=== PATIENT | female | born 1965 | race Caucasian/White ===

== ENCOUNTER → 2019-01-09 14:50 | Outpatient (CLI) | payer OTHER, SELFPAY ==
--- NOTE | 2019-01-09 14:55 | XR_ITS ---
XR foot wt bearing RT 3V HISTORY: ITS.REASON: pain ORDERING PHYSICIAN: Bebe Matias DPM PATIENT AGE: 53 years COMPARISON: None FINDINGS: No fracture or dislocation. No lytic or blastic change. There is normal mineralization.. The joint spaces are well-preserved. No significant degenerative/arthritic changes. No erosive changes evident. There is a 12 mm calcaneal spur. A small calcific density is present at the medial and distal aspect of the proximal phalanx of the third toe and could represent an old avulsion fracture. IMPRESSION: 1. No acute finding. 2. Prominent calcaneal spur. 3. Possible old avulsion fracture of the proximal phalanx of the third toe
--- NOTE | 2019-01-09 14:55 | XR_ITS ---
XR ankle wt bearing RT min 3V HISTORY: ITS.REASON: pain ORDERING PHYSICIAN: Bebe Matias DPM PATIENT AGE: 53 years Comparison: 9 FINDINGS: No fracture or dislocation. No lytic or blastic change. There is normal mineralization.. The joint spaces are well-preserved. No significant degenerative/arthritic changes. No erosive changes evident. IMPRESSION: Negative ankle, no acute finding
--- NOTE | 2019-01-09 14:55 | XR_ITS ---
XR ankle wt bearing LT min 3V HISTORY: ITS.REASON: pain ORDERING PHYSICIAN: Bebe Matias DPM PATIENT AGE: 53 years Comparison: None FINDINGS: A well-circumscribed small bony fragment is present at the tip of the medial malleolus and may be due to an old fracture or accessory center of ossification. Minimal hypertrophic changes are present at the tip of the lateral malleolus. Scattered soft tissue calcifications are present may be due to phleboliths. No acute fracture or dislocation evident. IMPRESSION: Chronic changes, no acute finding
--- NOTE | 2019-01-09 14:55 | XR_ITS ---
XR foot wt bearing LT 3V HISTORY: ITS.REASON: pain ORDERING PHYSICIAN: Bebe Matias DPM PATIENT AGE: 53 years COMPARISON: None FINDINGS: There is a small calcaneal spur along the plantar surface of the calcaneus at 10 mm. Minimal spurring is also present involving the anterior distal aspect of the navicular. No fracture or dislocation. No lytic or blastic change. Normal alignment IMPRESSION: Minimal hypertrophic changes of the navicular a small calcaneal spur noted otherwise negative
== END ==
PROVIDERS: PCP Nurse Practitioner; Visit Provider Podiatrist
DX: S99.911A Unspecified injury of right ankle, initial encounter (principal); M25.571 Pain in right ankle and joints of right foot
CPT/HCPCS: 73610; 73630

== ENCOUNTER → 2019-07-10 14:07 | Outpatient (POV) | payer OTHER, SELFPAY | DX: Z00.00 Encounter for general adult medical examination without abnormal findings (principal) ==

== ENCOUNTER → 2022-01-10 19:24 | Outpatient (CLI) | payer OTHER, SELFPAY | PROVIDERS: PCP Nurse Practitioner Family; Visit Provider Nurse Practitioner Family | DX: R06.83 Snoring; R40.0 Somnolence | CPT/HCPCS: 95806 ==

== ENCOUNTER → 2022-02-16 09:31 | Outpatient (CLI) | payer OTHER, SELFPAY ==
[2022-02-16 10:25] LABS: Basophils # 0.2 K/mm3 (0-0.2); Basophils % 1.1 % (0.1-2.0); Eosinophils # 0.2 K/mm3 (0.0-0.4); Eosinophils % 1.2 % (0.1-12.0); Hemoglobin 15.8 g/dL (12.2-16.2); Lymphocytes # 2.9 K/mm3 (0.7-4.5); Lymphocytes % 19.3 % (10-50); Mean Corpuscular HGB Conc 35.2 g/dL (31.8-35.4); Mean Corpuscular Hemoglobin 33.9 pg (27.0-31.2); Mean Corpuscular Volume 96.4 fl (81-99); Mean Platelet Volume 10.8 fl (7.4-10.4); Monocytes # 0.7 K/mm3 (0.1-1.0); Monocytes % 4.5 % (1.7-9.3); Platelet Count 208 K/mm3 (142-424); Red Blood Count 4.66 M/mm3 (4.20-5.40); White Blood Count 14.9 K/mm3 (4.8-10.8)
[2022-02-16 11:34] LABS: Chloride 105 mmol/L (98-107); Potassium 3.6 mmoL/L (3.5-5.1); Sodium 138 mmol/L (136-145)
[2022-02-16 11:36] LABS: Alanine Aminotransferase 20 U/L (12-78); Aspartate Amino Transferase 22 U/L (14-36); Blood Urea Nitrogen 13 mg/dl (7-17); Estimated Glomerular Filt Rate 65 ml/min (>60); GFR (African American) 78 ML/MIN (>60)
[2022-02-16 11:37] LABS: Albumin Level 4.3 g/dl (3.5-5.0); Albumin/Globulin Ratio 1.4 (1.1-1.8); Alkaline Phosphatase 86 U/L (38-126); Anion Gap 12.6 mEq/L (5-15); Bilirubin,Total 0.3 mg/dl (0.2-1.3); Calcium 8.6 mg/dl (8.4-10.2); Carbon Dioxide 24 mmol/L (22.0-30.0); Globulin 3.1 g/dL (1.3-3.2); Glucose 122 mg/dl (74-100); Total Protein,Serum 7.4 g/dl (6.3-8.2)
[2022-02-16 11:38] LABS: Hemoglobin A1C 6.4 % (4.0-6.0)
[2022-02-16 12:13] LABS: Ferritin 122 ng/ml (11.1-264)
== END ==
PROVIDERS: Visit Provider Specialist
DX: E11.59 Type 2 diabetes mellitus with other circulatory complications (principal); E83.10 Disorder of iron metabolism, unspecified; G25.81 Restless legs syndrome; G43.009 Migraine without aura, not intractable, without status migrainosus; I10 Essential (primary) hypertension; Z79.84 Long term (current) use of oral hypoglycemic drugs
CPT/HCPCS: 36415; 80053; 82728; 83036; 85025

== ENCOUNTER → 2022-02-18 10:46 | Outpatient (CLI) | payer OTHER, SELFPAY | PROVIDERS: Visit Provider Nurse Practitioner Family | DX: Z00.00 Encounter for general adult medical examination without abnormal findings (principal); D72.829 Elevated white blood cell count, unspecified; R22.1 Localized swelling, mass and lump, neck; R52 Pain, unspecified | CPT/HCPCS: 87086 ==

== ENCOUNTER → 2022-03-02 09:44 | Outpatient (CLI) | payer OTHER, SELFPAY ==
--- NOTE | 2022-03-02 09:44 | US_ITS ---
FINAL REPORT CLINICAL HISTORY: palpable area left neck FINDINGS: limited sonographic images of the left neck were obtained. At the level of the palpable abnormality is an ovoid, hypoechoic mass measuring 2.7 x 1.8 cm. This does not clearly represent a lymph node. The submandibular and parotid glands are unremarkable. IMPRESSION: Mass at the level of the palpable abnormality, neoplasia is not excluded . Recommend follow-up infuse neck CT to better evaluate . If clinically indicated, this should be amenable to needle sampling. Reviewed, Interpreted and Dictated by Kirill Gonsales MD Transcribed by Tracy Turner Authenticated by Kirill Gonsales MD on 03/02/2022 01:36:48 PM [facility]
[2022-03-02 10:15] LABS: MANUAL DIFFERENTIAL MANUAL DIFFERENTIAL (MANUAL DIFF)
[2022-03-02 10:51] LABS: Basophils # 0.1 K/mm3 (0-0.2); Basophils % 0.6 % (0.1-2.0); Eosinophils # 0.2 K/mm3 (0.0-0.4); Hematocrit 45.2 % (37.0-47.0); Hemoglobin 15.6 g/dL (12.2-16.2); Lymphocytes % 33.5 % (10-50); Mean Corpuscular HGB Conc 34.5 g/dL (31.8-35.4); Mean Corpuscular Hemoglobin 33.6 pg (27.0-31.2); Mean Corpuscular Volume 97.4 fl (81-99); Mean Platelet Volume 10.4 fl (7.4-10.4); Monocytes # 0.4 K/mm3 (0.1-1.0); Monocytes % 4.8 % (1.7-9.3); Neutrophils # 5.3 K/mm3 (1.8-7.8); Platelet Count 222 K/mm3 (142-424); Red Blood Count 4.64 M/mm3 (4.20-5.40); Red Cell Distribution Width 13.7 % (11.5-17.5); White Blood Count 8.9 K/mm3 (4.8-10.8)
[2022-03-02 11:41] LABS: Erythrocyte Sedimentation Rate 27 mm/hr (0-30)
[2022-03-02 11:52] LABS: Alanine Aminotransferase 27 U/L (12-78); Albumin Level 4.3 g/dl (3.5-5.0); Albumin/Globulin Ratio 1.4 (1.1-1.8); Alkaline Phosphatase 87 U/L (38-126); Anion Gap 11.3 mEq/L (5-15); Aspartate Amino Transferase 27 U/L (14-36); Bilirubin,Total 0.3 mg/dl (0.2-1.3); Blood Urea Nitrogen 14 mg/dl (7-17); Carbon Dioxide 29 mmol/L (22.0-30.0); Chloride 102 mmol/L (98-107); Chol/HDL Ratio 4.3 (1-3.5); Cholesterol 124 mg/dl (140-200); Estimated Glomerular Filt Rate 65 ml/min (>60); GFR (African American) 78 ML/MIN (>60); Globulin 3.1 g/dL (1.3-3.2); Glucose 126 mg/dl (74-100); HDL Cholesterol 29 mg/dl (40-60); Potassium 3.3 mmoL/L (3.5-5.1); Sodium 139 mmol/L (136-145); Total Protein,Serum 7.4 g/dl (6.3-8.2); Triglycerides 239 mg/dl (30-150); Uric Acid 5.4 mg/dl (2.5-6.2); VLDL Cholesterol 48 mg/dL (0-40)
[2022-03-02 12:03] LABS: Direct LDL Cholesterol 51.87 mg/dL (100-129)
[2022-03-02 12:10] LABS: 25-OH Vitamin D, Total 24.9 ng/mL (30-100)
[2022-03-02 12:11] LABS: T4 (Thyroxine) 8.4 ug/dl (5.53-11.0)
[2022-03-02 12:24] LABS: Thyroid Stimulating Hormone 3.22 uIU/mL (0.465-4.68)
[2022-03-02 13:41] LABS: Lymphocytes % 30 % (10-50); Monocytes % 6 % (2-9); Neutrophils % 64 % (42-76); Total Cells Counted 100
[2022-03-02 13:42] LABS: Platelet Estimate Normal; RBC Morphology Normal
[2022-03-03 08:18] LABS: RA Latex Turbid. 26.5 IU/mL (<14.0)
[2022-03-04 10:14] LABS: Peripheral Smear Review Scanned Result
[2022-03-04 21:43] LABS: Antinuclear Antibodies, IFA POSITIVE
== END ==
PROVIDERS: PCP Nurse Practitioner Family; Visit Provider Nurse Practitioner Family
DX: Z00.00 Encounter for general adult medical examination without abnormal findings (principal); R22.1 Localized swelling, mass and lump, neck; D72.829 Elevated white blood cell count, unspecified; R52 Pain, unspecified
CPT/HCPCS: 36415; 76536; 80053; 80061; 82306; 84436; 84443; 84550; 85007; 85014; 85018; 85025; 85048; 85049; 85651; 86038; 86431

== ENCOUNTER → 2022-04-14 10:50 | Outpatient (CLI) | payer OTHER, SELFPAY ==
[2022-04-14 10:57] LABS: MANUAL DIFFERENTIAL MANUAL DIFFERENTIAL (MANUAL DIFF)
[2022-04-14 11:18] LABS: Basophils # 0.2 K/mm3 (0-0.2); Basophils % 1.8 % (0.1-2.0); Eosinophils # 0.2 K/mm3 (0.0-0.4); Eosinophils % 2.3 % (0.1-12.0); Hematocrit 45.7 % (37.0-47.0); Hemoglobin 15.5 g/dL (12.2-16.2); Lymphocytes # 3.4 K/mm3 (0.7-4.5); Lymphocytes % 34.2 % (10-50); Mean Corpuscular HGB Conc 33.9 g/dL (31.8-35.4); Mean Corpuscular Hemoglobin 33.5 pg (27.0-31.2); Mean Corpuscular Volume 98.7 fl (81-99); Monocytes # 0.5 K/mm3 (0.1-1.0); Monocytes % 5.1 % (1.7-9.3); Neutrophils # 5.6 K/mm3 (1.8-7.8); Neutrophils % 56.6 % (37.0-80.0); Platelet Count 200 K/mm3 (142-424); Red Blood Count 4.63 M/mm3 (4.20-5.40); Red Cell Distribution Width 13.7 % (11.5-17.5); White Blood Count 9.8 K/mm3 (4.8-10.8)
[2022-04-14 14:42] LABS: Anisocytosis 1+; Eosinophils % 1 % (0-3); Lymphocytes % 34 % (10-50); Macrocytosis 1+; Monocytes % 12 % (2-9); Neutrophils % 53 % (42-76); Platelet Estimate Normal; Total Cells Counted 100
== END ==
PROVIDERS: Visit Provider Specialist
DX: D72.829 Elevated white blood cell count, unspecified (principal)
CPT/HCPCS: 36415; 85007; 85014; 85018; 85048; 85049

== ENCOUNTER → 2022-04-27 07:32 | Outpatient (CLI) | payer OTHER, SELFPAY ==
--- NOTE | 2022-04-27 07:32 | US_ITS ---
FINAL REPORT CLINICAL HISTORY: left neck pain FINDINGS: Ultrasound guided left neck massbiopsy. HISTORY: Left neckmass. PROCEDURE: After informed consent was obtained and a time-out was performed, the patient was prepped and draped in usual sterile fashion over the left anterior neck. Utilizing local anesthesia and sterile technique with a 25-gauge needle, access to the masswas obtained. A total of 2 passes were made. The patient experienced a great deal of pain when the needle was placed into the mass. The pain was described as electrical and traveling to the posterior scapular region. The patient was unable to tolerate any further biopsy passes. The patient received no conscious sedation. IMPRESSION: Status post ultrasound guided biopsy of a thyroid nodule which was limited by the patient's severe pain experienced when needle was placed into the mass. Only 2 passes were able to be obtained. Reviewed, Interpreted and Dictated by Kalyan Romano III, MD Transcribed by GURDEEP Thacker Authenticated and . [facility]
== END ==
PROVIDERS: PCP Nurse Practitioner Family; Visit Provider Otolaryngology
DX: R59.0 Localized enlarged lymph nodes (principal)
CPT/HCPCS: 10005

== ENCOUNTER → 2022-05-25 16:31 | Outpatient (CLI) | payer OTHER, SELFPAY ==
[2022-05-25 18:31] LABS: Blood Urea Nitrogen 10 mg/dl (7-17); Estimated Glomerular Filt Rate 57 ml/min (>60); GFR (African American) 69 ML/MIN (>60)
== END ==
PROVIDERS: PCP Nurse Practitioner Family; Visit Provider Otolaryngology
DX: Z01.812 Encounter for preprocedural laboratory examination (principal)
CPT/HCPCS: 36415; 82565; 84520

== ENCOUNTER → 2022-05-26 08:25 | Outpatient (CLI) | payer OTHER, SELFPAY ==
--- NOTE | 2022-05-26 08:26 | MR_ITS ---
FINAL REPORT CLINICAL HISTORY: left neck mass. LEFT ARM PAIN. MIGRAINE HEADACHE. MASS ON LEFT SIDE OF NECK. 19ML PROHANCE GIVEN. COMPARISON: Prior ultrasounds dated March 02, 2022 and April 27, 2022 FINDINGS: Multiplanar MR imaging of the cervical spine was performed without and with contrast. On the sagittal T2-weighted images, disc degeneration is seen throughout. There is endplate change at C5-6 and C6-7. The vertebral alignment is normal. There is straightening of the normal cervical curvature which could be due to positioning or muscle spasm. There is no evidence of fracture. No bony mass is identified. The cervical spinal cord has an unremarkable appearance without evidence of mass, edema or syrinx. C2-3: No significant canal stenosis or neural foraminal narrowing is identified. C3-4:There are left uncovertebral osteophytes. No significant canal stenosis or neural foraminal narrowing is identified. C4-5: An annular bulge is present. No significant canal stenosis or neural foraminal narrowing is identified. C5-6: There is a disc osteophyte complex. There is severe right and mild left neural foraminal narrowing. There is a small central disc protrusion. C6-7: There is a disc osteophyte complex with severe bilateral neural foraminal narrowing. There is mild central canal stenosis with an AP thecal sac diameter of 9 mm. C7-T1: No significant canal stenosis or neural foraminal narrowing is identified. There is a 28 mm heterogeneous well-circumscribed mass in the left side of the neck at the level of C5. This demonstrates mostly central contrast enhancement and has an appearance most worrisome for neoplasm. IMPRESSION: Enhancing 28 mm left neck mass most worrisome for neoplasm. This may represent a nerve sheath tumor. Multilevel degenerative disc disease with areas of neural foraminal narrowing and central canal stenosis. Small central disc protrusion at C5-C6. Reviewed, Interpreted and Dictated by Kalyan Romano III, MD Transcribed by Cale Urbina Authenticated and [facility]
== END ==
PROVIDERS: PCP Nurse Practitioner Family; Visit Provider Otolaryngology
DX: R59.0 Localized enlarged lymph nodes (principal)
CPT/HCPCS: 72156; 76376; A9576

== ENCOUNTER → 2022-07-05 06:45 | Outpatient (CLI) | payer OTHER, SELFPAY | PROVIDERS: Visit Provider Nurse Practitioner Family | DX: B35.1 Tinea unguium (principal) | CPT/HCPCS: 87102; 87206; 87220 ==

== ENCOUNTER 2022-09-29 16:30 | Outpatient (RCR) | payer OTHER, SELFPAY ==
--- NOTE | 2022-08-30 18:01 | HMH.PTOPEV ---
PT Outpatient Evaluation Rehab PT Outpatient Evaluation Start: 08/30/22 16:44 Freq: Status: Active Protocol: Document 08/30/22 16:44 LAWANDA (Rec: 08/30/22 18:01 LAWANDA [id number]) E-signed By Joselyn Rahman, PT Outpatient Therapy Subjective History Subjective History Pt is a 57 y/o female that reports she felt a lump on the side of her neck awhile ago but was afraid to get it checked out due to family history of cancer. Pt reports she was going to the chiropractor in January because her neck was hurting and he referred her to the doctor after noticing the lump. Pt reports she noticed herself stumbling and intermittent paresthesia to the LUE for awhile as well. Pt had a MRI of her cervical spine performed at [facility] on 05/26/22 with report of enhancing 28 mm left neck mass most worrisome for neoplasm.This may represent a nerve sheath tumor.Multilevel degenerative disc disease with areas of neural foraminal narrowing and central canal stenosis.Small central disc protrusion at C5- C6. Pt reports she had a brachial N tumor sheath removed at on 07/19/22 which improved migraine symptoms, neck pain and stumbling. Pt reports they sent the mass out for testing and was found to be benign. Pt's main complaint is left shoulder weakness and limited mobility following surgery. Pt states it felt like my left shoulder was hit with a hammer after surgery. Pt reports she is unable to lift her arm overhead such as to style or wash her hair. Pt denies current neck pain or paresthesia. Pt reports random , intermittent sharp twinges
--- NOTE | 2022-09-29 18:09 | HMH.RHREAS ---
Rehab Reassessment Rehab OP Re-assessment Start: 09/29/22 16:31 Freq: Status: Active Protocol: Document 09/29/22 17:52 DEBORAHKEHINDE (Rec: 09/29/22 18:09 LAWANDA [id number]) E-signed By Joselyn Rahman, PT Rehab Re-assessment Subjective Subjective Pt reports she feels close to 100% improved since starting PT. Pt continues to deny cervical or shoulder pain with only intermittent twinges of pain around the cervical incision. Pt reports within the last week she has noticed a lot of improvements with left shoulder AROM and strength but still notices some weakness with lifting items and protective habits of the shoulder. Objective Objective Notes Cervical AROM: flex 50, ext 40 , RLF 40, LLF 45, Rrot 65, Lrot 65 Shoulder AROM: WNL (seated and supine) LUE MMT: shoulder flex/abd 4/5 , ER/IR 4+/5, elbow flex/ext 5 /5 Assessment Progress Assessment Progressing as Expected Assessment Notes Pt has attended 6 PT visits consisting of aerobic exercise , cervical and shoulder mobility, strengthening and stretching along with modalities with good tolerance . Pt demonstrated improved cervical and shoulder AROM and strength this date. Pt has met all PT goals and is appropriate to discharge to independent [facility]. Pt was provided with HEP and theraband to continue shoulder strengthening independently. Patient goals met ST/5 LT/9 Goals Not Met n/a Revised Goals n/a Plan Plan Discharge to independent HEP Frequency of Therapy 0 Duration of therapy 0 Time and Billing Re-Eval Time 8 Re-Eval Billing Units 1 PHYSICIAN CERTIFICATION:
== END 2022-09-29 16:35 | disposition home or self-care (01) ==
LOC: PT 16:30
PROVIDERS: PCP Nurse Practitioner Family; Visit Provider Nurse Practitioner Family
DX: M54.2 Cervicalgia (principal); D36.10 Benign neoplasm of peripheral nerves and autonomic nervous system, unspecified
CPT/HCPCS: 97010; 97014; 97035; 97110; 97163; 97164; 97530; 97535; G0283

== ENCOUNTER → 2022-10-11 15:14 | Outpatient (CLI) | payer OTHER, SELFPAY ==
[2022-10-11 16:09] LABS: Hemoglobin A1C 6.8 % (4.0-6.0)
[2022-10-11 16:42] LABS: Chloride 98 mmol/L (98-107); Potassium 3.6 mmoL/L (3.5-5.1); Sodium 140 mmol/L (136-145)
[2022-10-11 16:44] LABS: Alanine Aminotransferase 27 U/L (12-78); Aspartate Amino Transferase 27 U/L (14-36); Blood Urea Nitrogen 17 mg/dl (7-17); Estimated Glomerular Filt Rate 57 ml/min (>60); GFR (African American) 69 ML/MIN (>60)
[2022-10-11 16:45] LABS: Albumin Level 4.6 g/dl (3.5-5.0); Albumin/Globulin Ratio 1.4 (1.1-1.8); Alkaline Phosphatase 81 U/L (38-126); Anion Gap 16.6 mEq/L (5-15); Calcium 10.1 mg/dl (8.4-10.2); Carbon Dioxide 29 mmol/L (22.0-30.0); Globulin 3.3 g/dL (1.3-3.2); Glucose 160 mg/dl (74-100); Total Protein,Serum 7.9 g/dl (6.3-8.2)
[2022-10-11 16:50] LABS: C-Reactive Protein 3.9 mg/L (0-4)
[2022-10-11 16:53] LABS: Bilirubin,Total < 0.1 mg/dl (0.2-1.3)
[2022-10-11 17:17] LABS: Erythrocyte Sedimentation Rate 59 mm/hr (0-30)
[2022-10-11 17:23] LABS: Basophils # 0.1 K/mm3 (0-0.2); Basophils % 1.2 % (0.1-2.0); Eosinophils # 0.3 K/mm3 (0.0-0.4); Eosinophils % 3.4 % (0.1-12.0); Hematocrit 44.9 % (37.0-47.0); Hemoglobin 15.1 g/dL (12.2-16.2); Lymphocytes # 3.6 K/mm3 (0.7-4.5); Lymphocytes % 36.8 % (10-50); Mean Corpuscular HGB Conc 33.7 g/dL (31.8-35.4); Mean Corpuscular Hemoglobin 32.6 pg (27.0-31.2); Mean Corpuscular Volume 96.8 fl (81-99); Mean Platelet Volume 10.3 fl (7.4-10.4); Monocytes # 0.5 K/mm3 (0.1-1.0); Monocytes % 5.2 % (1.7-9.3); Neutrophils # 5.2 K/mm3 (1.8-7.8); Neutrophils % 53.3 % (37.0-80.0); Platelet Count 240 K/mm3 (142-424); Red Blood Count 4.64 M/mm3 (4.20-5.40); Red Cell Distribution Width 13.3 % (11.5-17.5); White Blood Count 9.8 K/mm3 (4.8-10.8)
== END ==
PROVIDERS: PCP Nurse Practitioner Family; Visit Provider Nurse Practitioner Family
DX: E11.69 Type 2 diabetes mellitus with other specified complication (principal); Z79.84 Long term (current) use of oral hypoglycemic drugs
CPT/HCPCS: 36415; 80053; 83036; 85025; 85651; 86140

== ENCOUNTER → 2022-10-18 11:04 | Outpatient (CLI) | payer OTHER, SELFPAY ==
--- NOTE | 2022-10-18 11:08 | US_ITS ---
FINAL REPORT CLINICAL HISTORY: Previous smoker, DM, claudication, bilateral rest pain. FINDINGS: LOWER EXTREMITY SEGMENTAL PRESSURE MEASUREMENTS Pressure indices are as follows: RIGHT LOWER EXTREMITY: Ankle/brachial index: 0.99 Thigh: 0.97 Calf: 1.06 Ankle, posterior tibial artery: 0.99 Ankle, dorsalis pedis: 0.95 Toe: 0.77 Comments: LEFT LOWER EXTREMITY: Ankle/brachial index: 1.02 Thigh: 1.06 Calf: 1.05 Ankle, posterior tibial artery: 1.01 Ankle, dorsalis pedis: 1.02 Toe: 0.78 Comments: IMPRESSION: No evidence of significant obstructive peripheral vascular disease of the lower extremities Reviewed, Interpreted and Dictated by Sridhar Chavez MD Transcribed by Sherita Connell Authenticated and [facility]
== END ==
PROVIDERS: PCP Nurse Practitioner Family; Visit Provider Nurse Practitioner Family
DX: I70.213 Atherosclerosis of native arteries of extremities with intermittent claudication, bilateral legs (principal)
CPT/HCPCS: 93923

== ENCOUNTER → 2022-12-07 09:22 | Outpatient (CLI) | payer OTHER, SELFPAY ==
--- NOTE | 2022-12-07 10:24 | XR_ITS ---
FINAL REPORT CLINICAL HISTORY: DIARRHEA since colonoscopy FINDINGS: A single supine view the abdomen was obtained. The bowel gas pattern is nonspecific but nonobstructive. There is a calcification in the right upper quadrant which is likely a gallstone. Osseous structures are within normal limits. IMPRESSION: Nonspecific but nonobstructive bowel gas pattern. Calcification in the right upper quadrant is likely a gallstone. Reviewed, Interpreted and Dictated by Talita Murdock MD Transcribed by Sherita Connell Authenticated and . [facility]
[2022-12-07 11:23] LABS: Ferritin 122 ng/ml (11.1-264)
[2022-12-08 17:05] LABS: H. pylori Breath Test Negative (Negative)
== END ==
PROVIDERS: PCP Nurse Practitioner Family; Referring Provider Physician Assistant; Visit Provider Specialist
DX: E83.10 Disorder of iron metabolism, unspecified (principal); K21.9 Gastro-esophageal reflux disease without esophagitis
CPT/HCPCS: 36415; 74018; 82728; 83013

== ENCOUNTER → 2023-04-18 11:44 | Outpatient (CLI) | payer OTHER, SELFPAY ==
[2023-04-18 12:36] LABS: Basophils # 0.1 K/mm3 (0-0.2); Basophils % 0.7 % (0.1-2.0); Eosinophils # 0.2 K/mm3 (0.0-0.4); Eosinophils % 3.1 % (0.1-12.0); Hematocrit 41.8 % (37.0-47.0); Hemoglobin 14.2 g/dL (12.2-16.2); Lymphocytes # 2.7 K/mm3 (0.7-4.5); Lymphocytes % 35.8 % (10-50); Mean Corpuscular HGB Conc 33.9 g/dL (31.8-35.4); Mean Corpuscular Hemoglobin 32.2 pg (27.0-31.2); Mean Corpuscular Volume 95.1 fl (81-99); Monocytes # 0.4 K/mm3 (0.1-1.0); Monocytes % 4.9 % (1.7-9.3); Neutrophils # 4.2 K/mm3 (1.8-7.8); Neutrophils % 55.5 % (37.0-80.0); Platelet Count 199 K/mm3 (142-424); Red Cell Distribution Width 13.2 % (11.5-17.5); White Blood Count 7.6 K/mm3 (4.8-10.8)
[2023-04-18 12:56] LABS: Alanine Aminotransferase 31 U/L (12-78); Albumin Level 4.3 g/dl (3.5-5.0); Alkaline Phosphatase 73 U/L (38-126); Aspartate Amino Transferase 32 U/L (14-36); Bilirubin,Indirect 0.2 mg/dL (0.0-0.9); Bilirubin,Total 0.2 mg/dl (0.2-1.3); Bilirubin,Unconjugated 0.3 mg/dL (0.0-1.1); Estimated Glomerular Filt Rate 65 ml/min (>60); GFR (African American) 78 ML/MIN (>60); Total Protein,Serum 7.3 g/dl (6.3-8.2)
[2023-04-19 15:29] LABS: Albumin 3.8 g/dL (2.9-4.4); Alpha-1-Globulin 0.2 g/dL (0.0-0.4); Alpha-2-Globulin 0.9 g/dL (0.4-1.0); Gamma Globulin 1.4 g/dL (0.4-1.8); Protein, Total 7.3 g/dL (6.0-8.5)
[2023-04-20 12:15] LABS: Immunoglobulin A, Qn 464 mg/dL (87-352); Immunoglobulin G, Qn 1278 mg/dL (586-1602); Immunoglobulin M, Qn 78 mg/dL (26-217)
[2023-04-25 07:20] LABS: Miscellaneous Test NONE DETECTED
== END ==
PROVIDERS: PCP Nurse Practitioner Family
DX: M35.00 Sjogren syndrome, unspecified (principal)
CPT/HCPCS: 36415; 80076; 82565; 82784; 84155; 84165; 85025; 86334

== ENCOUNTER 2023-05-01 09:46 | Observation (INO) | payer OTHER, SELFPAY ==
[2023-05-01] VITALS (8 sets, daily range): BP systolic 136–167; BP diastolic 78–98; PULSE 65–78; RESP 16–20; TEMP 36.6–36.9; O2SAT 96–99; BMI 31.3
--- NOTE | 2023-05-01 09:59 | ECG_ITS ---
APPROVED REPORT Exam: Resting ECG HR:77 bpm ECG Measurements Heart Rate 77 AXES OR 146 P 37 QRSd 101 QRS 56 QT 384 T 45 QTc 415 Conclusion SINUS RHYTHM NONSPECIFIC ST & T-WAVE ABNORMALITY BORDERLINE ECG UNCONFIRMED REPORT Electronically signed by : Palomo Montes MD 05/02/2023 20:13:42
--- NOTE | 2023-05-01 10:12 | XR_ITS ---
FINAL REPORT CLINICAL HISTORY: rscp COMPARISON: None FINDINGS: SINGLE VIEW CHEST The heart size is normal. The mediastinum is within normal limits. No acute pulmonary abnormality is identified. There is no evidence of pneumothorax. The bony thorax is intact. IMPRESSION: No acute cardiopulmonary process. Reviewed, Interpreted and Dictated by Kalyan Romano III, MD Transcribed by Fany Mcdaniel Authenticated and [facility]
--- NOTE | 2023-05-01 10:12 | US_ITS ---
FINAL REPORT CLINICAL HISTORY: ruq pain r/o bailey FINDINGS: Sonographic images of the right upper quadrant were obtained. The pancreas is partially obscured. Note is made of a fatty liver. There is a gallstone present near the neck of the gallbladder. There is pericholecystic fluid present. The wall of the gallbladder is thickened and measures up to 8 mm in size. The common duct measures 4.7 mm. Limited images of the right kidney are unremarkable. IMPRESSION: Gallstone present with gallbladder wall thickening and pericholecystic fluid, worrisome for acute cholecystitis. Fatty liver. Reviewed, Interpreted and Dictated by Kalyan Romano III, MD Transcribed by Fany Mcdaniel Authenticated and [facility]
--- NOTE | 2023-05-01 10:14 | HMH.EDGENADL ---
Discharge Plan Disposition Patient Disposition: Admitted Condition: Fair Chief Complaint: PAIN Prescriptions Prescriptions: No Action cevimeline [Evoxac] 30 mg capsule 1 cap PO TID fluticasone propionate 50 mcg/actuation spray,suspension 1 spray INTRANASAL DAILY Rx Instructions: administer into each nostril urea 40 % cream 1 applic TOPICAL BID Qty: 85 1RF Rx Instructions: apply to b/l feet and callus areas Ubrelvy 100 mg tablet See Rx Instructions .ROUTE .COMPLEX Qty: 10 2RF Dose Instruction: Take 1 Tablet by mouth as needed for Migraine. Rx Instructions: Take 1 Tablet by mouth as needed for Migraine. ibuprofen 800 mg tablet 800 mg PO Q8H PRN Label Comments: TAKE 1 TABLET BY MOUTH EVERY 8 HOURS NEEDED FOR PAIN. Horizant 300 mg tablet extended release 300 mg PO HS MDD 300 mg Qty: 30 5RF Rx Instructions: 300 mg po 2 hours before bedtime Ozempic 0.25 mg or 0.5 mg (2 mg/3 mL) pen injector 0.25 mg SQ WEEKLY Qty: 3 2RF Rx Instructions: for 4 weeks bupropion HCl 150 mg tablet extended release 24 hr See Rx Instructions .ROUTE .COMPLEX Qty: 90 1RF Dose Instruction: Take 1 tablet by mouth once daily Rx Instructions: Take 1 tablet by mouth once daily rosuvastatin 5 mg tablet See Rx Instructions .ROUTE .COMPLEX Qty: 90 1RF Dose Instruction: Take 1 tablet by mouth once daily Rx Instructions: Take 1 tablet by mouth once daily metformin 500 mg tablet See Rx Instructions .ROUTE .COMPLEX Qty: 120 2RF Dose Instruction: Take 2 Tablets by mouth twice daily. Rx Instructions: Take 2 Tablets by mouth twice daily. cholecalciferol (vitamin D3) 1,250 mcg (50,000 unit) capsule See Rx Instructions .ROUTE .COMPLEX Qty: 4 3RF Dose Instruction: Take 1 capsule by mouth once weekly Rx Instructions: Take 1 capsule by mouth once weekly glimepiride 2 mg tablet See Rx Instructions .ROUTE .COMPLEX Qty: 90 0RF Dose Instruction: TAKE ONE TABLET BY MOUTH ONCE DAILY Rx Instructions: TAKE ONE TABLET BY MOUTH ONCE DAILY albuterol sulfate [Ventolin HFA] 90 mcg/actuation HFA aerosol inhaler See Rx Instructions .ROUTE .COMPLEX Qty: 18 2RF Dose Instruction: INHALE 2 PUFFS INTO THE LUNGS 4 TIMES DAILY Rx Instructions: INHALE 2 PUFFS INTO THE LUNGS 4 TIMES DAILY cetirizine 10 mg tablet See Rx Instructions .ROUTE .COMPLEX Qty: 30 1RF Dose Instruction: Take 1 Tablet by mouth once daily. Rx Instructions: Take 1 Tablet by mouth once daily. cholecalciferol (vitamin D3) [Vitamin D3] 50 mcg (2,000 unit) capsule See Rx Instructions .ROUTE .COMPLEX Qty: 30 3RF Dose Instruction: Take 1 Capsule by mouth once daily. Rx Instructions: Take 1 Capsule by mouth once daily. omeprazole 40 mg capsule,delayed release(DR/EC) See Rx Instructions .ROUTE .COMPLEX Qty: 30 2RF Dose Instruction: Take 1 Capsule by mouth once daily. Rx Instructions: Take 1 Capsule by mouth once daily. fluticasone propion-salmeterol [Advair Diskus] 100-50 mcg/dose blister with device See Rx Instructions .ROUTE .COMPLEX Qty: 60 2RF Dose Instruction: INHALE 1 PUFF INTO THE LUNGS TWICE DAILY Rx Instructions: INHALE 1 PUFF INTO THE LUNGS TWICE DAILY topiramate 25 mg capsule, sprinkle See Rx Instructions .ROUTE .COMPLEX Qty: 90 1RF Dose Instruction: Take 1 capsule by mouth once daily. Rx Instructions: Take 1 capsule by mouth once daily. hydrochlorothiazide 12.5 mg capsule See Rx Instructions .ROUTE .COMPLEX Qty: 90 1RF Dose Instruction: Take 1 Capsule by mouth once daily. Rx Instructions: Take 1 Capsule by mouth once daily. Referrals Follow up/Referrals: Ryan Stack APRN [Primary Care Provider] - See instructions Clinical Impressions Clinical Impression: Acute calculous cholecystitis D
[2023-05-01 10:20] LABS: Basophils # 0.1 K/mm3 (0-0.2); Basophils % 0.6 % (0.1-2.0); Eosinophils # 0.1 K/mm3 (0.0-0.4); Eosinophils % 1.6 % (0.1-12.0); Hematocrit 45.9 % (37.0-47.0); Hemoglobin 15.1 g/dL (12.2-16.2); Lymphocytes # 2.9 K/mm3 (0.7-4.5); Lymphocytes % 35.4 % (10-50); Mean Corpuscular HGB Conc 32.9 g/dL (31.8-35.4); Mean Corpuscular Hemoglobin 32.2 pg (27.0-31.2); Mean Corpuscular Volume 98.1 fl (81-99); Mean Platelet Volume 9.6 fl (7.4-10.4); Monocytes # 0.4 K/mm3 (0.1-1.0); Monocytes % 5.2 % (1.7-9.3); Neutrophils # 4.7 K/mm3 (1.8-7.8); Neutrophils % 57.2 % (37.0-80.0); Platelet Count 207 K/mm3 (142-424); Red Blood Count 4.67 M/mm3 (4.20-5.40); Red Cell Distribution Width 13.4 % (11.5-17.5); White Blood Count 8.3 K/mm3 (4.8-10.8)
[2023-05-01 10:21] LABS: Chloride 103 mmol/L (98-107); Potassium 4.1 mmoL/L (3.5-5.1); Sodium 140 mmol/L (136-145)
[2023-05-01 10:24] LABS: Alanine Aminotransferase 38 U/L (12-78); Albumin Level 4.3 g/dl (3.5-5.0); Albumin/Globulin Ratio 1.2 (1.1-1.8); Alkaline Phosphatase 69 U/L (38-126); Anion Gap 17.1 mEq/L (5-15); Aspartate Amino Transferase 41 U/L (14-36); Bilirubin,Total 0.1 mg/dl (0.2-1.3); Blood Urea Nitrogen 14 mg/dl (7-17); Calcium 8.9 mg/dl (8.4-10.2); Carbon Dioxide 24 mmol/L (22.0-30.0); Creatinine Clearance Estimated 99 mL/min (50-200); Estimated Glomerular Filt Rate 65 ml/min (>60); GFR (African American) 78 ML/MIN (>60); Globulin 3.5 g/dL (1.3-3.2); Glucose 117 mg/dl (74-100); Lipase 89 U/L (23-300); Total Protein,Serum 7.8 g/dl (6.3-8.2)
--- NOTE | 2023-05-01 10:46 | PC.NURSE ---
rad states will be down for u/s when finished with current pt.
--- NOTE | 2023-05-01 11:35 | PC.NURSE ---
pt return from u/s verbal report given to JIMMY SIDDIQUI from rad staff. waiting electronic lab technician back from dr. singleton
--- NOTE | 2023-05-01 11:44 | PC.NURSE ---
rounded on patient, no needs at this time. Call light within reach
--- NOTE | 2023-05-01 12:10 | PC.NURSE ---
DR MARSH IN SURGERY, SURGERY STAFF REPORTS IT MAY BE 2 HOURS BEFORE HE CAN SPEAK WITH ED MD
--- NOTE | 2023-05-01 12:19 | PC.NURSE ---
Dr Alcala speaking with hospitalist
--- NOTE | 2023-05-01 12:28 | PC.NURSE ---
covid swab obtained and sent to lab
[2023-05-01 12:48] LABS: Coronavirus 19, PCR Not Detected (NotDetected); Influenza A, PCR Not Detected (NotDetected); Influenza B, PCR Not Detected (NotDetected)
--- NOTE | 2023-05-01 13:07 | PC.NURSE ---
attempted to call report at this time
--- NOTE | 2023-05-01 13:21 | PC.NURSE ---
report called to [facility] on second floor, reports will send staff down to transport pt.
--- NOTE | 2023-05-01 14:11 | HMH.PHAINT1 ---
Pharmacy Intervention Comments: home medication list verified using list from outpatient pharmacy and pt interview
--- NOTE | 2023-05-01 15:40 | EXP.SURG.CON ---
History of Present Illness *Admission Date: 05/01/23 *Reason for visit:: Abdominal pain *History of present illness: Patient is a 57-year-old female from [facility]. She had presented to the emergency department today after she had developed acute onset overnight of sharp right upper quadrant pain. She had associated nausea but no vomiting. Denied chest pain. On examination in the emergency department she was noted to have tenderness in the right upper quadrant. Laboratory assessment revealed normal white blood cell count. Electrolytes unremarkable. Liver function tests only reveal slightly above normal AST. Lipase normal. She had a gallbladder ultrasound performed which revealed gallstone present with gallbladder wall thickening and some pericholecystic fluid. There were also findings of fatty liver. Common bile duct is normal at 4.7 mm. Her symptoms persisted despite medical management. She was admitted for inpatient management and surgical consultation. [facility] Disclaimer: The information contained in this section may have been updated after the patient was seen, as this information can be updated by other users. 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 [employer] Medications and Allergies Home Medications Medication Instructions Recorded Confirmed Type cevimeline 30 mg capsule (Evoxac) 1 cap PO TID dry mouth 12/05/22 05/01/23 History ibuprofen 800 mg tablet 800 mg PO TIDP PRN Pain 03/06/23 05/01/23 History albuterol sulfate 90 mcg/actuation 2 puff inhalation QID shortness of 05/01/23 05/01/23 History aerosol inhaler (Ventolin HFA) breath bupropion HCl 150 mg 24 hr tablet, 150 mg PO DAILY Depression 05/01/23 05/01/23 History extended release cetirizine 10 mg tablet 10 mg PO DAILY Allergy symptoms 05/01/23 05/01/23 History cholecalciferol (vitamin D3) 1,250 1,250 mcg PO WEEKLY Supplement 05/01/23 05/01/23 History mcg (50,000 unit) capsule cholecalciferol (vitamin D3) 50 50 mcg PO DAILY Supplement 05/01/23 05/01/23 History mcg (2,000 unit) capsule (Vitamin D3) colestipol 1 gram tablet 2 g PO BID Cholesterol 05/01/23 05/01/23 History fluticasone 100 mcg-salmeterol 50 1 inh inhalation BID COPD 05/01/23 05/01/23 History mcg/dose blistr powdr for inhalation (Advair Diskus) gabapentin enacarbil 300 mg 300 mg PO HS neuropathic pain 05/01/23 05/01/23 History tablet,extended release (Horizant ER) glimepiride 2 mg tablet 2 mg PO DAILY Diabetes 05/01/23 05/01/23 History hydrochlorothiazide 12.5 mg capsule 12.5 mg PO DAILY diuretic 05/01/23 05/01/23 History metformin 500 mg tablet 1,000 mg PO BID Diabetes 05/01/23 05/01/23 History omeprazole 40 mg capsule,delayed 40 mg PO DAILY Acid reflux 05/01/23 05/01/23 History release rosuvastatin 5 mg tablet 5 mg PO HS Cholesterol 05/01/23 05/01/23 History semaglutide 0.25 mg or 0.5 mg (2 0.25 mg SQ WEEKLY Diabetes 05/01/23 05/01/23 History mg/3 mL) subcutaneous pen injector (Ozempic) topiramate 25 mg sprinkle capsule 25 mg PO DAILY history of migraines 05/01/23 05/01/23 History ubrogepant 100 mg tablet (Ubrelvy) 100 mg PO NEEDED PRN migraines 05/01/23 05/01/23 History urea 40 % topical cream 1 applic topical BID Skin condition 05/01/23 05/01/23 History New Prescriptions to Start Prescriptions: Allergies Allergy/AdvReac Type Severity Reaction Status Date / Time Iodinated C
[2023-05-01 16:01] LABS: Microscopic, Urine URINE MICROSCOPIC (MICROSCOPIC)
[2023-05-01 16:05] LABS: Appearance,Urine CLOUDY (Clear); Bilirubin,Urine Negative (Negative); Blood, Urine Negative (Negative); Color,Urine YELLOW (Yellow); Glucose,Urine (UA) Negative (Negative); Ketones,Urine Negative (Negative); Leukocyte Esterase,Urine Negative (Negative); Nitrate,Urine Negative (Negative); PH,Urine 5.5 (5.0-8.5); Protein,Urine Negative (Negative); Specific Gravity, Urine 1.025 (1.005-1.030); Urobilinogen,Urine 0.2 EU/dl (0.2)
--- NOTE | 2023-05-01 16:13 | EXP.HP ---
History of Present Illness *Admission Date: 05/01/23 *Reason for visit:: RUQ abdominal pain *History of present illness: Patient is a 57-year-old female from [facility] with extensive PMHx including, but not limited to HTN, HLD, Diabetes Mellitus, Sjogren Dz, obesity, current smoker; who was presented to the emergency department today after she had developed acute onset overnight of sharp right upper quadrant pain radiating through to her back. She had associated nausea but no vomiting. Also complaining of chronic diarrhea. Denied chest pain. Initial examination at the emergency department she was noted to have tenderness in the right upper quadrant. Laboratory assessment revealed normal white blood cell count. Electrolytes unremarkable. Liver function tests only reveal slightly above normal AST. Lipase normal. She had a gallbladder ultrasound performed which revealed gallstone present with gallbladder wall thickening and some pericholecystic fluid. There were also findings of fatty liver. Common bile duct is normal at 4.7 mm. IV zoxyn was started and pain medication given. Upon this assessment pain was improved, located to RUQ, does not migrate to the back, still c/o nauseas and no vomit. patient afebrile. patient admitted for further management. Surgical service consulted. [facility] Disclaimer: The information contained in this section may have been updated after the patient was seen, as this information can be updated by other users. 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 [employer] Review of Systems Review of Systems Review of systems:: pertinent systems reviewed and negative unless documented below Constitutional Constitutional: Reports system reviewed and no additional complaints, except as documented Eyes Eyes: Reports as per HPI ENT Ears, Nose, Mouth, and Throat: Reports system reviewed and no additional complaints, except as documented *Cardiovascular Cardiovascular: Reports system reviewed and no additional complaints, except as documented *Respiratory Respiratory: Reports system reviewed and no additional complaints, except as documented *Gastrointestinal Gastrointestinal: Reports system reviewed and no additional complaints, except as documented, Reports abdominal pain and Reports nausea *Genitourinary Genitourinary: Reports system reviewed and no additional complaints, except as documented *Musculoskeletal Musculoskeletal: Reports system reviewed and no additional complaints, except as documented Integumentary/Breasts Skin/Breast: Reports system reviewed and no additional complaints, except as documented *Neurologic Neurologic: Reports system reviewed and no additional complaints, except as documented Psychiatric Psychiatric: Reports system reviewed and no additional complaints, except as documented Endocrine Endocrine: Reports system reviewed and no additional complaints, except as documented Hematologic/Lymphatic Hematologic/Lymphatic: Reports other Comments: recent left side lymphatic resection Allergic/Immunologic Allergic/Immunologic: Reports system reviewed and no additional complaints, except as documented Meds Home Medications and Allergies Home Medications Medication Instructions Recorded Confirmed Type cevimeline 30 mg capsule (Evoxac) 1 cap PO TID dry mouth 12/05/22 05/01/23 History ibuprofen 800 mg tablet 800 mg PO TIDP PRN Pain 03/06/23
[2023-05-01 16:29] LABS: Bacteria,Urine 1+ /lpf; RBC,Urine Occasional #/hpf (0-3); Squamous Epithelial Cell,Urine Occasional #/hpf (0-5); Uric Acid Crystals,Urine 2+ /lpf; WBC,Urine Occasional #/hpf (0-3)
[2023-05-01 17:22] LABS: POC Glucose,Bedside 133 (70-110)
[2023-05-01 20:34] LABS: POC Glucose,Bedside 192 (70-110)
[2023-05-02] VITALS (22 sets, daily range): BP systolic 116–166; BP diastolic 64–96; PULSE 54–85; RESP 14–21; TEMP 36.4–43; O2SAT 92–98; BMI 34.5
[2023-05-02 06:04] LABS: POC Glucose,Bedside 97 (70-110)
[2023-05-02 06:35] LABS: Eosinophils # 0.2 K/mm3 (0.0-0.4); Lymphocytes # 2.6 K/mm3 (0.7-4.5); Mean Corpuscular HGB Conc 32.4 g/dL (31.8-35.4); Mean Corpuscular Hemoglobin 31.7 pg (27.0-31.2); Monocytes # 0.4 K/mm3 (0.1-1.0); Platelet Count 176 K/mm3 (142-424)
[2023-05-02 06:37] LABS: Basophils % 0.5 % (0.1-2.0); Eosinophils % 2.8 % (0.1-12.0); Hematocrit 40.1 % (37.0-47.0); Lymphocytes % 42.2 % (10-50); Mean Platelet Volume 9.9 fl (7.4-10.4); Monocytes % 5.8 % (1.7-9.3); Neutrophils % 48.8 % (37.0-80.0); Red Blood Count 4.09 M/mm3 (4.20-5.40); Red Cell Distribution Width 13.2 % (11.5-17.5); White Blood Count 6.2 K/mm3 (4.8-10.8)
[2023-05-02 06:42] LABS: Chloride 108 mmol/L (98-107)
[2023-05-02 06:43] LABS: Potassium 3.7 mmoL/L (3.5-5.1); Sodium 141 mmol/L (136-145)
[2023-05-02 06:45] LABS: Alanine Aminotransferase 37 U/L (12-78); Albumin Level 3.6 g/dl (3.5-5.0); Albumin/Globulin Ratio 1.2 (1.1-1.8); Alkaline Phosphatase 61 U/L (38-126); Anion Gap 13.7 mEq/L (5-15); Aspartate Amino Transferase 45 U/L (14-36); Bilirubin,Total 0.2 mg/dl (0.2-1.3); Blood Urea Nitrogen 10 mg/dl (7-17); Carbon Dioxide 23 mmol/L (22.0-30.0); Creatinine Clearance Estimated 98 mL/min (50-200); Estimated Glomerular Filt Rate 57 ml/min (>60); GFR (African American) 69 ML/MIN (>60); Total Protein,Serum 6.6 g/dl (6.3-8.2)
[2023-05-02 06:46] LABS: Chol/HDL Ratio 4.5 (1-3.5); Cholesterol 122 mg/dl (140-200); Glucose 87 mg/dl (74-100); HDL Cholesterol 27 mg/dl (40-60); Triglycerides 231 mg/dl (30-150); VLDL Cholesterol 46 mg/dL (0-40)
[2023-05-02 06:57] LABS: Direct LDL Cholesterol 54.82 mg/dL (100-129)
--- NOTE | 2023-05-02 08:34 | EXP.SURG.PN ---
Subjective Narrative: Pain has subsided somewhat. Still present. Laboratory studies within reasonable limits. Exam Data for Last 24 hours Vital signs and Labs for Last 24 Hours: Temp Pulse Resp BP Pulse Ox 98.4 F 54 L 18 124/67 96 05/02/23 08:00 05/02/23 08:00 05/02/23 08:00 05/02/23 08:00 05/02/23 08:00 Laboratory Results - last 24 hr 05/01/23 09:56: WBC 8.3, RBC 4.67, Hgb 15.1, Hct 45.9, MCV 98.1, MCH 32.2 H, MCHC 32.9, RDW 13.4, Plt Count 207, MPV 9.6, Neut % (Auto) 57.2, Lymph % (Auto) 35.4, [place] % (Auto) 5.2, Eos % (Auto) 1.6, Baso % (Auto) 0.6, Neut # (Auto) 4.7, Lymph # (Auto) 2.9, [place] # (Auto) 0.4, Eos # (Auto) 0.1, Baso # (Auto) 0.1 05/01/23 09:56: Sodium 140, Potassium 4.1, Chloride 103, Carbon Dioxide 24, Anion Gap 17.1 H, BUN 14, Creatinine 0.90, Estimated Creat Clear 99, Estimated GFR 65, Est GFR ( Amer) 78, Glucose 117 H, Calcium 8.9, Total Bilirubin 0.1 L, AST 41 H, ALT 38, Alkaline Phosphatase 69, Total Protein 7.8, Albumin 4.3, Globulin 3.5 H, Albumin/Globulin Ratio 1.2, Lipase 89 05/01/23 09:56: Hemoglobin A1c 6.0 05/01/23 12:25: SARS-CoV-2 (PCR) Not detected, Influenza A Untype (PCR) Not detected, Influenza Type B (PCR) Not detected 05/01/23 15:00: Urine Color Yellow, Urine Appearance Cloudy, Urine pH 5.5, Ur Specific [place] 1.025, Urine Protein Negative, Urine Glucose (UA) Negative, Urine Ketones Negative, Urine Blood Negative, Urine Nitrate Negative, Urine Bilirubin Negative, Urine Urobilinogen 0.2, Ur Leukocyte Esterase Negative, Urine RBC Occasional, Urine WBC Occasional, Ur Squamous Epith Cells Occasional, Uric Acid Crystals 2+, Urine Bacteria 1+ 05/01/23 17:14: POC Glucose 133 H 05/01/23 20:22: POC Glucose 192 H 05/02/23 05:35: WBC 6.2 D, RBC 4.09 L, Hgb 13.0 D, Hct 40.1, MCV 98.0, MCH 31.7 H, MCHC 32.4, RDW 13.2, Plt Count 176, MPV 9.9, Neut % (Auto) 48.8, Lymph % (Auto) 42.2, [place] % (Auto) 5.8, Eos % (Auto) 2.8, Baso % (Auto) 0.5, Neut # (Auto) 3.0, Lymph # (Auto) 2.6, [place] # (Auto) 0.4, Eos # (Auto) 0.2, Baso # (Auto) 0.0 05/02/23 05:35: Sodium 141, Potassium 3.7, Chloride 108 H, Carbon Dioxide 23, Anion Gap 13.7, BUN 10 D, Creatinine 1.00, Estimated Creat Clear 98, Estimated GFR 57 L, Est GFR ( Amer) 69, Glucose 87 D, Calcium 8.0 L, Total Bilirubin 0.2, AST 45 H, ALT 37, Alkaline Phosphatase 61, Total Protein 6.6, Albumin 3.6 D, Globulin 3.0, Albumin/Globulin Ratio 1.2, Triglycerides 231 H, Cholesterol 122 L, LDL Cholesterol Direct 54.82 L, VLDL Cholesterol 46 H, HDL Cholesterol 27 L, Cholesterol/HDL Ratio 4.5 H 05/02/23 05:45: POC Glucose 97 I & O for Last 24 hours: Intake & Output 04/29/23 04/30/23 05/01/23 05/02/23 11:59 11:59 11:59 11:59 Intake Total 620 / 620 Output Total 1100 / 1100 Balance -480 / -480 Weight 200 lb 220 lb 2 oz *Routine Abdominal Exam Comments: Some tenderness in right upper quadrant. Progress Note: A&P Assessment and plan (1) Acute calculous cholecystitis: Status: Acute Assessment and plan: Laparoscopic possibly open cholecystectomy today. I explained to her the nature and details of the proposed procedure along with associated risks and expected outcome. She understands and agrees to proceed (2) Increased liver enzymes: Status: Acute (3) Diarrhea: Status: Acute (4) Sjogrens syndrome: Problem details: Currently on pilocarpine. Active follow up at -Rheumatology Status: Chronic (5) Tobacco abuse: Status: Acute (6) High blood pressure: Status: Acute (7) Diabetes mellitus: Problem details: A1CHb has increased up to 6.8 Status: Chronic (8) Obesity (BMI 30.0-34.9): Status: Acute
[2023-05-02 11:13] LABS: POC Glucose,Bedside 116 (70-110)
--- NOTE | 2023-05-02 12:27 | P.PN_ITS ---
[facility] Disclaimer: The information contained in this section may have been updated after the patient was seen, as this information can be updated by other users. 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 [employer] Anesthesia Checklist Patient Identification Patient Identification: Arm Band Structural Data Admitted From: Home Planned Operative Procedure/s: Laparoscopic Cholecystectomy Consent for Planned Operative Procedure(s) Verified: Yes Verified Documents: Surgical Consent and History and Physical NPO Status Verified Time NPO: 00:00 Additional verifications Anesthesia Reactions: No Airway Assessment C-Spine Mobility Assessed: Yes TMJ Mobility Assessed: Yes Dentition: Edentulous Neurological Assessment Level of Consciousness: Awake and Alert Anesthesia Plan Anesthesia Risk discussed: Yes Anesthesia Plan: Verified ASA Class: II Anesthesia Type: General
--- NOTE | 2023-05-02 13:28 | P.OP_ITS ---
Date of procedure: 05/02/23 Pre-op Diagnosis:: Acute cholecystitis Post-op Diagnosis:: Same Procedure performed:: Laparoscopic cholecystectomy Surgeon:: Kalyan Velásquez MD LIMITED RADIOLOGY TECHNICIAN:: Paulino Lyman Anesthesia: JOSETTE Estimated blood loss (mL): 25 Clinical Note:: Patient is a 57-year-old female. She had presented to the emergency department on 05/01/2023 with acute onset of sharp right upper quadrant pain with associated nausea. She was found to have significant tenderness in the right upper quadrant. Gallbladder ultrasound revealed gallstone present with gallbladder wall thickening and some pericholecystic fluid. Symptoms persisted. She was admitted for inpatient management for acute cholecystitis and surgical consultation was obtained. Plan was made for cholecystectomy. Operative findings:: She had some appreciable steatosis of the liver. Gallbladder was distended and much of the gallbladder was obscured with omental adhesions. There was a moderate stone tightly impacted in the neck of the gallbladder. There was some edema and pericholecystic fluid. Operative note:: Patient was taken to the operating room. She was given preoperative intravenous antibiotics. In the operating room she was placed in a supine position. General anesthesia was induced via endotracheal tube. Abdomen was prepped and draped in the standard surgical fashion. Subumbilical skin incision was made and while performing abdominal wall lift Veress needle was inserted. CO2 pneumoperitoneum was achieved to 15 mmHg. 11 mm optical trocar was inserted at the umbilicus. Intraperitoneal contents were visualized. She was positioned in reverse Trendelenburg and left side down. A couple 5 mm trocars were inserted in the right upper abdomen. 10 mm trocar was inserted in the epigastrium. She had some steatosis of the liver. Gallbladder was grasped retracted anteriorly and superiorly over the dome of the liver. There were omental adhesions to the gallbladder. This taken down using blunt dissection. Gallbladder was somewhat distended and thickened. There was noted to be a moderate stone densely tightly impacted in the neck of the gallbladder. Prolonged careful dissection was carried out ultimately isolating the cystic duct. Cystic artery was identified as well. Once the cystic duct was clearly identified and the critical view of safety it was isolated, multiply clipped, and sharply divided. Cystic artery was carefully coagulated with HOMA ultrasonic robotic norris and divided. Gallbladder was dissected free from the liver in a retrograde fashion using HOMA ultrasonic harmonic norris. Gallbladder was placed within an Endo Catch retrieval device and removed from the peritoneal cavity via the umbilical trocar site which required some extension of the fascial incision for delivery. Gallbladder fossa was inspected for hemostasis which was assured. Limited irrigation was performed. Trocars were then removed as CO2 pneumoperitoneum was evacuated. Fascia at the umbilicus was closed with several interrupted 0 Vicryl sutures. Local anesthetic was infiltrated. Skin incisions were closed with 4-0 Monocryl in a subcuticular fashion. Dermabond and dressings were applied. Condition: stable Disposition: PACU Complications:: None immediately apparent
--- NOTE | 2023-05-02 13:39 | P.PNANES_ITS ---
[facility] Anesthesia Record Part I Anesthesia Record I Intake, IV Amount: 1,200 Estimated blood loss (mL): 10 Urine output (mL): 0 Blood Products used (#): none Blood Pressure: 140/85 SaO2: 92 Pulse Rate: 85 Respiratory Rate: 16 Temperature: 97.5 F Patient is:: Drowsy and Stable Stable to PACU at:: 13:35
[2023-05-02 13:46] LABS: POC Glucose,Bedside 116 (70-110)
--- NOTE | 2023-05-02 14:21 | SUR.PHASEI ---
1355 - Attempted to call report to Leslie Alvarado RN at this time. States she is unable to tacke report at this time. Will call back when available.
--- NOTE | 2023-05-02 14:27 | SUR.PHASEI ---
1355 - Attempted to call report to Kimberly at this time, unable to take reports. States she will call back when she is available 1425 - Detailed rport given to MARIBEL Stover at this time via phone.
--- NOTE | 2023-05-02 16:01 | EXP.ACUTE.PN ---
Subjective *Date: 05/02/23 *Time: 16:01 Interval history: Patient n.p.o. this morning. Going for surgery today. Continues to have right upper quadrant pain. No fever overnight. Medical Exam Vital signs and Labs for Last 24 Hours: Vital Signs Temp Pulse Pulse Resp BP BP Pulse Ox 05/02/23 14:15 63 14 166/93 H 97 05/02/23 14:05 71 16 142/76 H 97 05/02/23 13:55 69 16 139/90 97 05/02/23 13:45 70 17 144/73 H 94 L 05/02/23 13:35 97.5 F L 77 16 144/65 H 93 L 05/02/23 08:00 54 L 96 05/02/23 08:00 98.4 F 54 L 18 124/67 96 05/02/23 04:00 97.6 F 63 20 116/64 95 05/01/23 20:00 98.1 F 65 18 136/98 H 96 05/02/23 13:40 97.5 F L 85 16 140/85 Intake and Output 05/02/23 05/02/23 05/02/23 07:59 15:59 23:59 Intake Total 1200 / 1200 Output Total 900 / 900 0 / 900 Balance -900 / 300 1200 / 300 Intake: Intake, Total IV Amount 1200 / 1200 Output: Output, Urine Amount 900 / 900 0 / 900 Other: Number of Unmeasured Voids 1 1 Weight 99.847 kg Patient Weight 05/02/23 23:59 Weight 99.847 kg Laboratory Results - last 24 hr 05/01/23 15:00: Urine Color Yellow, Urine Appearance Cloudy, Urine pH 5.5, Ur Specific [place] 1.025, Urine Protein Negative, Urine Glucose (UA) Negative, Urine Ketones Negative, Urine Blood Negative, Urine Nitrate Negative, Urine Bilirubin Negative, Urine Urobilinogen 0.2, Ur Leukocyte Esterase Negative, Urine RBC Occasional, Urine WBC Occasional, Ur Squamous Epith Cells Occasional, Uric Acid Crystals 2+, Urine Bacteria 1+ 05/01/23 17:14: POC Glucose 133 H 05/01/23 20:22: POC Glucose 192 H 05/02/23 05:35: WBC 6.2 D, RBC 4.09 L, Hgb 13.0 D, Hct 40.1, MCV 98.0, MCH 31.7 H, MCHC 32.4, RDW 13.2, Plt Count 176, MPV 9.9, Neut % (Auto) 48.8, Lymph % (Auto) 42.2, [place] % (Auto) 5.8, Eos % (Auto) 2.8, Baso % (Auto) 0.5, Neut # (Auto) 3.0, Lymph # (Auto) 2.6, [place] # (Auto) 0.4, Eos # (Auto) 0.2, Baso # (Auto) 0.0 05/02/23 05:35: Sodium 141, Potassium 3.7, Chloride 108 H, Carbon Dioxide 23, Anion Gap 13.7, BUN 10 D, Creatinine 1.00, Estimated Creat Clear 98, Estimated GFR 57 L, Est GFR ( Amer) 69, Glucose 87 D, Calcium 8.0 L, Total Bilirubin 0.2, AST 45 H, ALT 37, Alkaline Phosphatase 61, Total Protein 6.6, Albumin 3.6 D, Globulin 3.0, Albumin/Globulin Ratio 1.2, Triglycerides 231 H, Cholesterol 122 L, LDL Cholesterol Direct 54.82 L, VLDL Cholesterol 46 H, HDL Cholesterol 27 L, Cholesterol/HDL Ratio 4.5 H 05/02/23 05:45: POC Glucose 97 05/02/23 11:03: POC Glucose 116 H 05/02/23 13:39: POC Glucose 116 H I & O for Labs for Last 24 Hours: Intake & Output 04/29/23 04/30/23 05/01/23 05/02/23 23:59 23:59 23:59 23:59 Intake Total 620 / 620 1200 / 1200 Output Total 200 / 500 900 / 900 Balance 420 / 120 300 / 300 Weight 90.718 kg 99.847 kg Constitutional: Present no acute distress and obese Head: Present atraumatic and normocephalic ENT: Present normal exam Neck: Present normal inspection Respiratory: Present normal respiratory effort; Absent rhonchi, wheezes or crackles Cardiac: Present Reg Rate and Rhythm GI: Present soft, tenderness (RUQ, no rebound) and normal bowel sounds; Absent distention Extremities: Present normal inspection and full ROM Skin: Present intact; Absent erythema Neuro: Present Grossly Intact and moves all extremities Assessment and Plan *Assessment and plan (1) Acute calculous cholecystitis: Status: Acute Category: Medical Code(s): K80.00 - Calculus of gallbladder with acute cholecystitis without obstruction (2) Increased liver enzymes: Status: Acute Category: Medical Code(s): R74.8 - Abnormal levels of other serum enzymes (3) Diarrhea: Status: Acute Qualifiers: Diarrhea type: unspecified type Qualified Code(s): R19.7 - Diarrhea, unspecified Category: Medical Code(s): R19.7 - Diarrhea, unspecified (4) Sjogrens s
[2023-05-02 17:53] LABS: POC Glucose,Bedside 163 (70-110)
[2023-05-02 21:01] LABS: POC Glucose,Bedside 187 (70-110)
[2023-05-03 04:00] VITALS: BP 93/51; PULSE 87; RESP 16; TEMP 36.8; O2SAT 96; BMI 34.6
--- NOTE | 2023-05-03 05:13 | PC.NURSE ---
Pt has not voiced any c/o to staff. Has ambulated hallway 2x this shift, tolerated well. DSGs to abdomen CDI. Call light within reach.
[2023-05-03 05:55] LABS: POC Glucose,Bedside 159 (70-110)
[2023-05-03 06:19] LABS: Basophils % 0.3 % (0.1-2.0); Eosinophils # 0.1 K/mm3 (0.0-0.4); Eosinophils % 0.7 % (0.1-12.0); Hematocrit 38.2 % (37.0-47.0); Hemoglobin 12.3 g/dL (12.2-16.2); Lymphocytes # 2.5 K/mm3 (0.7-4.5); Lymphocytes % 28.7 % (10-50); Mean Corpuscular HGB Conc 32.3 g/dL (31.8-35.4); Mean Corpuscular Hemoglobin 31.4 pg (27.0-31.2); Mean Corpuscular Volume 97.1 fl (81-99); Mean Platelet Volume 9.6 fl (7.4-10.4); Monocytes # 0.5 K/mm3 (0.1-1.0); Monocytes % 5.4 % (1.7-9.3); Neutrophils # 5.6 K/mm3 (1.8-7.8); Neutrophils % 64.8 % (37.0-80.0); Platelet Count 211 K/mm3 (142-424); Red Blood Count 3.93 M/mm3 (4.20-5.40); Red Cell Distribution Width 13.4 % (11.5-17.5); White Blood Count 8.6 K/mm3 (4.8-10.8)
[2023-05-03 06:28] LABS: Alanine Aminotransferase 48 U/L (12-78); Albumin Level 3.9 g/dl (3.5-5.0); Albumin/Globulin Ratio 1.3 (1.1-1.8); Alkaline Phosphatase 63 U/L (38-126); Anion Gap 15.4 mEq/L (5-15); Aspartate Amino Transferase 47 U/L (14-36); Bilirubin,Total 0.3 mg/dl (0.2-1.3); Blood Urea Nitrogen 9 mg/dl (7-17); Calcium 8.2 mg/dl (8.4-10.2); Carbon Dioxide 24 mmol/L (22.0-30.0); Chloride 104 mmol/L (98-107); Creatinine Clearance Estimated 109 mL/min (50-200); Estimated Glomerular Filt Rate 65 ml/min (>60); GFR (African American) 78 ML/MIN (>60); Glucose 150 mg/dl (74-100); Potassium 3.4 mmoL/L (3.5-5.1); Sodium 140 mmol/L (136-145); Total Protein,Serum 6.9 g/dl (6.3-8.2)
--- NOTE | 2023-05-03 07:21 | EXP.ANES.II ---
[facility] Anesthesia Record Part II Anesthesia Record Part II Discharge Time: 14:15 Destination: Medical Surgical Department PACU nurse assessment reviewed?: Yes Patient Condition:: Good Anesthesia Complications:: None Swallowing reflex intact?: Yes Cyanosis?: No Blood Pressure: 166/93 Pulse Rate: 63 Temperature: 97.5 F Mental Status: Alert & Oriented Pain level:: 0 Nausea and/or vomitting:: None Intake, IV Amount: 0
[2023-05-03 07:22] VITALS: BP 166/93; PULSE 63; TEMP 36.4
--- NOTE | 2023-05-03 07:26 | EXP.DC.SUM ---
General Admission date:: 05/01/23 Discharge date: 05/03/23 HPI HPI HPI: Patient is a 57-year-old female from [facility] with extensive PMHx including, but not limited to HTN, HLD, Diabetes Mellitus, Sjogren Dz, obesity, current smoker; who was presented to the emergency department today after she had developed acute onset overnight of sharp right upper quadrant pain radiating through to her back.? She had associated nausea but no vomiting.? Also complaining of chronic diarrhea. Denied chest pain. Initial examination at the emergency department she was noted to have tenderness in the right upper quadrant.? Laboratory assessment revealed normal white blood cell count.? Electrolytes unremarkable.? Liver function tests only reveal slightly above normal AST.? Lipase normal.? She had a gallbladder ultrasound performed which revealed gallstone present with gallbladder wall thickening and some pericholecystic fluid.? There were also findings of fatty liver.? Common bile duct is normal at 4.7 mm. IV zoxyn was started and pain medication given. Upon this assessment pain was improved, located to RUQ, does not migrate to the back, still c/o nauseas and no vomit. patient afebrile. patient admitted for further management. Surgical service consulted.? Hospital Course Hospital Course Hospital Course: This is a 57 yo female presented with acute onset abdominal pain since midnight. Labs were reviewed, they are overall negative, elevated AST enzime,? Abdominal US personally reviewed and discussed with ER physician. Concerning for acute non-obstructing calculus cholecystitis,? fatty liver.? Taken for surgery on 05/02. Gallbladder removed. Tolerated procedure well. Given appearance of gallbladder, observed overnight to continue antibiotics and monitor for advancement in diet. Tolerating p.o. intake. Ambulating independently. Meeting criteria for discharge home. Problems addressed as follows: Acute calculus cholecystitis Transaminitis -Found to have elevated liver enzymes and image findings of cholecystitis on admission. Surgery was consulted. Patient initially started on Zosyn for empiric coverage. Taken for surgery on 05/02. Did well with surgery. White cell count remained normal during hospitalization. Continued antibiotics while admitted but did not discharge on any antibiotics given no indication for coverage. Tolerated advancement in diet. Pain control sent at discharge by surgery. We will follow-up in 1 to 2 weeks for evaluation with surgery. Stable for discharge home. Diabetes -Continue metformin 1000 mg p.o. twice daily, sliding scale insulin with fingersticks ACHS during hospitalization. Continue omeprazole for GERD Continue gabapentin nightly for neuropathy Nicotine replacement as needed Exam Data for Last 24 hours Vital signs and Labs for Last 24 Hours: Temp Pulse Resp BP Pulse Ox 98.3 F 87 16 93/51 L 96 05/03/23 04:00 05/03/23 04:00 05/03/23 04:00 05/03/23 04:00 05/03/23 04:00 Laboratory Results - last 24 hr 05/02/23 11:03: POC Glucose 116 H 05/02/23 13:39: POC Glucose 116 H 05/02/23 17:41: POC Glucose 163 H 05/02/23 20:49: POC Glucose 187 H 05/03/23 05:46: POC Glucose 159 H 05/03/23 06:00: WBC 8.6 D, RBC 3.93 L, Hgb 12.3, Hct 38.2, MCV 97.1, MCH 31.4 H, MCHC 32.3, RDW 13.4, Plt Count 211, MPV 9.6, Neut % (Auto) 64.8, Lymph % (Auto) 28.7, [place] % (Auto) 5.4, Eos % (Auto) 0.7, Baso % (Auto) 0.3, Neut # (Auto) 5.6, Lymph # (Auto) 2.5, [place] # (Auto) 0.5, Eos # (Auto) 0.1, Baso # (Auto) 0.0 05/03/23 06:00: Sodium 140, Potassium 3.4 L, Chloride 104, Carbon Dioxide 24, Anion Gap 15.4 H, BUN 9, Creatinine 0.90, Estimated Creat Clear 109, Estimated GFR 65, Est GFR ( Amer) 78, Glucose 150 H, Calcium 8.2 L, Magnesium 2.0, Total Bilirubin 0.3, AST 47 H, ALT 48 D, Alkaline Phosphatase 63, Total Protein 6.9, Albumin 3.9, Globulin 3.0, Albumin/Globulin Ratio 1.3 I & O for Last 24 hours: Intake & Output 04/30
[2023-05-03 08:00] VITALS: BP 132/84; PULSE 99; RESP 19; TEMP 36.6; O2SAT 96
--- NOTE | 2023-05-03 08:59 | P.PN_ITS ---
Subjective Narrative: Patient feels well other than soreness postsurgically. Tolerating diet. Exam Data for Last 24 hours Vital signs and Labs for Last 24 Hours: Temp Pulse Resp BP Pulse Ox 97.9 F 99 H 19 132/84 96 05/03/23 08:00 05/03/23 08:00 05/03/23 08:00 05/03/23 08:00 05/03/23 08:00 Laboratory Results - last 24 hr 05/02/23 11:03: POC Glucose 116 H 05/02/23 13:39: POC Glucose 116 H 05/02/23 17:41: POC Glucose 163 H 05/02/23 20:49: POC Glucose 187 H 05/03/23 05:46: POC Glucose 159 H 05/03/23 06:00: WBC 8.6 D, RBC 3.93 L, Hgb 12.3, Hct 38.2, MCV 97.1, MCH 31.4 H , MCHC 32.3, RDW 13.4, Plt Count 211, MPV 9.6, Neut % (Auto) 64.8, Lymph % (Auto) 28.7, [place] % (Auto) 5.4, Eos % (Auto) 0.7, Baso % (Auto) 0.3, Neut # (Auto) 5.6, Lymph # (Auto) 2.5, [place] # (Auto) 0.5, Eos # (Auto) 0.1, Baso # (Auto) 0.0 05/03/23 06:00: Sodium 140, Potassium 3.4 L, Chloride 104, Carbon Dioxide 24, Anion Gap 15.4 H, BUN 9, Creatinine 0.90, Estimated Creat Clear 109, Estimated GFR 65, Est GFR ( Amer) 78, Glucose 150 H, Calcium 8.2 L, Magnesium 2.0, Total Bilirubin 0.3, AST 47 H, ALT 48 D, Alkaline Phosphatase 63, Total Protein 6.9, Albumin 3.9, Globulin 3.0, Albumin/Globulin Ratio 1.3 I & O for Last 24 hours: Intake & Output 04/30/23 05/01/23 05/02/23 05/03/23 11:59 11:59 11:59 11:59 Intake Total 620 / 620 1605 / 1605 Output Total 1100 / 1100 1950 / 1950 Balance -480 / -480 -345 / -345 Weight 200 lb 220 lb 2 oz 220 lb 9.6 oz *Routine Abdominal Exam Abdominal: Present soft Comments: Dressings dry Progress Note: A&P Assessment and plan (1) Acute calculous cholecystitis: Status: Acute Assessment and plan: Discharge home today (2) Increased liver enzymes: Status: Acute (3) Diarrhea: Status: Acute (4) Sjogrens syndrome: Problem details: Currently on pilocarpine. Active follow up at -Rheumatology Status: Chronic (5) Tobacco abuse: Status: Acute (6) High blood pressure: Status: Acute (7) Diabetes mellitus: Problem details: A1CHb has increased up to 6.8 Status: Chronic (8) Obesity (BMI 30.0-34.9): Status: Acute
--- NOTE | 2023-05-03 10:46 | HMH.PHAINT1 ---
Pharmacy Intervention Comments: DISCHARGE MEDICATION COUNSELING PROVIDED. DISCUSSED THE NEW [employer] PRESCRIPTION. TAKE ONE TO TWO TABLETS EVERY 6 HOURS NEEDED FOR MODERATE TO SEVERE PAIN. IF YOU ARE NOT IN PAIN YOU DO NOT HAVE TO TAKE. RECOMMENDED TAKING WITH FOOD DUE TO POSSIBLE GI UPSET. MAY MAKE YOU SLEEPY. CONSTIPATION POSSIBLE SO DRINK PLENTY OF FLUIDS, CONSIDER INCREASING FIBER INTAKE, AND CAN USE OTC STOOL SOFTENER/LAXATIVE IF CONSTIPATION OCCURS. PATIENT VERBALIZED NO QUESTIONS AT THIS TIME.
--- NOTE | 2023-05-04 14:56 | CARE MANAGER ---
Contacted patient related to hospital discharge. She states she is doing well. She denies any questions or concerns. 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 MARIBEL Mathews
== END 2023-05-03 11:27 | disposition home or self-care (01) ==
LOC: ER 12:33 → 2ND 21:39
PROVIDERS: Nurse Practitioner Family; Surgery; Admitting Provider Internal Medicine Adolescent Medicine; Emergency Provider Emergency Medicine; PCP Nurse Practitioner Family; Visit Provider Internal Medicine Adolescent Medicine
PROC: 0FT44ZZ Resection of Gallbladder, Percutaneous Endoscopic Approach (ICD-10-PCS; CPT 47562; principal; 2023-05-02 14:00)
DX: K80.00 Calculus of gallbladder with acute cholecystitis without obstruction (principal); I10 Essential (primary) hypertension; E78.5 Hyperlipidemia, unspecified; E11.9 Type 2 diabetes mellitus without complications; M35.00 Sjogren syndrome, unspecified; Z79.51 Long term (current) use of inhaled steroids; Z79.899 Other long term (current) drug therapy; G43.909 Migraine, unspecified, not intractable, without status migrainosus; F17.210 Nicotine dependence, cigarettes, uncomplicated; Z79.84 Long term (current) use of oral hypoglycemic drugs
CPT/HCPCS: 47562; 36415; 71045; 76705; 80053; 80061; 81001; 82962; 83036; 83690; 83735; 85025; 87636; 88304; 93005; 94640; 99285; C9803; G0378; J2405; J2543; U0003; U0005

== ENCOUNTER → 2023-07-26 08:25 | Outpatient (CLI) | payer OTHER, SELFPAY ==
[2023-07-26 09:00] LABS: Basophils % 0.4 % (0.1-2.0); Eosinophils # 0.1 K/mm3 (0.0-0.4); Eosinophils % 0.6 % (0.1-12.0); Hemoglobin 15.2 g/dL (12.2-16.2); Lymphocytes # 1.9 K/mm3 (0.7-4.5); Lymphocytes % 18.7 % (10-50); Mean Corpuscular Volume 96.8 fl (81-99); Monocytes # 0.2 K/mm3 (0.1-1.0); Monocytes % 2.3 % (1.7-9.3); Neutrophils # 7.8 K/mm3 (1.8-7.8); Platelet Count 222 K/mm3 (142-424); Red Blood Count 4.75 M/mm3 (4.20-5.40); Red Cell Distribution Width 13.3 % (11.5-17.5)
[2023-07-26 09:57] LABS: Alanine Aminotransferase 37 U/L (12-78); Albumin Level 4.5 g/dl (3.5-5.0); Albumin/Globulin Ratio 1.2 (1.1-1.8); Alkaline Phosphatase 68 U/L (38-126); Anion Gap 19.1 mEq/L (5-15); Aspartate Amino Transferase 36 U/L (14-36); Bilirubin,Total 0.3 mg/dl (0.2-1.3); Blood Urea Nitrogen 14 mg/dl (7-17); Calcium 9.6 mg/dl (8.4-10.2); Carbon Dioxide 23 mmol/L (22.0-30.0); Chloride 103 mmol/L (98-107); Estimated Glomerular Filt Rate 64 ml/min (>60); GFR (African American) 78 ML/MIN (>60); Globulin 3.8 g/dL (1.3-3.2); Glucose 182 mg/dl (74-100); Potassium 4.1 mmoL/L (3.5-5.1); Sodium 141 mmol/L (136-145); Total Protein,Serum 8.3 g/dl (6.3-8.2)
[2023-07-30 12:50] LABS: Lyme B. burgdorferi PCR Blood Negative (Negative)
== END ==
PROVIDERS: PCP Nurse Practitioner Family; Visit Provider Student in an Organized Health Care Education/Training Program
DX: S30.861A Insect bite (nonvenomous) of abdominal wall, initial encounter (principal); W57.XXXA Bitten or stung by nonvenomous insect and other nonvenomous arthropods, initial encounter
CPT/HCPCS: 36415; 80053; 85025; 87476

== ENCOUNTER → 2023-10-16 09:46 | Outpatient (CLI) | payer OTHER, SELFPAY ==
[2023-10-16 18:14] LABS: Adenovirus,PCR Not Detected (NotDetected); Coronavirus 229E Not Detected (NotDetected); Coronavirus NL63 Not Detected (NotDetected); Coronavirus OC43 Not Detected (NotDetected); Coronovirus HKU1,PCR Not Detected (NotDetected); Human Metapneumovirus Not Detected (NotDetected); Influenza A, PCR Not Detected (NotDetected); Influenza AH1, 2009 Not Detected (NotDetected); Influenza AH1, PCR Not Detected (NotDetected); Influenza AH3,PCR Not Detected (NotDetected); Influenza B, PCR Not Detected (NotDetected); Parainfluenza 1, PCR Not Detected (NotDetected); Parainfluenza 2, PCR Not Detected (NotDetected); Parainfluenza 3, PCR Not Detected (NotDetected); Parainfluenza 4, PCR Not Detected (NotDetected); Respiratory Syncytial Virus Not Detected (NotDetected); Rhinovirus/Enterovirus Not Detected (NotDetected)
[2023-10-17 00:08] LABS: Coronavirus 19, PCR Detected (NotDetected)
== END ==
LOC: LAB.DROPOF 10-17 09:46
PROVIDERS: PCP Nurse Practitioner Family; Visit Provider Nurse Practitioner Family
DX: J02.9 Acute pharyngitis, unspecified (principal); U07.1 COVID-19
CPT/HCPCS: 87070; 87581; 87632; 87635; 87798

== ENCOUNTER 2024-05-15 10:34 | Outpatient (CLI) | payer OTHER, SELFPAY | END 2024-05-15 23:59 | disposition home or self-care (01) | LOC: LAB.DROPOF 05-16 10:34 | PROVIDERS: PCP Family Medicine; Visit Provider Family Medicine | DX: N76.0 Acute vaginitis (principal); B96.89 Other specified bacterial agents as the cause of diseases classified elsewhere; N39.0 Urinary tract infection, site not specified; B96.1 Klebsiella pneumoniae [K. pneumoniae] as the cause of diseases classified elsewhere | CPT/HCPCS: 87086; 87088; 87186; 87210 ==

== ENCOUNTER 2024-06-28 13:57 | Outpatient (CLI) | payer OTHER, SELFPAY ==
[2024-06-28 18:32] LABS: Basophils # 0.1 K/mm3 (0-0.2); Eosinophils # 0.3 K/mm3 (0.0-0.4); Eosinophils % 3.4 % (0.1-12.0); Hematocrit 43.3 % (37.0-47.0); Hemoglobin 14.3 g/dL (12.2-16.2); Lymphocytes # 2.8 K/mm3 (0.7-4.5); Lymphocytes % 36.7 % (10-50); Mean Corpuscular HGB Conc 33.1 g/dL (31.8-35.4); Mean Corpuscular Hemoglobin 32.6 pg (27.0-31.2); Mean Corpuscular Volume 98.4 fl (81-99); Mean Platelet Volume 10.9 fl (7.4-10.4); Monocytes # 0.5 K/mm3 (0.1-1.0); Neutrophils # 4.1 K/mm3 (1.8-7.8); Neutrophils % 52.9 % (37.0-80.0); Platelet Count 211 K/mm3 (142-424); Red Cell Distribution Width 14.1 % (11.5-17.5); White Blood Count 7.7 K/mm3 (4.8-10.8)
[2024-06-28 20:45] LABS: Alanine Aminotransferase 38 U/L (12-78); Albumin Level 4.2 g/dl (3.5-5.0); Albumin/Globulin Ratio 1.3 (1.1-1.8); Alkaline Phosphatase 67 U/L (38-126); Anion Gap 13.9 mEq/L (5-15); Aspartate Amino Transferase 41 U/L (14-36); Bilirubin,Total 0.4 mg/dl (0.2-1.3); Blood Urea Nitrogen 15 mg/dl (7-17); Calcium 9.8 mg/dl (8.4-10.2); Carbon Dioxide 24 mmol/L (22.0-30.0); Chloride 104 mmol/L (98-107); Chol/HDL Ratio 3.8 (1-3.5); Cholesterol 113 mg/dl (140-200); Estimated Glomerular Filt Rate 57 ml/min (>60); GFR (African American) 69 ML/MIN (>60); Globulin 3.3 g/dL (1.3-3.2); Glucose 115 mg/dl (74-100); HDL Cholesterol 30 mg/dl (40-60); Potassium 3.9 mmoL/L (3.5-5.1); Sodium 138 mmol/L (136-145); Total Protein,Serum 7.5 g/dl (6.3-8.2); Triglycerides 275 mg/dl (30-150); VLDL Cholesterol 55 mg/dL (0-40)
[2024-06-28 20:56] LABS: Direct LDL Cholesterol 48.06 mg/dL (100-129)
[2024-06-28 21:04] LABS: 25-OH Vitamin D, Total 99.9 ng/mL (30-100)
[2024-06-28 21:16] LABS: Thyroid Stimulating Hormone 2.14 uIU/mL (0.465-4.68)
[2024-06-28 21:38] LABS: Vitamin B12 > 1000 pg/mL (239-931)
== END 2024-06-28 23:59 | disposition home or self-care (01) ==
LOC: LAB.DROPOF 06-29 09:17
PROVIDERS: PCP Nurse Practitioner Family; Visit Provider Nurse Practitioner Family
DX: E55.9 Vitamin D deficiency, unspecified (principal); E78.2 Mixed hyperlipidemia; I10 Essential (primary) hypertension; E11.9 Type 2 diabetes mellitus without complications; Z79.84 Long term (current) use of oral hypoglycemic drugs; Z79.85 Long-term (current) use of injectable non-insulin antidiabetic drugs
CPT/HCPCS: 80050; 80053; 80061; 82306; 82607; 84443; 85025

== ENCOUNTER 2024-10-09 10:38 | Outpatient (CLI) | payer OTHER, SELFPAY ==
--- NOTE | 2024-10-09 10:39 | MM_ITS ---
PROCEDURE INFORMATION: Exam: Bilateral Screening 3D Mammography Exam date and time: 10/09/2024 10:31 AM Age: 59 years old Clinical indication: Screening/baseline. No family history of breast cancer. TECHNIQUE: Imaging protocol: Bilateral Screening tomosynthesis and 2D mammography including computer-aided detection (CAD) when performed. COMPARISON: No relevant prior studies available.If prior mammograms are provided, I am happy to add an addendum. FINDINGS: MAMMOGRAPHY: Breast composition: There are scattered areas of fibroglandular density. Mass: No suspicious mass. Architectural distortion: None. Calcifications: No suspicious calcifications. Asymmetric density: None. Skin thickening: None. Axillary adenopathy: None. IMPRESSION: No mammographic evidence of malignancy. Annual screening is recommended unless otherwise clinically indicated. ASSESSMENT: BI-RADS Category 1: Negative.
== END 2024-10-09 23:59 | disposition home or self-care (01) ==
LOC: RAD 10:39
PROVIDERS: PCP Nurse Practitioner Family; Visit Provider Nurse Practitioner Family
DX: Z12.31 Encounter for screening mammogram for malignant neoplasm of breast (principal)
CPT/HCPCS: 77063; 77067

== ENCOUNTER 2024-10-22 13:06 | Outpatient (CLI) | payer OTHER, SELFPAY ==
[2024-10-22 16:11] VITALS: BMI 35.6
== END 2024-10-22 23:59 | disposition home or self-care (01) ==
LOC: DIETICIAN 13:07
PROVIDERS: PCP Nurse Practitioner Family; Visit Provider Nurse Practitioner Family
DX: E11.9 Type 2 diabetes mellitus without complications (principal)
CPT/HCPCS: 97802

== ENCOUNTER 2024-12-12 14:50 | Outpatient (CLI) | payer MEDICARE, SELFPAY ==
--- NOTE | 2024-12-12 14:54 | XR_ITS ---
PROCEDURE INFORMATION: Exam: XR Right Foot Exam date and time: 12/12/2024 2:55 PM Age: 59 years old Clinical indication: Pain; Foot; Right; Additional info: Right foot/ heel bone spur TECHNIQUE: Imaging protocol: Radiologic exam of the right foot. Views: 3 or more views. COMPARISON: No relevant prior studies available. FINDINGS: Bones/joints: There is normal anatomic alignment of the bones of the right foot. No evidence of a fracture or destructive bone lesion. There is a prominent bone spur along the plantar surface of the calcaneus. There are mild degenerative changes of the dorsal aspect of the bones of the midfoot. Soft tissues: There is a small triangular shaped foreign body projecting over the medial and proximal aspect of the right 3rd toe, possibly a glass foreign body. No gas in the soft tissues visualized. Mild soft tissue swelling along the dorsum of the right foot. IMPRESSION: 1. Prominent bone spur at the plantar surface of the calcaneus. 2. 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 3. Small triangular shaped foreign body projecting over the medial and proximal right 3rd toe.
== END 2024-12-12 23:59 | disposition home or self-care (01) ==
LOC: RAD 14:51
PROVIDERS: PCP Nurse Practitioner Family; Visit Provider Physician Assistant
DX: M79.671 Pain in right foot (principal); S90.31XA Contusion of right foot, initial encounter
CPT/HCPCS: 73630

== ENCOUNTER 2024-12-26 09:13 | Outpatient (CLI) | payer OTHER, SELFPAY ==
[2024-12-26 19:06] LABS: Basophils % 0.5 % (0.1-2.0); Eosinophils # 0.2 K/mm3 (0.0-0.4); Eosinophils % 2.2 % (0.1-12.0); Hematocrit 40.7 % (37.0-47.0); Hemoglobin 13.7 g/dL (12.2-16.2); Lymphocytes # 2.9 K/mm3 (0.7-4.5); Lymphocytes % 37.5 % (10-50); Mean Corpuscular HGB Conc 33.7 g/dL (31.8-35.4); Mean Corpuscular Hemoglobin 31.7 pg (27.0-31.2); Mean Corpuscular Volume 94.2 fl (81-99); Mean Platelet Volume 12.2 fl (7.4-10.4); Monocytes # 0.6 K/mm3 (0.1-1.0); Monocytes % 7.7 % (1.7-9.3); Neutrophils % 51.8 % (37.0-80.0); Platelet Count 185 K/mm3 (142-424); Red Blood Count 4.32 M/mm3 (4.20-5.40); Red Cell Distribution Width 13.2 % (11.5-17.5); White Blood Count 7.8 K/mm3 (4.8-10.8)
[2024-12-26 19:18] LABS: Creatinine,Urine Random 260 mg/dL (Not Estab.); Microalbumin/Creatinine Ratio 5.5
[2024-12-26 19:34] LABS: Alanine Aminotransferase 41 U/L (12-78); Albumin Level 4.5 g/dl (3.5-5.0); Albumin/Globulin Ratio 1.6 (1.1-1.8); Alkaline Phosphatase 72 U/L (38-126); Anion Gap 16.4 mEq/L (5-15); Aspartate Amino Transferase 42 U/L (14-36); Bilirubin,Total 0.2 mg/dl (0.2-1.3); Blood Urea Nitrogen 16 mg/dl (7-17); Carbon Dioxide 26 mmol/L (22.0-30.0); Chloride 100 mmol/L (98-107); Chol/HDL Ratio 4.3 (1-3.5); Cholesterol 112 mg/dl (140-200); Estimated Glomerular Filt Rate 57 ml/min (>60); GFR (African American) 69 ML/MIN (>60); Globulin 2.8 g/dL (1.3-3.2); Glucose 193 mg/dl (74-100); HDL Cholesterol 26 mg/dl (40-60); Potassium 4.4 mmoL/L (3.5-5.1); Sodium 138 mmol/L (136-145); Total Protein,Serum 7.3 g/dl (6.3-8.2); Triglycerides 244 mg/dl (30-150); VLDL Cholesterol 49 mg/dL (0-40)
[2024-12-26 19:46] LABS: Direct LDL Cholesterol 42.38 mg/dL (100-129)
[2024-12-26 20:06] LABS: Thyroid Stimulating Hormone 3.09 uIU/mL (0.465-4.68)
[2024-12-26 20:14] LABS: Hemoglobin A1C 7.4 % (4.0-6.0)
[2024-12-26 20:39] LABS: Vitamin B12 > 1000 pg/mL (239-931)
[2024-12-26 20:40] LABS: Folate 4.73 ng/mL
[2024-12-26 21:47] LABS: 25-OH Vitamin D, Total 102 ng/mL (30-100)
== END 2024-12-26 23:59 | disposition home or self-care (01) ==
LOC: LAB.DROPOF 12-27 12:29
PROVIDERS: PCP Nurse Practitioner Family; Visit Provider Nurse Practitioner Family
DX: E66.01 Morbid (severe) obesity due to excess calories (principal); Z68.35 Body mass index [BMI] 35.0-35.9, adult; E55.9 Vitamin D deficiency, unspecified; I10 Essential (primary) hypertension; E11.59 Type 2 diabetes mellitus with other circulatory complications; K21.9 Gastro-esophageal reflux disease without esophagitis; Z72.0 Tobacco use
CPT/HCPCS: 80053; 80061; 82043; 82306; 82570; 82607; 82746; 83036; 84443; 85025

== ENCOUNTER 2025-01-16 07:49 | Outpatient (CLI) | payer OTHER, SELFPAY ==
--- NOTE | 2025-01-16 07:49 | MR_ITS ---
FINAL REPORT CLINICAL HISTORY: (hindfoot) evaluate for PF calc stress fracture. plantar foot pain COMPARISON: None FINDINGS: Multiplanar MR imaging of the right foot was performed without contrast. The osseous structures are intact. There are mild degenerative changes of the midfoot. There is a mild partial tear along the anterior surface of the distal Achilles tendon measuring a proximally 1/4 tendon thickness. The remaining tendons are intact. No ligamentous injury is identified. The musculature is intact. There is severe plantar fasciitis. There is a mild partial tear of the lateral cord of the plantar fascia at the calcaneal insertion. No soft tissue mass or cyst is identified. IMPRESSION: Plantar fasciitis with partial tear. Mild partial tear Achilles tendon. Degenerative changes of the midfoot. Reviewed, Interpreted and Dictated by Sridhar Chavez MD Transcribed by Maria Alejandra Lara Authenticated and [facility]
== END 2025-01-16 23:59 | disposition home or self-care (01) ==
LOC: RAD 07:49
PROVIDERS: PCP Nurse Practitioner Family; Visit Provider Podiatrist
DX: M79.671 Pain in right foot (principal)
CPT/HCPCS: 73718

== ENCOUNTER → 2025-02-21 06:33 | Outpatient (CLI) | payer OTHER, SELFPAY | LOC: SL 06:33 | PROVIDERS: PCP Nurse Practitioner Family; Visit Provider Nurse Practitioner Family | DX: G47.33 Obstructive sleep apnea (adult) (pediatric) (principal); R06.83 Snoring; R40.0 Somnolence; G47.36 Sleep related hypoventilation in conditions classified elsewhere | CPT/HCPCS: G0399 ==

== ENCOUNTER 2025-03-28 09:49 | Outpatient (CLI) | payer OTHER, SELFPAY ==
--- OUTSIDE RECORDS SUMMARY | 2025-03-28 09:54 | XMS_ITS | Data Portability ---
Author Organization MD - [facility] - [facility] MIGUEL Lindquist ADMIN Address [address] [place] [address] Assessment Encounter Date Assessment Date Assessment LastModified by Organization Details LastModified Time 10/24/2022 10/24/2022 57-year-old eulalio smith with fecal urgency and diarrhea. No etiology on colonoscopy with random colon biopsies. She likely suffers from IBS-D -Start dicyclomine TID. If this does not manage her symptoms well, will consider treatment with Xifaxan TID x2 weeks. -Continue PPI for heartburn. -Consider celiac serologies at f/u -Repeat colonoscopy due 09/2027 for surveillance Not available 10/26/2022 10:56:26 12/05/2022 12/05/2022 57-year-old eulalio smith with fecal urgency and diarrhea. No etiology on colonoscopy with random colon biopsies. She may suffer from IBS-D. Dicyclomine was not helpful. -I will obtain a KUB (to be done at [facility]). If she appears constipated, will start laxative therapy. -If KUB unremarkable, will plant to start Xifaxan TID x2 weeks. -Continue PPI for heartburn. -Consider celiac serologies at f/u -Repeat colonoscopy due 09/2027 for surveillance Not available 12/05/2022 14:48:43 01/16/2023 01/16/2023 57-year-old eulalio smith with fecal urgency and diarrhea. No etiology on colonoscopy with random colon biopsies. GI panel was negative. KUB with no overt constipation. She likely suffers from IBS-D. Symptoms were improved following treatment with Xifaxan 550 mg p.o. TID x2 weeks but returned after stopping. 1) IBS-D -Continue dicyclomine as needed for abdominal cramping -Prescribe Xifaxan 550mg PO TID x2 weeks (2nd trial). Additional refill provided. -Use immodium as needed 1-4 times daily as needed to control diarrhea and urgency -Repeat colonoscopy due 09/2027 for surveillance 2) Heartburn -Continue omeprazole 3) Back pain -Acute. Rx provided for cyclobenzaprine prn -She has follow-up with orthopedic surgery regarding recent right meniscus injury. Follow-up in 3 months [email or web address] Not available 01/16/2023 13:41:39 04/18/2023 04/18/2023 57-year-old fema le with diarrhea, fecal urgency, and intermittent fecal incontinence. 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 Patient underwent 2 trials of Xifaxan 550 mg p.o. t.i.d. x2 weeks which did not relieve her symptoms. No etiology found on previous colonoscopy with random colon biopsies September 2022 when symptoms were present. 1) IBS-D -Continue dicyclomine as needed for abdominal cramping. No refills needed at this time. -Continue immodium 1-4 times daily as needed to control diarrhea and urgency if the patient finds that it is helpful -Repeat colonoscopy due 09/2027 for surveillance 2) Bile acid malabsorption syndrome: Patient reports fecal urgency after eating, made worse by greasy foods. Patient states she does have her gallbladder. -Prescribe Colestipol 1mg tablet PO BID x30 days for possible bile acid malabsorption syndrome to improve diarrhea -If symptoms are not improved with bile acid malabsorption treatment, will discuss possible use of Viberzi or Lomotil for IBS-D with Dr. Dacosta. 3) Alteration in bowel elimination: Patient reports most recent trial of Xifaxan made her constipated. -Obtain abdominal x-ray to evaluate stool load and rule out acute overflow constipation due to chronic Imodium use and possibly Xifaxan. Patient requests this be sent to [facility]. -Will notify patient if constipation is shown on x-ray. Will advise MiraLax purge to relieve constipation. Discussed this with patient in office today. 4) Heartburn -Continue omeprazole 2 week phone follow-up [email or web address] Not available 04/18/2023 11:24:34 05/26/2023 05/26/2023 57-year-old eulalio smith s/p choleycystectomy at [facility] 04/2023 with chronic diarrhea. No etiology found on previous colonoscopy with random colon biopsies 09/2022. Patient reports her symptoms are much improved since starting Colestipol and undergoing cholecystectomy: -Continue Colestipol 1mg tablet PO BID. The patient states she may prefer the powder form of this medication as the pills are large. If she decides she would like to try cholestyramine she will call the office and let us know. -Repeat colonoscopy due 09/2027 for surveillance The patient states she will follow-up as needed [email or web address] Not available 05/26/2023 11:31:46 Plan of Treatment Reminders Order Date Submit Date Provider Last Modified By Organization Details Last Modified Time Details Appointments None recorded. Lab None recorded. Referral None recorded. Procedures None recorded. Surgeries None recorded. Imaging XR, abdomen - Please evaluate stool load for possible constipati on. 2022 023 [email or web address] [facility] (X-Ray), [address], [place], [address], 3 11:28:37 XR, kidney + ureter + bladder 2022 023 [facility] (X-Ray), [address], [place], [address], 3 13:58:58 Medication Orders colestipol 1 gram tablet 2022 023 [facility] [address] [place], [address], 3 11:30:39 cyclobenza jarett 10 mg tablet 2022 023 [facility], [address] [place], [address], 3 11:48:43 Xifaxan 550 mg tablet 2022 023 [facility], [address] [place], [address], 3 11:10:51 dicyclomin e 20 mg tablet 2021 022 [facility], [address] [place], [address], 3 11:48:41 Patient TargetsNo targets recorded. Patient Instructions Encounter Date Encounter Id Patient Instructions Last Modified By Organization Details Last Modified Time 01/16/2023 [id number] DATE OF OPERATION: 09/27/2022 SURGEON: Glenn Dacosta MD PROCEDURE: Colonoscopy. INDICATION FOR PROCEDURE: The patient is a very pleasant 57-year-old female with fecal urgency and diarrhea. Colonoscopy is planned for further evaluation. ASA SCORE: II. ANESTHESIA: MAC anesthesia provided by the anesthesia department. DESCRIPTION OF OPERATION: After informed consent, the patient was positioned in the left lateral decubitus position. A digital rectal exam was performed and was normal. A pediatric colonoscope was advanced from the anus. The terminal ileum without difficulty. The patient's toleration of the scope passage was excellent. Quality of preparation was mostly good. There were few areas of solid vegetable matter that could not be completely cleared. The scope was withdrawn. The mucosa was carefully examined. The terminal ileum appeared normal. A single 5-7 mm flat polyp was noted within the cecum. This was resected using cold snare polypectomy. No other polyps were identified. The remainder of the colonic mucosa appeared normal. Random biopsies were performed. A stool sample was obtained. Retroflexion was performed in the rectum and was normal. COMPLICATIONS: None. BLOOD LOSS: Minimal. CONCLUSION: Normal terminal ileum. Single polyp identified, resected, and retrieved. No evidence of colitis. Stool sample and biopsies obtained. RECOMMENDATIONS: The biopsy specimen will be reviewed and the patient will follow up in the clinic. Repeat colonoscopy is suggested for surveillance purposes in 5 years. PATH: Random colon biopsies were normal. Cecal polyp: Fragments of tubular adenoma. Negative for carcinoma or high-grade dysplasia. [email or web address] Not available 01/16/2023 13:44:23 04/18/2023 [id number] DATE OF OPERATION: 09/27/2022 SURGEON: Glenn Dacosta MD PROCEDURE: Colonoscopy. INDICATION FOR PROCEDURE: The patient is a very pleasant 57-year-old female with fecal urgency and diarrhea. Colonoscopy is planned for further evaluation. ASA SCORE: II. ANESTHESIA: MAC anesthesia provided by the anesthesia department. DESCRIPTION OF OPERATION: After informed consent, the patient was positioned in the left lateral decubitus position. A digital rectal exam was performed and was normal. A pediatric colonoscope was advanced from the anus. The terminal ileum without difficulty. The patient's toleration of the scope passage was excellent. Quality of preparation was mostly good. There were few areas of solid vegetable matter that could not be completely cleared. The scope was withdrawn. The mucosa was carefully examined. The terminal ileum appeared normal. A single 5-7 mm flat polyp was noted within the cecum. This was resected using cold snare polypectomy. No other polyps were identified. The remainder of the colonic mucosa appeared normal. Random biopsies were performed. A stool sample was obtained. Retroflexion was performed in the rectum and was normal. COMPLICATIONS: None. BLOOD LOSS: Minimal. CONCLUSION: Normal terminal ileum. Single polyp identified, resected, and retrieved. No evidence of colitis. Stool sample and biopsies obtained. RECOMMENDATIONS: The biopsy specimen will be reviewed and the patient will follow up in the clinic. Repeat colonoscopy is suggested for surveillance purposes in 5 years. PATH: Random colon biopsies were normal. Cecal polyp: Fragments of tubular adenoma. Negative for carcinoma or high-grade dysplasia. [email or web address] Not available 04/17/2023 13:44:01 05/26/2023 [id number] DATE OF OPERATION: 09/27/2022 SURGEON: Glenn Dacosta MD PROCEDURE: Colonoscopy. INDICATION FOR PROCEDURE: The patient is a very pleasant 57-year-old female with fecal urgency and diarrhea. Colonoscopy is planned for further evaluation. ASA SCORE: II. ANESTHESIA: MAC anesthesia provided by the anesthesia department. DESCRIPTION OF OPERATION: After informed consent, the patient was positioned in the left lateral decubitus position. A digital rectal exam was performed and was normal. A pediatric colonoscope was advanced from the anus. The terminal ileum without difficulty. The patient's toleration of the scope passage was excellent. Quality of preparation was mostly good. There were few areas of solid vegetable matter that could not be completely cleared. The scope was withdrawn. The mucosa was carefully examined. The terminal ileum appeared normal. A single 5-7 mm flat polyp was noted within the cecum. This was resected using cold snare polypectomy. No other polyps were identified. The remainder of the colonic mucosa appeared normal. Random biopsies were performed. A stool sample was obtained. Retroflexion was performed in the rectum and was normal. COMPLICATIONS: None. BLOOD LOSS: Minimal. CONCLUSION: Normal terminal ileum. Single polyp identified, resected, and retrieved. No evidence of colitis. Stool sample and biopsies obtained. RECOMMENDATIONS: The biopsy specimen will be reviewed and the patient will follow up in the clinic. Repeat colonoscopy is suggested for surveillance purposes in 5 years. PATH: Random colon biopsies were normal. Cecal polyp: Fragments of tubular adenoma. Negative for carcinoma or high-grade dysplasia. [email or web address] Not available 05/26/2023 08:56:41 Reason for Referral None Reported. Results Created Date Observation Date Name Description Value Unit Range Abnormal Flag Note LastModifiedBy Organization Detail LastModifiedTime 09/27/20 22 09/27/2022 GASTR OINTE LENNOX L PANEL ,STL PCR campylobacte r NOT DETECT ED not detect ed CAMPY LOBAC TER AND CRYPT OSPOR IDIUM RESUL TS WILL BE CONFI RMED BEFOR E FINAL RESUL TS REPOR PAOLA. Not Available [facility] ([facility]) [address] [place], [address], 09/27/2022 11:40:41 09/27/20 22 09/27/2022 GASTR OINTE LENNOX L PANEL ,STL PCR C difficile toxin A/B NOT DETECT ED not detect ed Not Available [facility] ([facility]) [address] [place], [address], 09/27/2022 11:40:41 09/27/20 22 09/27/2022 GASTR OINTE LENNOX L PANEL ,STL PCR plesiomonas shigelloides NOT DETECT ED Not Available [facility] ([facility]) [address] [place], [address], 09/27/2022 11:40:41 09/27/20 22 09/27/2022 GASTR OINTE LENNOX L PANEL ,STL PCR salmonella NOT DETECT ED not detect ed Not Available [facility] ([facility]) [address] [place], [address], 09/27/2022 11:40:41 09/27/20 22 09/27/2022 GASTR OINTE LENNOX L PANEL ,STL PCR vibrio NOT DETECT ED not detect ed Not Available [facility] ([facility]) [address], [place], [address], 09/27/2022 11:40:41 09/27/20 22 09/27/2022 GASTR OINTE LENNOX L PANEL ,STL PCR vibrio cholerae NOT DETECT ED not detect ed Not Available [facility] ([facility]) [address], [place], [address], 09/27/2022 11:40:41 09/27/20 22 09/27/2022 GASTR OINTE LENNOX L PANEL ,STL PCR yersinia enterocoliti ca NOT DETECT ED not detect ed Not Available [facility] ([facility]) [address], [place], [address], 09/27/2022 11:40:41 09/27/20 22 09/27/2022 GASTR OINTE LENNOX L PANEL ,STL PCR enteroaggreg ative E coli NOT DETECT ED not detect ed Not Available [facility] ([facility]) [address], [place], [address], 09/27/2022 11:40:41 09/27/20 22 09/27/2022 GASTR OINTE LENNOX L PANEL ,STL PCR enteropathog enic E coli NOT DETECT ED not detect ed Not Available [facility] ([facility]) [address], [place], [address], 09/27/2022 11:40:41 09/27/20 22 09/27/2022 GASTR OINTE LENNOX L PANEL ,STL PCR enterotoxige olaf E coli lt/st NOT DETECT ED not detect ed Not Available [facility] ([facility]) [address], [place], [address], 09/27/2022 11:40:41 09/27/20 22 09/27/2022 GASTR OINTE LENNOX L PANEL ,STL PCR shiga-toxin- producing E coli NOT DETECT ED not detect ed Not Available [facility] ([facility]) [address], [place], [address], 09/27/2022 11:40:41 09/27/20 22 09/27/2022 GASTR OINTE LENNOX L PANEL ,STL PCR E coli O157 N/A not detect ed Not Available [facility] ([facility]) [address], [place], [address], 09/27/2022 11:40:41 09/27/20 22 09/27/2022 GASTR OINTE LENNOX L PANEL ,STL PCR shigella/ent eroinvasive E coli NOT DETECT ED not detect ed Not Available [facility] ([facility]) [address], [place], [address], 09/27/2022 11:40:41 09/27/20 22 09/27/2022 GASTR OINTE LENNOX L PANEL ,STL PCR cryptosporid ium NOT DETECT ED not detect ed Not Available [facility] ([facility]) [address], [place], [address], 09/27/2022 11:40:41 09/27/20 22 09/27/2022 GASTR OINTE LENNOX L PANEL ,STL PCR cyclospora cayetanensis NOT DETECT ED not detect ed Not Available [facility] ([facility]) [address] [place], [address], 09/27/2022 11:40:41 09/27/20 22 09/27/2022 GASTR OINTE LENNOX L PANEL ,STL PCR entamoeba histolytica NOT DETECT ED not detect ed Not Available [facility] ([facility]) [address] [place], [address], 09/27/2022 11:40:41 09/27/20 22 09/27/2022 GASTR OINTE LENNOX L PANEL ,STL PCR giardia lamblia NOT DETECT ED not detect ed Not Available [facility] ([facility]) [address], [place], [address], 09/27/2022 11:40:41 09/27/20 22 09/27/2022 GASTR OINTE LENNOX L PANEL ,STL PCR adenovirus F NOT DETECT ED not detect ed Not Available [facility] ([facility]) [address], [place], [address], 09/27/2022 11:40:41 09/27/20 22 09/27/2022 GASTR OINTE LENNOX L PANEL ,STL PCR astrovirus NOT DETECT ED not detect ed Not Available [facility] ([facility]) [address], [place], [address], 09/27/2022 11:40:41 09/27/20 22 09/27/2022 GASTR OINTE LENNOX L PANEL ,STL PCR norovirus GI/gii NOT DETECT ED not detect ed Not Available [facility] ([facility]) [address], [place], [address], 09/27/2022 11:40:41 09/27/20 22 09/27/2022 GASTR OINTE LENNOX L PANEL ,STL PCR rotavirus A NOT DETECT ED not detect ed Not Available [facility] ([facility]) [address], [place], [address], 09/27/2022 11:40:41 09/27/20 22 09/27/2022 GASTR OINTE LENNOX L PANEL ,STL PCR sapovirus NOT DETECT ED not detect ed Test Metho d Limit ation s: This assay does not disti nguis h betwe en viabl e and non-v iable organ isms/ This test does not deter mine antib iotic susce ptibi litie s. The use of forme d or conta minat ed stool sampl es are not recom bela d. Ervin eous resul ts may occur from impro per speci men colle ction , handl ing or stora ge, prese nce of inhib itors , prese nce of seque nce varia nts in the gene targe ts of the assay , techn ical error s or sampl e mix-u p. Posit laquita C.dif ficil e resul ts may not be clini diana relev ant in child norbert under the age of two. Consu ltati on with an Infec tious Disea se Pedia trici an is recom bela d. Test Metho dolog y: BioFi re FilmA rray GI Panel - Melti ng curve alex sis, PCR, multi plex, rever se trans cript ase Not Available [facility] ([facility]) [address], [place], [address], 09/27/2022 11:40:41 12/07/19 23 12/07/2022 XR, kidne y + urete r + bladd er No observ ation record ed. [email or web address] [facility] [address], [place], [address], 12/14/2022 15:52:12 Result Notes None recorded. Problems Name Problem SNOMED Code Status Onset Date Resolution Date Notes Provider Name and Address Organization Details Recorded Time Irritable bowel syndrome with diarrhea [id number] Active 2021 Emerson Mcdaniel PA-C [address], [place], [address] , [facility] - [facility] & [place] 2 14:13:05 Heartburn [id number] Active 2021 Emerson Mcdaniel PA-C [address], [place], [address] , [facility] - [facility] & [place] 2 14:13:34 Musculoskelet al pain [id number] Active 2022 Emerson Mcdaniel PA-C [address], [place], [address] , [place] - [facility] [place] & [place] 13:34:00 Problem Notes None recorded. Procedures Surgical History None recorded. Imaging Results Imaging Date Name Status LastModified by Organiz ation Details LastModified Time 12/07/2022 XR, kidney + ureter + bladder completed [email or web address] [facility] [address], [place], [address], 12/14/2022 15:52:12 Procedure Notes None recorded. Medical Equipment None Reported. Allergies No known drug allergies Medications Name Sig Start Date Stop Date Status Note LastModified by Organization Details LastModified Time vitamin d3 2,000 unit softg TAKE 1 CAPSULE BY MOUTH ONCE DAILY. active Not Available Not Available No t Available vitamin d3 50 mcg (1999 ut) TAKE 1 CAPSULE BY MOUTH ONCE DAILY. 12/05 completed Not Available Not Available Not Available cyclobenzap rine 10 mg tablet TAKE 1 TABLET BY MOUTH TWICE DAILY FOR 10 DAYS. active Not Available Not Available No t Available metformin 500 mg tablet TAKE 2 TABLETS BY MOUTH TWICE DAILY. active Not Available Not Available No t Available pilocarpine 5 mg tablet TAKE ONE TABLET BY MOUTH THREE TIME DAILY 12/05 completed Not Available Not Available Not Available doxycycline hyclate 100 mg capsule TAKE 1 CAPSULE BY MOUTH TWICE DAILY FOR 14 DAYS FOR LEFT HALLUX CELLULITI S active Not Available Not Available No t Available cetirizine 10 mg tablet TAKE 1 TABLET BY MOUTH ONCE DAILY. active Not Available Not Available No t Available ibuprofen 800 mg tablet TAKE 1 TABLET BY MOUTH EVERY 8 HOURS NEEDED FOR PAIN. active Not Available Not Available No t Available hydrocodone 5 mg-acetamin ophen 325 mg tablet TAKE 1-2 TABLETS BY MOUTH EVERY 6 HOURS NEEDED FOR PAIN active Not Available Not Available No t Available urea 40 % topical cream active Not Available Not Available Not Available ondansetron HCl 4 mg tablet TAKE 1 TABLET BY MOUTH EVERY 8 HOURS NEEDED FOR NAUSEA. active Not Available Not Available No t Available Advair Diskus 100 mcg-50 mcg/dose powder for inhalation INHALE 1 PUFF INTO THE LUNGS TWICE DAILY active Not Available Not Available No t Available topiramate 25 mg tablet TAKE 1 TABLET BY MOUTH AT BEDTIME 12/05 completed Not Available Not Available Not Available omeprazole 40 mg capsule,del ayed release TAKE 1 CAPSULE BY MOUTH ONCE DAILY. active Not Available Not Available No t Available tramadol 50 mg tablet TAKE 1 TABLET BY MOUTH EVERY 6 HOURS IF NEEDED FOR SEVERE PAIN FOR UP TO 10 DAYS. 12/05 completed Not Available Not Available Not Available butalbital- acetaminoph en-caffeine 50 mg-325 mg-40 mg tablet TAKE 1 TABLET BY MOUTH EVERY 6 HOURS NEEDED FOR PAIN. 12/05 completed Not Available Not Available Not Available glimepiride 2 mg tablet TAKE ONE TABLET BY MOUTH ONCE DAILY active Not Available Not Available No t Available topiramate 25 mg sprinkle capsule TAKE 1 CAPSULE BY MOUTH ONCE DAILY. active Not Available Not Available No t Available dicyclomine 20 mg tablet Take 1 Tablet by mouth 3 times daily before meals. active Not Available Not Available No t Available cevimeline 30 mg capsule TAKE 1 CAPSULE ORALLY THREE TIMES DAILY active Not Available Not Available No t Available hydrochloro thiazide 12.5 mg capsule TAKE 1 CAPSULE BY MOUTH ONCE DAILY. active Not Available Not Available No t Available pramipexole 0.25 mg tablet TAKE 1 TAB BY MOUTH ONCE NIGHTLY FOR RESTLESS LEG SYNDROME. MAY INCREASE UP TO 2 TABS NIGHTLY AFTER 2 WEEKS IF RECURRENT SYMPTOMS/ NO SIDE EFFECTS 12/05 completed Not Available Not Available Not Available ergocalcife rol (vitamin D2) 1,250 mcg (50,000 unit) capsule TAKE 1 CAPSULE BY MOUTH ONCE WEEKLY. active Not Available Not Available No t Available docusate sodium 250 mg capsule 12/05 completed Not Available Not Available Not Available fluticasone propionate 50 mcg/actuati on nasal spray,suspe nsion USE ONE SPRAY IN EACH NOSTRIL ONCE DAILY active Not Available Not Available No t Available colestipol 1 gram tablet TAKE 2 TABLETS BY MOUTH TWICE DAILY. active Not Available Not Available No t Available amoxicillin 875 mg-potassiu m clavulanate 125 mg tablet TAKE 1 TABLET BY MOUTH TWICE DAILY FOR 10 DAYS. 10/24 completed Not Available Not Available Not Available Ventolin HFA 90 mcg/actuati on aerosol inhaler INHALE 2 PUFFS INTO THE LUNGS 4 TIMES DAILY. active Not Available Not Available No t Available oxycodone 5 mg tablet TAKE 1 TABLET BY MOUTH EVERY 8 HOURS NEEDED FOR MAJOR SURGERY/T RAUMA. active Not Available Not Available No t Available rosuvastati n 5 mg tablet TAKE 1 TABLET BY MOUTH ONCE DAILY. active Not Available Not Available No t Available bupropion HCl XL 150 mg 24 hr tablet, extended release TAKE 1 TABLET BY MOUTH ONCE DAILY. active Not Available Not Available No t Available hydrochloro thiazide 12.5 mg tablet TAKE 1 TABLET BY MOUTH ONCE DAILY NEEDED. active Not Available Not Available No t Available cholecalcif alessandra (vitamin D3) 1,250 mcg (50,000 unit) capsule TAKE 1 CAPSULE BY MOUTH ONCE WEEKLY. active Not Available Not Available No t Available Gavilyte-C 240 gram-22.72 gram-6.72 gram-5.84 gram oral solution as directed orally 8 oz q15 until empty per office direction s 12/05 completed Not Available Not Available Not Available GaviLyte-G 236 gram-22.74 gram-6.74 gram-5.86 gram oral solution TAKE DIRECTED 12/05 completed Not Available Not Available Not Available Xifaxan 550 mg tablet TAKE 1 TABLET BY MOUTH 3 TIMES DAILY FOR 14 DAYS. active Not Available Not Available No t Available Vitamin D3 50 mcg (2,000 unit) capsule active Not Available Not Available Not Available Horizant ER 300 mg tablet,exte nded release TAKE 1 TABLET BY MOUTH NIGHTLY AT BEDTIME. TAKE 2 HOURS BEFORE BEDTIME * active Not Available Not Available No t Available naloxone 4 mg/actuatio n nasal spray 01/16 completed Not Available Not Available Not Available Ozempic 0.25 mg or 0.5 mg (2 mg/1.5 mL) subcutaneou s pen injector INJECT 0.25 MG SUBCUTANE OUSLY ONCE WEEKLY 04/18 completed Not Available Not Available Not Available Ubrelvy 100 mg tablet TAKE 1 TABLET BY MOUTH NEEDED FOR MIGRAINE. active Not Available Not Available No t Available Ozempic 0.25 mg or 0.5 mg (2 mg/3 mL) subcutaneou s pen injector INJECT 0.25 MG UNDER THE SKIN ONCE WEEKLY active Not Available Not Available No t Available Vitals Date Recorded Body weight Heart rate Systolic blood pressure Diastolic blood pressure Provider Name and Address Organization Details Last Updated DateTime 12/05/2022 070297.88 g 103 /min 161 mm[Hg] 93 mm[Hg] Yolanda [place] [facility] & [place] 12/05/2022 14:12:49 Date Recorded Body weight Heart rate Systolic blood pressure Diastolic blood pressure Provider Name and Address Organization Details Last Updated DateTime 01/16/2023 456721.28 g 91 /min 121 mm[Hg] 80 mm[Hg] Yolanda RAUSCH [facility] [place] 01/16/2023 13:09:35 Date Recorded Body weight Body mass index (BMI) Body height Oxygen saturation Oxygen saturation in Arterial blood by Pulse oximetry Heart rate Systolic blood pressure Diastolic blood pressure Provider Name and Address Organization Details Last Updated DateTime 3 562096. 91 g 34.6 kg/m2 170.18 cm 95 % 95 % 86 /min 125 mm[Hg] 87 mm[Hg] Bianca Yun [facility] & [place] 3 10:19:27 Date Recorded Body weight Heart rate Systolic blood pressure Diastolic blood pressure Provider Name and Address Organization Details Last Updated DateTime 10/24/2022 925948.28 g 80 /min 146 mm[Hg] 80 mm[Hg] Yolanda Jordan [facility] & [place] 10/24/2022 13:33:24 Social History Question Answer Notes LastModified by Organizat ion Details LastModified Time Tobacco Smoking Status Never Sm[facility] [place] 12/05/2022 14:22:24 What Is Your Level Of Alcohol Consumption? None [email or web address] Information not available 12/05/2022 Sex: Female Functional Status None recorded. Mental Status None recorded. Family History Nothing Reported. Medical History No medical history recorded. Gynecological HistoryNo gynecological history recorded. Obstetrics History GPAL:G 0 P 0 0 0 0 Past Encounters Encounter ID Performer Location Encounter Start Date Encounter Closed Date Diagnosis/Indication Diagnosis SNOMED-CT Code Diagnosis ICD10 Code Diagnosis Note [id number] Emerson Mcdaniel PA-C [facility] [address] [address] 10/24/2022 13:20:06 10/24/2022 14:13:38 Irritable bowel syndrome with diarrhea 809374065 K58.0 History of polyp of colon 857749829 Z86.010 Heartburn 07737727 R12 [id number] Emerson Mcdaniel PA-C [facility] [place] [id number] 2 12/05/2022 13:57:51 12/05/2022 14:45:08 Irritable bowel syndrome with diarrhea 487275053 K58.0 Heartburn 43524168 R12 History of polyp of colon 271562959 Z86.010 Surveillan ce colonoscop y due 09/2027 [id number] Emerson Mcdaniel PA-C [facility] [place] [id number] 01/16/2023 13:02:07 01/16/2023 13:55:54 Irritable bowel syndrome with diarrhea 912937932 K58.0 History of polyp of colon 603618605 Z86.010 Heartburn 97520509 R12 Musculoskeletal pain 279 389591 M79.10 [id number] Glenn Dacosta MD [facility] [place] [id number] 2 04/18/2023 10:07:20 04/18/2023 10:46:37 Irritable bowel syndrome with diarrhea 977250332 K58.0 History of polyp of colon 448495176 Z86.010 Heartburn 00146592 R12 Alteration in bowel elimination: constipation 08498800 K59.00 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 [id number] Glenn Dacosta MD [facility] [place] [id number] 2 05/26/2023 11:01:57 05/26/2023 11:20:04 Irritable bowel syndrome with diarrhea 675126081 K58.0 History of polyp of colon 928710008 Z86.010 Heartburn 52251091 R12 Alteration in bowel elimination: constipation 47103821 K59.00 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 History of cholecystectomy 162840769 Z90.49 Health Concerns Section Related Observation LastModified by Organization Detai ls LastModified Time None Recorded Concern Status LastModified by Organization Details LastModified Time None Recorded Advance Directives Directive None Recorded Payers Insurance Date Sequence Insurance Name Policy Number Policy Hernandez Covered Member ID Hernandez Member ID Guarantor Name 10/24/2022 1 [facility] Onelia Almazan [id number] Onelia Almazan 05/23/2023 1 [facility] ([place] - [place] DASHAWN Almazan [id number] Onelia Almazan Notes Date Note Type Note Provider Name and Address Organization Details Recorded Time 10/24/2022 text/html Ms. Almazan present s to the office today for follow-up of a recent colonoscopy performed on September 27, 2022 in evaluation of fecal urgency and diarrhea. One polyp was identified and resected. Pathology showed tubular adenoma. Random colon biopsies were normal. Gross endoscopic findings were otherwise unremarkable. GI panel is negative. Her symptoms have persisted. She experiences abdominal cramping at times. She also has heartburn for which she is taking Omeprazole with good effect. Emerson Mcdaniel PA-C [address], [place], [address], [facility] 10/26/2022 10:57:00 12/05/2022 text/html PREVIOUS ( 2): Ms. Almazan presents to the office today for follow-up of a recent colonoscopy performed on September 27, 2022 in evaluation of fecal urgency and diarrhea. One polyp was identified and resected. Pathology showed tubular adenoma. Random colon biopsies were normal. Gross endoscopic findings were otherwise unremarkable. GI panel is negative. Her symptoms have persisted. She experiences abdominal cramping at times. She also has heartburn for which she is taking Omeprazole with good effect. CURRENT: Ms. Almazan returns to the office today for follow-up of diarrhea and fecal urgency. Dicyclomine did not change her symptoms. She reports that she felt improved for a few days following her colonoscopy, potentially indicating underlying constipation with overflow stools. She reports being under increased stress due to losing multiple family members over the past year. Emerson Mcdaniel PA-C [address], [place], [address], [facility] 12/05/2022 14:50:11 01/16/2023 text/html PREVIOUS ( 3): Ms. Almazan presents to the office today for follow-up of a recent colonoscopy performed on September 27, 2022 in evaluation of fecal urgency and diarrhea. One polyp was identified and resected. Pathology showed tubular adenoma. Random colon biopsies were normal. Gross endoscopic findings were otherwise unremarkable. GI panel is negative. Her symptoms have persisted. She experiences abdominal cramping at times. She also has heartburn for which she is taking Omeprazole with good effect. CURRENT: Ms. Almazan presents to the clinic today for follow-up of diarrhea and fecal urgency. She reports that the 14 day trial of Xifaxan relieved her diarrhea, but after she stopped the medication her diarrhea and urgency returned. She reports greasy foods make her symptoms worse. The patient also complains of back and knee pain. She states she is currently taking 600mg of ibuprofen up to three times daily as needed for meniscus tear. She also complains of back pain from a recent fall. The patient denies hematemesis or hematochezia. Emerson Mcdaniel PA-C [address], [place], [address], [place] [facility] [place] [facility] [place] 01/16/2023 13:44:32 04/18/2023 text/html PREVIOUS ( 3): Ms. Almazan presents to the office today for follow-up of a recent colonoscopy performed on September 27, 2022 in evaluation of fecal urgency and diarrhea. One polyp was identified and resected. Pathology showed tubular adenoma. Random colon biopsies were normal. Gross endoscopic findings were otherwise unremarkable. GI panel is negative. Her symptoms have persisted. She experiences abdominal cramping at times. She also has heartburn for which she is taking Omeprazole with good effect. PREVIOUS (01/16/23): Ms. Almazan presents to the clinic today for follow-up of diarrhea and fecal urgency. She reports that the 14 day trial of Xifaxan relieved her diarrhea, but after she stopped the medication her diarrhea and urgency returned. She reports greasy foods make her symptoms worse. The patient also complains of back and knee pain. She states she is currently taking 600mg of ibuprofen up to three times daily as needed for meniscus tear. She also complains of back pain from a recent fall. The patient denies hematemesis or hematochezia. CURRENT (04/18/23 Juan A Basurto): Ms. Almazan Presents to the clinic today for follow-up of diarrhea. She continues to report fecal urgency immediately after eating. She states this is worse after eating greasy foods. The patient still has her gallbladder. She also reports episodes of fecal incontinence when she is unable to make it to the bathroom. She has undergone 14 day trial of Xifaxan x2 which has not relieved her symptoms. She states the most recent trial of Xifaxan made her constipated. Imodium has not been helpful and she only takes it occasionally when needed. The patient denies abdominal cramping, nausea, vomiting, hematemesis or hematochezia. COREY BASURTO MSN, VULCANIZER, WAITSTAFF CAPTAIN-C [address], [place], [address], [facility] [place] [facility] [place] [facility] [place] 04/18/2023 11:29:48 05/26/2023 text/html PREVIOUS ( 3): Ms. Almazan presents to the clinic today for follow-up of diarrhea and fecal urgency. She reports that the 14 day trial of Xifaxan relieved her diarrhea, but after she stopped the medication her diarrhea and urgency returned. She reports greasy foods make her symptoms worse. The patient also complains of back and knee pain. She states she is currently taking 600mg of ibuprofen up to three times daily as needed for meniscus tear. She also complains of back pain from a recent fall. The patient denies hematemesis or hematochezia. PREVIOUS (04/18/23 Juan A Basurto): Ms. Almazan Presents to the clinic today for follow-up of diarrhea. She continues to report fecal urgency immediately after eating. She states this is worse after eating greasy foods. The patient still has her gallbladder. She also reports episodes of fecal incontinence when she is unable to make it to the bathroom. She has undergone 14 day trial of Xifaxan x2 which has not relieved her symptoms. She states the most recent trial of Xifaxan made her constipated. Imodium has not been helpful and she only takes it occasionally when needed. The patient denies abdominal cramping, nausea, vomiting, hematemesis or hematochezia. CURRENT (05/26/23 Juan A Basurto): Ms. Almazan presents via telephonic encounter today for follow up of diarrhea. The patient states she was recently hospitalized at [facility] on 05/01/2023 for abdominal pain. She states her gallbladder was the underlying issue and she underwent cholecystectomy during this hospitalization. She reports her abdominal pain and diarrhea are much improved. She has continued to take colestipol which was initially helpful in controlling her diarrhea, and still continues to be helpful s/p cholecystectomy. The patient has continued diet modifications and avoiding fatty foods. She reports her bowel movements have decreased to 2-3 times daily and are soft and formed. She feels she is having adequate bowel movements on her current therapy at this time. She denies hematemesis hematochezia or melena. I spent a total of 12 minutes during this real-time clinical encounter that was initiated by the patient which started at 11:07 and ended at 11:19. Consent was obtained to engage in telephonic service. Greater than 50% of the time spent was devoted to counseling and coordinating care including review of patient record, patient lab data and studies as well as discussing diagnostic evaluation and workup, planned therapeutic intervention and further disposition of care. This include any additional research needed to obtain further information in formulating the plan of care for this patient. This includes counseling the patient about their disease and diagnosis, specifically as above. COREY BASURTO MSN, VULCANIZER, WAITSTAFF CAPTAIN-C [address] , [place], [address], [facility] [place] [facility] [place] [facility] [place] 05/26/2023 11:35:59 OBGyn Episode No OBEpisode recorded.
[2025-03-28 10:35] VITALS: PULSE 80; PULSE 82
[2025-03-28] MEDS: ALBUTEROL 0.083% 2.5 MG/3 ML NEB IH (10:35)
== END 2025-03-28 23:59 | disposition home or self-care (01) ==
LOC: RT 09:49
PROVIDERS: PCP Nurse Practitioner Family; Visit Provider Nurse Practitioner Family
DX: F17.210 Nicotine dependence, cigarettes, uncomplicated (principal); R06.02 Shortness of breath
CPT/HCPCS: 94060; 94640; 94726; 94729

== ENCOUNTER 2025-03-31 10:59 | Outpatient (RCR) | payer OTHER, SELFPAY ==
--- NOTE | 2025-03-31 12:32 | HMH.PTOPEV ---
PT Outpatient Evaluation Rehab PT Outpatient Evaluation Start: 03/31/25 11:08 Freq: Status: Active Protocol: Document 03/31/25 12:14 RIDGE (Rec: 03/31/25 12:32 RIDGE [id number]) E-signed By Daren Valdez, PT Outpatient Therapy Subjective History Subjective History Pt is a 59 yof who is referred to [facility] outpatient PT following a traumatic plantar fascia tear of her R foot on . The pt reports she was at work and was taking trash to the [employer] and slipped on snow/ice and felt a pop in her foot. She was casted for approximately 2 months to allow it to heal. She then was NWB in a fracture boot until 03/20. She now presents FWB in fx boot, per Dr. Matias. Pt reports that the base of her heel continues to be extremely tender, especially with weight bearing . Reports that she has walked short distances without the boot, such as going to the bathroom in the night and it is very painful to put weight onto her R heel. PMH: T2DM, HTN Occupation: [employer] ( currently off work) New diagnosis of cancer in past 12 No months? Chief Complaint Pain,Stiff,Weakness Symptom Type Ache,Sharp Symptoms Relieved By Ice,Prescription Meds Symptoms Aggravated By Standing,Physical Activity, Walking Prior Functional Limitations None Current Functional Limitations Lifting,Housework,Standing, Squatting,Walking,Stairs, Balance Symptom Description Constant but Variable,Activity Dependent Level of pain today (0-10) 8 Pain scale - at its best (0-10) 4 Pain scale - at its worst (0-10) 10 Ankle/Foot Eval Gait Observation General Gait Pattern Observation Antalgic Gait,Decrease Weight Bear (R),Decrease Weight Bear (L) Palpation Tenderness right Ankle/Foot Palpation Overall Comment 4/4 TTP at Calcaneal tubercle and along proximal PF ROM Ankle/Foot Dorsiflexion w/Knee Extended 8 Active Range Motion (degrees) Ankle/Foot Dorsiflexion w/Knee Extended 14 Passive Range (degrees) Ankle/Foot Plantar Flexion Active Range 35 of Motion (degrees) Ankle/Foot Plantar Flexion Passive Range 40 of Motion (degrees) Ankle/Foot Eversion Active Range of 10 Motion (degrees) Ankle/Foot Eversion Passive Range of 15 Motion (degrees) Ankle/Foot Inversion Active Range of 18 Motion (degrees) Ankle/Foot Inversion Passive Range of 20 Motion (degrees) Ankle/Foot ROM Limitations Soft Tissue Tightness,Pain Great Toe Metatarsophalangeal Extension WNL Active Range Motion (degrees) MMT Ankle Dorsiflexion Strength Grade 2+ Poor+ Ankle Plantarflexion Strength Grade 2+ Poor+ Foot Eversion Strength Grade 2+ Poor+ Foot Inversion Strength Grade 2+ Poor+ Special Tests Foot/Heel Tap/Percussion Test Positive Right Lower Extremity Functional Index Activities Today, do you or would you have any difficulty at all with: a.Any of your usual work, housework or Moderate difficulty school activities b. Your usual hobbies, recreational or Extreme difficulty or unable sporting activities to perform activity c. Getting into or out of the bath Moderate difficulty d. Walking between rooms Moderate difficulty e. Putting on your shoes or socks Moderate difficulty f. Squatting Moderate difficulty g. Lifting an object, like a bag of Moderate difficulty groceries from the floor h. Performing light activities around Moderate difficulty your home i. Performing heavy activities around Moderate difficulty your home j. Getting into or out of a car Moderate difficulty k. Walking 2 blocks Extreme difficulty or unable to perform activity l. Walking a mile Extreme difficulty or unable to perform activity m. Going up or down 10 stairs (about 1 Quite a bit of difficulty flight of stairs) n. Standing for 1 hour Moderate difficulty o. Sitting for 1 hour Moderate difficulty p. Running on even ground Extreme difficulty or unable to perform activity q. Running on uneven ground Extreme difficulty or unable to perform activity r. Making sharp turns while running fast Extreme difficulty or unable to perform activity s. Hopping Extreme difficulty or unable to perform activity t. Rolling over in bed No difficulty LEFI Score Lower Extremity Functional Index Score 27 Miscellaneous Dx PT Eval Objective Objective Windlass: + Outpatient Therapy Assessment Impairments Problems/Impairmments Palpation Tenderness,Impaired Range of Motion,Impaired Strength,Impaired Gait Pattern ,Impaired Standing,Impaired Household Care,Impaired Stair Climbing,Impaired Squatting, Impaired Balance,Subjective C/ O Pain Prognosis Rehab Potential Good Comment w HEP compliance Clinical Impression Consistent with Diagnosis Yes Consistent with Traumatic PF tear of R foot Short Term Goals Number of Weeks 4 Decreased Palpation Tenderness Yes: 2-3/4 to TTP assessment above Increase Range of Motion Yes: Improve DF to 12 degrees actively Increase Strength Yes: 3+/5 to R ankle Improve LEFI Score Yes: >37 Decrease Subjective C/O Pain Yes: 5/10 with above assessment Patient to be Ind w/ HEP Yes Talent Advisor Goals Number of Weeks 8 Decreased Palpation Tenderness Yes: 0-1/4 to TTP assessment above Increase Range of Motion Yes: Improve Active DF to 15 Increase Strength Yes: 4+/5 to R ankle globally Improve Gait Pattern without Assistive Yes: Normalized gait mechanics Device Improve Ability to Climb Stairs Yes: Flight of stairs with reciprocal stepping pattern Improve Balance Yes: TS on even surface for 30s Improve LEFI Score Yes: >50 Decrease Subjective C/O Pain Yes: 2-10 with above assessment Patient to be Ind w/ HEP Yes Outpatient Therapy Plan of Care Treatment Plan May Include Therapeutic Exercise Including Home Yes Exercise Program Manual Therapy Techniques Yes Neuromuscular Re-education Yes Therapeutic Activities to Return to Yes Previous Functional/Work Level Gait Training Yes ADL/Self Care Education Yes Dry Needling Yes Thermal Modalities Yes Electrical Stimulation Yes Ultrasound/Phonophoresis Yes Iontophoresis Yes Orthotics/Bracing/Splinting Yes Massage Yes Manual Lymphatic Drainage Yes Eval/Re-Eval Yes Frequency Times per week 2 Duration Number of Weeks 8 Addendums This patient is a candidate for social No or vocational rehab? Patient/Guardian verbally acknowledges Yes understanding of treatment program and consents to further treatment? Patient/Guardian verbally acknowledges Yes understanding of diagnosis, prognosis and goals for treatment? Eval Complexity PT Charges 37088 - Moderate Complexity Shoulder/Elbow Eval Shoulder Objective Measurements Elbow Objective Measurements PHYSICIAN CERTIFICATION: I certify the specified therapy services for Onelia Almazan are required, authorized, and reviewed every 30 days.
== END 2025-03-31 23:59 | disposition home or self-care (01) ==
LOC: PT 10:59
PROVIDERS: PCP Nurse Practitioner Family; Visit Provider Podiatrist
DX: S93.691A Other sprain of right foot, initial encounter (principal); W00.0XXA Fall on same level due to ice and snow, initial encounter
CPT/HCPCS: 97163

== ENCOUNTER → 2025-04-10 14:07 | Outpatient (CLI) | payer OTHER, SELFPAY ==
--- OUTSIDE RECORDS SUMMARY | 2025-04-10 14:10 | XMS_ITS | Data Portability ---
Author Organization [place] - [facility] - [facility] MIGUEL Lindquist ADMIN Address [address] [place] [address] Assessment Encounter Date Assessment Date Assessment LastModified [...] f/u -Repeat colonoscopy due 09/2027 for surveillance [email or web address] Not available 10/26/2022 10:56:26 12/05/2022 12/05/2022 57-year-old eulalio smith with fecal urgency and diarrhea. No etiology on colonoscopy with random colon biopsies. She may suffer from IBS-D. Dicyclomine was not helpful. -I will obtain a KUB (to be done at [facility]). If she appears constipated, will start laxative therapy. -If KUB unremarkable, will plant to start Xifaxan TID x2 weeks. -Continue PPI for heartburn. -Consider celiac serologies at f/u -Repeat colonoscopy due 09/2027 for surveillance [email or web address] Not available 12/05/2022 14:48:43 01/16/2023 01/16/2023 57-year-old [...] right meniscus injury. Follow-up in 3 months Not available 01/16/2023 13:41:39 04/18/2023 04/18/2023 57-year-old [...] Xifaxan. Patient requests this be sent to [facility]. -Will notify patient if constipation is shown on x-ray. Will advise MiraLax purge to relieve constipation. Discussed this with patient in office today. 4) Heartburn -Continue omeprazole 2 week phone follow-up [email or web address] Not available 04/18/2023 11:24:34 05/26/2023 05/26/2023 57-year-old eulalio smith s/p choleycystectomy at [facility] 04/2023 with chronic diarrhea. No etiology found [...] patient states she will follow-up as needed Not available 05/26/2023 11:31:46 Plan of Treatment Reminders Order Date Submit Date Provider Last Modified By Organization Details Last Modified Time Details Appointments None recorded. Lab None recorded. Referral None recorded. Procedures None recorded. Surgeries None recorded. Imaging XR, abdomen - Please evaluate stool load for possible constipati on. 2022 023 [email or web address] [facility] (X-Ray), [address] [facility], [place], [address], 3 11:28:37 XR, kidney + ureter + bladder 2022 023 [facility] (X-Ray), [address] [facility] [address], [place], [address], 3 13:58:58 Medication Orders colestipol 1 gram tablet 2022 [facility]23 [facility] [address] [place], [address], 3 11:30:39 cyclobenza jarett 10 mg tablet 2022 023 [facility], [address] [place], [address], 3 11:48:43 Xifaxan 550 mg tablet 2022 023 [facility], [address] [place], [address], 3 11:10:51 dicyclomin e 20 mg tablet 2021 022 [facility], [address] [place], [address], 3 11:48:41 Patient TargetsNo targets recorded. Patient Instructions Encounter Date Encounter Id Patient Instructions Last Modified By Organization Details Last Modified Time 01/16/2023 [id number] DATE OF OPERATION: 09/27/2022 SURGEON: Glenn Dacosta [...] adenoma. Negative for carcinoma or high-grade dysplasia. [email or web address] Not available 01/16/2023 13:44:23 04/18/2023 [id number] DATE OF OPERATION: 09/27/2022 SURGEON: Glenn Dacosta [...] adenoma. Negative for carcinoma or high-grade dysplasia. [email or web address] Not available 04/17/2023 13:44:01 05/26/2023 [id number] DATE OF OPERATION: 09/27/2022 SURGEON: Glenn Dacosta [...] adenoma. Negative for carcinoma or high-grade dysplasia. [email or web address] Not available 05/26/2023 08:56:41 Reason for Referral [...] FINAL RESUL TS REPOR PAOLA. Not Available [facility] ([facility]) [address] [place], [address], 09/27/2022 11:40:41 09/27/20 22 09/27/2022 GASTR OINTE LENNOX L PANEL ,STL PCR C difficile toxin A/B NOT DETECT ED not detect ed Not Available [facility] ([facility]) [address] [place], [address], 09/27/2022 11:40:41 09/27/20 22 09/27/2022 GASTR OINTE LENNOX L PANEL ,STL PCR plesiomonas shigelloides NOT DETECT ED Not Available [facility] ([facility]) [address] [place], [address], 09/27/2022 11:40:41 09/27/20 22 09/27/2022 GASTR OINTE LENNOX L PANEL ,STL PCR salmonella NOT DETECT ED not detect ed Not Available [facility] ([facility]) [address] [place], [address], 09/27/2022 11:40:41 09/27/20 22 09/27/2022 GASTR OINTE LENNOX L PANEL ,STL PCR vibrio NOT DETECT ED not detect ed Not Available [facility] ([facility]) [address], [place], [address], 09/27/2022 11:40:41 09/27/20 22 09/27/2022 GASTR OINTE LENNOX L PANEL ,STL PCR vibrio cholerae NOT DETECT ED not detect ed Not Available [facility] ([facility]) [address] [facility], [place], [address], 09/27/2022 11:40:41 09/27/20 22 09/27/2022 GASTR OINTE LENNOX L PANEL ,STL PCR yersinia enterocoliti ca NOT DETECT ED not detect ed Not Available [facility] ([facility]) [address] [facility], [place], [address], 09/27/2022 11:40:41 09/27/20 22 09/27/2022 GASTR OINTE LENNOX L PANEL ,STL PCR enteroaggreg ative E coli NOT DETECT ED not detect ed Not Available [facility] ([facility]) [address], [place], [address], 09/27/2022 11:40:41 09/27/20 22 09/27/2022 GASTR OINTE LENNOX L PANEL ,STL PCR enteropathog enic E coli NOT DETECT ED not detect ed Not Available [facility] ([facility]) [address] [facility], [place], [address], 09/27/2022 11:40:41 09/27/20 22 09/27/2022 GASTR OINTE LENNOX L PANEL ,STL PCR enterotoxige olaf E coli lt/st NOT DETECT ED not detect ed Not Available [facility] ([facility]) [address] [facility], [place], [address], 09/27/2022 11:40:41 09/27/20 22 09/27/2022 GASTR OINTE LENNOX L PANEL ,STL PCR shiga-toxin- producing E coli NOT DETECT ED not detect ed Not Available [facility] ([facility]) [address] [facility], [place], [address], 09/27/2022 11:40:41 09/27/20 22 09/27/2022 GASTR OINTE LENNOX L PANEL ,STL PCR E coli O157 N/A not detect ed Not Available [facility] ([facility]) [address] [facility], [place], [address], 09/27/2022 11:40:41 09/27/20 22 09/27/2022 GASTR OINTE LENNOX L PANEL ,STL PCR shigella/ent eroinvasive E coli NOT DETECT ED not detect ed Not Available [facility] ([facility]) [address] [facility], [place], [address], 09/27/2022 11:40:41 09/27/20 22 09/27/2022 GASTR OINTE LENNOX L PANEL ,STL PCR cryptosporid ium NOT DETECT ED not detect ed Not Available [facility] ([facility]) [address] [facility], [place], [address], 09/27/2022 11:40:41 09/27/20 22 09/27/2022 GASTR OINTE LENNOX L PANEL ,STL PCR cyclospora cayetanensis NOT DETECT ED not detect ed Not Available [facility] ([facility]) [address] [place], [address], 09/27/2022 11:40:41 09/27/20 22 09/27/2022 GASTR OINTE LENNOX L PANEL ,STL PCR entamoeba histolytica NOT DETECT ED not detect ed Not Available [facility] ([facility]) [address] [place], [address], 09/27/2022 11:40:41 09/27/20 22 09/27/2022 GASTR OINTE LENNOX L PANEL ,STL PCR giardia lamblia NOT DETECT ED not detect ed Not Available [facility] ([facility]) [address] [facility], [place], [address], 09/27/2022 11:40:41 09/27/20 22 09/27/2022 GASTR OINTE LENNOX L PANEL ,STL PCR adenovirus F NOT DETECT ED not detect ed Not Available [facility] ([facility]) [address] [facility], [place], [address], 09/27/2022 11:40:41 09/27/20 22 09/27/2022 GASTR OINTE LENNOX L PANEL ,STL PCR astrovirus NOT DETECT ED not detect ed Not Available [facility] ([facility]) [address] [facility], [place], [address], 09/27/2022 11:40:41 09/27/20 22 09/27/2022 GASTR OINTE LENNOX L PANEL ,STL PCR norovirus GI/gii NOT DETECT ED not detect ed Not Available [facility] ([facility]) [address] [facility], [place], [address], 09/27/2022 11:40:41 09/27/20 22 09/27/2022 GASTR OINTE LENNOX L PANEL ,STL PCR rotavirus A NOT DETECT ED not detect ed Not Available [facility] ([facility]) [address] [facility], [place], [address], 09/27/2022 11:40:41 09/27/20 22 09/27/2022 GASTR OINTE [...] rever se trans cript ase Not Available [facility] ([facility]) [address], [place], [address], 09/27/2022 11:40:41 12/07/19 23 12/07/2022 XR, kidne y + urete r + bladd er No observ ation record ed. [email or web address] [facility] [address], [place], [address], 12/14/2022 15:52:12 Result Notes None recorded. Problems Name Problem SNOMED Code Status Onset Date Resolution Date Notes Provider Name and Address Organization Details Recorded Time Irritable bowel syndrome with diarrhea 505273341 Active 2021 Emerson Mcdaniel PA-C [address], [place], [address] , [facility] & [place] 2 14:13:05 Heartburn 68186225 Active 2021 Emerson Mcdaniel PA-C [address], [place], [address] , [facility] - [facility] & [place] 2 14:13:34 Musculoskelet al pain 068981056 Active 2022 Emerson Mcdaniel PA-C [address], [place], [address] , [place] - [facility] [place] & [place] 13:34:00 Problem Notes None recorded. Procedures Surgical History None recorded. Imaging Results Imaging Date Name Status LastModified by Organiz ation Details LastModified Time 12/07/2022 XR, kidney + ureter + bladder completed [email or web address] [facility] [address], [place], [address], 12/14/2022 15:52:12 Procedure Notes None recorded. Medical [...] Address Organization Details Last Updated DateTime 12/05/2022 536469.88 g 103 /min 161 mm[Hg] 93 mm[Hg] Yolanda Jordan [place] - [facility] & [place] 12/05/2022 14:12:49 Date Recorded Body weight Heart rate Systolic blood pressure Diastolic blood pressure Provider Name and Address Organization Details Last Updated DateTime 01/16/2023 170192.28 g 91 /min 121 mm[Hg] 80 mm[Hg] Yolanda Contreras [facility] & [place] 01/16/2023 13:09:35 Date Recorded Body weight Body mass index (BMI) Body height Oxygen saturation Oxygen saturation in Arterial blood by Pulse oximetry Heart rate Systolic blood pressure Diastolic blood pressure Provider Name and Address Organization Details Last Updated DateTime 3 413035. 91 g 34.6 kg/m2 170.18 cm 95 % 95 % 86 /min 125 mm[Hg] 87 mm[Hg] Bianca Contreras [facility] & [place] 3 10:19:27 Date Recorded Body weight Heart rate Systolic blood pressure Diastolic blood pressure Provider Name and Address Organization Details Last Updated DateTime 10/24/2022 728803.28 g 80 /min 146 mm[Hg] 80 mm[Hg] Yolanda Contreras [facility] & [place] 10/24/2022 13:33:24 Social History None recorded. Functional Status Question Answer Note LastModified by Organization D etails LastModified Time What is your level of alcohol consumption? None [email or web address] Information not available 12/05/2022 Mental Status None recorded. Family History Nothing Reported. Medical History No medical history recorded. Gynecological HistoryNo gynecological history recorded. Obstetrics History GPAL:G 0 P 0 0 0 0 Past Encounters Encounter ID Performer Location Encounter Start Date Encounter Closed Date Diagnosis/Indication Diagnosis SNOMED-CT Code Diagnosis ICD10 Code Diagnosis Note [id number] Emerson Mcdaniel PA-C [facility] [address] [address] 10/24/2022 13:20:06 10/24/2022 14:13:38 Irritable bowel syndrome with diarrhea 618271754 K58.0 History of polyp of colon 631029524 Z86.010 Heartburn 71380504 R12 [id number] Emerson Mcdaniel PA-C [facility] [address] [address] 12/05/2022 13:57:51 12/05/2022 14:45:08 Irritable bowel syndrome with diarrhea 762071436 K58.0 Heartburn 58111992 R12 History of polyp of colon 932499357 Z86.010 Surveillan ce colonoscop y due 09/2027 [id number] Emerson Mcdaniel PA-C [facility] [place] [address] 01/16/2023 13:02:07 01/16/2023 13:55:54 Irritable bowel syndrome with diarrhea 123615336 K58.0 History of polyp of colon 554476923 Z86.010 Heartburn 50367014 R12 Musculoskeletal pain 279 733851 M79.10 [id number] Glenn Dacosta MD [facility] [place] [address] 04/18/2023 10:07:20 04/18/2023 10:46:37 Irritable bowel syndrome with diarrhea 116422036 K58.0 History of polyp of colon 799499637 Z86.010 Heartburn 87968032 R12 Alteration in bowel elimination: constipation 37432990 K59.00 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 [id number] Glenn Dacosta MD [facility] [address] [address] 05/26/2023 11:01:57 05/26/2023 11:20:04 Irritable bowel syndrome with diarrhea 486673735 K58.0 History of polyp of colon 322821934 Z86.010 Heartburn 50309830 R12 Alteration in bowel elimination: constipation 10119364 K59.00 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 History of cholecystectomy 953739756 Z90.49 Health Concerns Section Related Observation LastModified by Organization Detai ls LastModified Time None Recorded Concern Status LastModified by Organization Details LastModified Time None Recorded Advance Directives Directive None Recorded Payers Insurance Date Sequence Insurance Name Policy Number Policy Hernandez Covered Member ID Hernandez Member ID Guarantor Name 10/24/2022 1 [facility] Onelia Almazan [id number] Onelia Almazan 05/23/2023 1 [facility] ([place] DASHAWN Almazan [id number] Onelia Almazan Notes Date Note Type Note [...] effect. Emerson Mcdaniel PA-C [address], [place], [address], [facility] & [place] 10/26/2022 10:57:00 12/05/2022 text/html PREVIOUS ( 2): [...] year. Emerson Mcdaniel PA-C [address], [place], [address], [facility] & [place] 12/05/2022 14:50:11 01/16/2023 text/html PREVIOUS ( 3): [...] denies hematemesis or hematochezia. Emerson Mcdaniel PA-C [address] , [place], [address], [place] [facility] [place] & [place] 01/16/2023 13:44:32 04/18/2023 text/html PREVIOUS ( 3): [...] vomiting, hematemesis or hematochezia. COREY BASURTO MSN, GAME DESIGNER, POWERHOUSE MECHANIC SUPERVISOR-C [address] , [place], [address], [place] [facility] [place] & [place] 04/18/2023 11:29:48 05/26/2023 text/html PREVIOUS ( 3): [...] patient states she was recently hospitalized at [facility] on 05/01/2023 for abdominal pain. She states [...] diagnosis, specifically as above. COREY BASURTO MSN, GAME DESIGNER, POWERHOUSE MECHANIC SUPERVISOR-C [address] [facility], [place], [address], [facility] - [place] - [place] & [place] 05/26/2023 11:35:59 OBGyn Episode No OBEpisode recorded.
== END ==
LOC: SL 14:09
PROVIDERS: PCP Nurse Practitioner Family; Visit Provider Nurse Practitioner Family
DX: G47.34 Idiopathic sleep related nonobstructive alveolar hypoventilation (principal)
CPT/HCPCS: 94762

== ENCOUNTER 2025-08-08 07:11 | Day surgery (SDC) | payer OTHER, SELFPAY ==
[2025-08-01 13:12] VITALS: BMI 34.4
--- NOTE | 2025-08-08 06:10 | P.HP_ITS ---
HPI HPI HPI: Patient is a 60-year-old female from [facility] who presents for colonoscopy. She has a history of complex regional pain syndrome, chronic kidney disease, obstructive sleep apnea, tobacco abuse, diabetes, hypertension. I have previously seen her for cholecystectomy. Patient states that she has had a colonoscopy not too far in the distant past. However, I have no record of any colonoscopy at this facility and the current or previous electronic medical record. [facility] Disclaimer: The information contained in this section may have been updated after the patient was seen, as this information can be updated by other users. Medical History (Updated 08/08/25 @ 08:35 by Kalyan Velásquez MD) Allergic rhinitis Asthma RLS (restless legs syndrome) Helicobacter pylori (H. pylori) Colon cancer screening Vitamin D deficiency Sjogrens syndrome Onychomycosis High blood pressure Combined hyperlipidemia associated with type 2 diabetes mellitus Migraine headache without aura Diabetes mellitus Surgical History Hx of elbow surgery Hx of neck surgery History of colonoscopy H/O arthroscopic knee surgery History of laparoscopic cholecystectomy S/P laparoscopic cholecystectomy Family History Other Cancer Diabetes Social History Smoking Status: Current some day smoker alcohol intake: current alcohol intake frequency: a few times a month substance use type: denies use current occupational status: employed Travel in the last 8 weeks?: None household members: significant other housing: house marital status: single 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 [employer] Have you lived/traveled outside US in past 30 days?: No Contact w/someone who lives/traveled outside US past 30 days?: No Exposure to someone with infectious disease in past 14 days?: No Do you have a fever (greater than 100.4 F or 38 C)?: No Have you tested positive for COVID-19?: No Exposed to someone with COVID-19 in past 14 days?: No Do you have a sore throat?: No Do you have a cough?: No Do you have any weakness?: No Do you have any diarrhea?: No Are you experiencing any unusual bleeding?: No Do you have any muscle aches/pain?: No Do you have any abdominal pain?: No Are you experiencing loss of taste or smell?: No Other Medical History Have you received the Flu Vaccine for this season: No Have you received the Pneumonia Vaccine: Yes Meds Home Medications and Allergies Home Medications ?Medication ?Instructions ?Recorded ?Confirmed ?Type potassium gluconate 550 mg (90 mg) 550 mg PO DAILY 08/08/25 History tablet hydrochlorothiazide 12.5 mg capsule See Rx Instruction s .Route 08/26/24 08/08/25 Rx .COMPLEX #90 caps coenzyme Q10 30 mg capsule 30 mg PO DAILY 09/20/24 History ubrogepant 100 mg tablet (Ubrelvy) See Rx Instructions .Route 11/27/24 08/08/25 Rx .COMPLEX #10 tabs cholecalciferol (vitamin D3) 1,250 See Rx Instructions .Route 01/27/25 08/08/25 Rx mcg (50,000 unit) capsule .COMPLEX #4 caps ibuprofen 800 mg tablet See Rx Instructions .Route 0 02/11/25 08/08/25 Rx .COMPLEX #90 tabs cholecalciferol (vitamin D3) 50 See Rx Instructions .R oute 02/27/25 08/08/25 Rx mcg (2,000 unit) capsule (Vitamin .COMPLEX #30 caps D3) diclofenac sodium 1 % topical gel 4 g topical QID PRN pain 30 days 02/27/25 08/08/25 Rx (Voltaren Arthritis Pain) #100 grams semaglutide 1 mg/dose (4 mg/3 mL) See Rx Instructions .Route 02/27/25 08/08/25 Rx subcutaneous pen injector (Ozempic) .COMPLEX #9 mL ammonium lactate 12 % topical cream 1 applic topical B ID dry skin 90 03/20/25 08/08/25 Rx days #385 grams glimepiride 2 mg tablet See Rx Instructions .Route 0 03/27/25 08/08/25 Rx .COMPLEX #90 tabs rosuvastatin 5 mg tablet See Rx Instructions .Route 0 05/05/25 08/08/25 Rx .COMPLEX #90 tabs albuterol sulfate 90 mcg/actuation 2 inh inhalation Q6 H PRN shortness 05/06/25 08/08/25 Rx aerosol inhaler (Ventolin HFA) of breath or wheezing # 8.5 grams fluticasone propionate 50 See Rx Instructions .Route 0 05/06/25 08/08/25 Rx mcg/actuation nasal .COMPLEX #16 grams spray,suspension dapagliflozin propanediol 10 mg 10 mg PO DAILY #30 tab s 05/15/25 08/08/25 Rx tablet (Farxiga) gabapentin enacarbil 600 mg 600 mg PO HS RLS #30 tabs 05/15/25 08/08/25 Rx tablet,extended release (Horizant ER) lidocaine 4 % topical cream 1 applic topical BID 30 da ys #30 05/26/25 08/08/25 Rx grams metformin 500 mg tablet See Rx Instructions .Route 0 05/28/25 08/08/25 Rx .COMPLEX #120 tabs cetirizine 10 mg tablet See Rx Instructions .Route 0 06/02/25 08/08/25 Rx .COMPLEX #30 tabs aspirin 81 mg tablet,delayed See Rx Instructions .Rout e 07/22/25 08/08/25 Rx release .COMPLEX #90 tabs lisinopril 5 mg tablet See Rx Instructions .Route 0 07/22/25 08/08/25 Rx .COMPLEX #90 tabs omeprazole 40 mg capsule,delayed See Rx Instructions . Route 07/22/25 08/08/25 Rx release .COMPLEX #90 caps estradiol 0.01% (0.1 mg/gram) 1 appful vaginal DAILY # 42.5 grams 07/23/25 08/08/25 Rx vaginal cream bupropion HCl 150 mg 24 hr tablet, See Rx Instructions .Route .COMPLEX 08/01/25 08/08/25 History extended release (Wellbutrin XL) colestipol 1 gram tablet (Colestid) See Rx Instruction s .Route .COMPLEX 08/08/25 08/08/25 History topiramate 25 mg sprinkle capsule See Rx Instructions .Route .COMPLEX 08/08/25 08/08/25 History (Topamax) New Prescriptions to Start Prescriptions: Allergies Allergy/AdvReac Type Severity Reaction Status Date / Time Iodinated Contrast Media Allergy Intermediate Rash Verified 08/08/25 07:29 Exam Constitutional Constitutional: no acute distress *Routine HEENT Exam Head: Present normocephalic Eye: Present EOMI and PERRL ENT: Present mucous membranes moist *Routine Neck Exam Neck: Present supple; Absent lymphadenopathy *Routine Respiratory Exam Respiratory: Present CTA bilaterally *Routine Cardiovascular Exam Cardiovascular: Present RRR *Routine Abdominal Exam Abdominal: Present soft and normoactive bowel sounds; Absent tenderness *Routine Rectal Exam Rectal:: deferred *Routine Genitalia Exam Genitalia:: deferred *Routine Extremities Exam Extremities: Absent cyanosis, clubbing or edema *Routine Skin Exam Skin: Present warm; Absent rash *Routine Neurological Exam Neurological: Present alert and oriented X3 Assessment and Plan *Assessment and plan (1) Encounter for screening colonoscopy: Status: Acute Category: Medical Code(s): Z12.11 - Encounter for screening for malignant neoplasm of colon Plan Colonoscopy
[2025-08-08] MEDS: LACTATED RINGERS 1000ML 1,000 ML 50 ML IV (07:46)
[2025-08-08 07:47] VITALS: BP 161/68; PULSE 87; RESP 18; TEMP 36.3; O2SAT 96
--- NOTE | 2025-08-08 07:55 | EXP.ANES.CKL ---
[facility] Disclaimer: The information contained in this section may have been updated after the patient was seen, as this information can be updated by other users. Medical History Allergic rhinitis Asthma RLS (restless legs syndrome) Helicobacter pylori (H. pylori) Colon cancer screening Vitamin D deficiency Sjogrens syndrome Onychomycosis High blood pressure Combined hyperlipidemia associated with type 2 diabetes mellitus Migraine headache without aura Diabetes mellitus Surgical History Hx of elbow surgery Hx of neck surgery History of colonoscopy H/O arthroscopic knee surgery History of laparoscopic cholecystectomy S/P laparoscopic cholecystectomy Family History Other Cancer Diabetes Social History Smoking Status: Current some day smoker alcohol intake: current alcohol intake frequency: a few times a month substance use type: denies use current occupational status: employed Travel in the last 8 weeks?: None household members: significant other housing: house marital status: single 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 [employer] Have you lived/traveled outside US in past 30 days?: No Contact w/someone who lives/traveled outside US past 30 days?: No Exposure to someone with infectious disease in past 14 days?: No Do you have a fever (greater than 100.4 F or 38 C)?: No Have you tested positive for COVID-19?: No Exposed to someone with COVID-19 in past 14 days?: No Do you have a sore throat?: No Do you have a cough?: No Do you have any weakness?: No Do you have any diarrhea?: No Are you experiencing any unusual bleeding?: No Do you have any muscle aches/pain?: No Do you have any abdominal pain?: No Are you experiencing loss of taste or smell?: No [facility] Anesthesia Checklist Patient Identification Patient Identification: Arm Band Structural Data Admitted From: Home Planned Operative Procedure/s: Colonoscopy Consent for Planned Operative Procedure(s) Verified: Yes Verified Documents: Surgical Consent and History and Physical NPO Status Verified Time NPO: 00:00 Additional verifications Anesthesia Reactions: No Airway Assessment Mallampati Score:: Class II C-Spine Mobility Assessed: Yes TMJ Mobility Assessed: Yes Dentition: Edentulous Neurological Assessment Level of Consciousness: Awake, Alert and Appropriate Anesthesia Plan Anesthesia Risk discussed: Yes Anesthesia Plan: Verified ASA Class: II Anesthesia Type: MAC
[2025-08-08 08:33] VITALS: BP 87/61; PULSE 74; RESP 14; TEMP 36.6; O2SAT 91
--- NOTE | 2025-08-08 08:36 | P.PCN_ITS ---
Procedure: Date: 08/08/25 Patient Date of :: 1965 Procedure Performed:: Total colonoscopy to terminal ileum with polypectomy using biopsy forceps Indications:: Patient presents for colonoscopy. She states that she did have a previous colonoscopy. Details unknown. No record at this facility. Performing Provider:: Kalyan Velásquez MD Referring Provider:: Ryan Stack Sedation:: MAC sedation Procedure:: Patient history was obtained and appropriate physical examination was performed. Patient's medications and allergies were reviewed. Informed consent was obtained after explaining the benefits, alternatives, and risks of the procedure including, but not limited to, bleeding, perforation, missed lesions, and adverse reaction to anesthesia medications. Patient was transported to endoscopy procedure room. Patient was connected to monitoring devices. Throughout the procedure the patient's blood pressure, pulse, and oxygen saturations were monitored continuously. Patient identification and planned procedure were verified by the staff. Patient was positioned in lateral decubitus position. Digital anorectal exam was performed. Variable stiffness Olympus colonoscope was inserted and adva nced under direct visualization to the cecum. Adequacy of the colonic preparation was noted. The colonoscope was advanced a short distance into the terminal ileum. The colonoscope was then slowly withdrawn while carefully examining the color, texture, anatomy, and integrity of the mucosoa circumferentially. Within the rectum retroflexion was performed. Colonoscope was then withdrawn. Impression: There was some opaque liquid stool throughout the colon. This was able to be mostly cleared with high-volume trans colonoscopic irrigation and suctioning. In the descending colon about 40 cm from the anal verge there was a sessile possibly adenomatous small polyp removed with biopsy forceps. . Findings:: Diminutive sessile polyp descending colon Recommendations:: Repeat colonoscopy pending pathology. Likely 5 years Complications:: None immediately apparent Estimated blood obtained (mL): 1 Colonoscopy Component Colonoscopy Component Was a colonoscopy performed during today's procedure?: Yes Recommended follow up colonoscopy of at least 10 years?: No If no, follow up colonoscopy recommended in ___ years?: 5 Reason for not recommending >/= 10 yr follow-up interval?: Polyp
[2025-08-08 08:43] VITALS: BP 99/52; PULSE 68; RESP 16; O2SAT 94
[2025-08-08 08:53] VITALS: BP 111/61; PULSE 73; RESP 16; O2SAT 95
[2025-08-08 09:03] VITALS: BP 108/69; PULSE 76; RESP 18; O2SAT 95
[2025-08-08 09:20] VITALS: BP 113/59; PULSE 75; RESP 18; TEMP 36.6; O2SAT 96
[2025-08-09 20:40] LABS: POC Glucose,Bedside 176 gm/dL (70-110)
== END 2025-08-08 09:20 | disposition home or self-care (01) ==
PROVIDERS: PCP Nurse Practitioner Family; Visit Provider Surgery
PROC: 0DJD8ZZ Inspection of Lower Intestinal Tract, Via Natural or Artificial Opening Endoscopic (ICD-10-PCS; CPT 45380; principal; 2025-08-08 08:30)
DX: Z12.11 Encounter for screening for malignant neoplasm of colon (principal); K63.5 Polyp of colon; E78.5 Hyperlipidemia, unspecified; J45.909 Unspecified asthma, uncomplicated; G43.909 Migraine, unspecified, not intractable, without status migrainosus; E11.22 Type 2 diabetes mellitus with diabetic chronic kidney disease; I12.9 Hypertensive chronic kidney disease with stage 1 through stage 4 chronic kidney disease, or unspecified chronic kidney disease; N18.9 Chronic kidney disease, unspecified; F17.200 Nicotine dependence, unspecified, uncomplicated; Z91.041 Radiographic dye allergy status; Z79.85 Long-term (current) use of injectable non-insulin antidiabetic drugs; Z79.84 Long term (current) use of oral hypoglycemic drugs; Z79.51 Long term (current) use of inhaled steroids; Z79.899 Other long term (current) drug therapy
CPT/HCPCS: 45380; 82962; J2003; J2704; J7120

== ENCOUNTER 2025-08-25 15:52 | Outpatient (CLI) | payer OTHER, SELFPAY ==
--- OUTSIDE RECORDS SUMMARY | 2025-07-11 16:30 | XMS_ITS | Encounter Summary ---
Author Organization [facility] Address [address] [place] [address] Care Team Providers Care Clinical Program Consultant Name Role Phone Ryan Stack NP Primary Care Provider [phone] Reason for Visit * MRI/CAT Scan (Routine) - Pending Review Specialty Diagnoses / Procedures Referred By Contac t Referred To Contact Radiology Diagnoses Pain in right foot Other sprain of unspecified foot, initial encounter Strain of right Achilles tendon, subsequent encounter Procedures MRI FOOT RIGHT WO CONTRAST Provider, Not In Epic Referral ID Status Reason Start Date Expiration Date V isits Requested Visits Authorized [id number] Pending Review 07/02/2025 07/02/2026 1 1 Encounter Details Date Type Department Care Team (Latest Contact Info) Description 07/11/2025 4:30 PM EDT Ancillary Procedure [facility] MRI [address] [facility] [address] [place] [address] Pain in right foot; Other sprain of unspecified foot, initial encounter; Strain of right Achilles tendon, subsequent encounter Social History Tobacco Use Types Packs/Day Years Used Date Smoking Tobacco: Every Day Cigarettes Smokeless Tobacco: Never Alcohol Use Standard Drinks/Week Comments No 0 (1 standard drink = 0.6 oz pur e alcohol) Comments No Sex and Gender Information Value Date Recorded Sex Assigned at Not on file Legal Sex Female 1:30 PM EDT Gender Identity Not on file Sexual Orientation Not on file documented as of this encounter Plan of Treatment Not on file documented as of this encounter Procedures Procedure Name Priority Date/Time Associated Diagnosis Comments MRI FOOT RIGHT WO CONTRAST Routine 07/11/2025 12:59 PM EDT Pain in right foot Other sprain of unspecified foot, initial encounter Strain of right Achilles tendon, subsequent encounter documented in this encounter Results * MRI FOOT RIGHT WO CONTRAST (07/11/2025 12:59 PM EDT) Narrative [facility] - 07/11/2025 12:59 PM EDT Please see the scanned MRI report associated with this order on the Imaging tab of the patient's chart. us Not In [facility] Provider IMG MRI ORDERABLES Final Re sult [facility] documented in this encounter Visit Diagnoses Diagnosis Pain in right foot Pain in limb Other sprain of unspecified foot, initial encounter Strain of right Achilles tendon, subsequent encounter documented in this encounter Care Teams Clinical Program Consultant Relationship Specialty Start Date End Date Ryan Stack NP [address] [place] [phone] PCP - General Nurse Practitioner-Family 12/22/22 documented as of this encounter
[2025-08-25 20:27] LABS: Hematocrit 44.3 % (37.0-47.0); Hemoglobin 14.9 g/dL (12.2-16.2); Immature Granulocytes % 0.3 %; Mean Corpuscular HGB Conc 33.6 g/dL (31.8-35.4); Mean Corpuscular Hemoglobin 30.8 pg (27.0-31.2); Mean Corpuscular Volume 91.7 fl (81-99); Nucleated Red Blood Cells % 0 %; Platelet Count 215 K/mm3 (142-424); Red Blood Count 4.83 M/mm3 (4.20-5.40); Red Cell Distribution Width-SD 43.0 fL; White Blood Count 9.0 K/mm3 (4.8-10.8)
[2025-08-25 20:58] LABS: Alanine Aminotransferase 39 U/L (12-78); Albumin Level 4.3 g/dl (3.5-5.0); Albumin/Globulin Ratio 1.5 (1.1-1.8); Alkaline Phosphatase 93 U/L (38-126); Anion Gap 18.8 mEq/L (5-15); Aspartate Amino Transferase 42 U/L (14-36); Bilirubin,Total 0.5 mg/dl (0.2-1.3); Blood Urea Nitrogen 15 mg/dl (7-17); Calcium 9.2 mg/dl (8.4-10.2); Carbon Dioxide 23 mmol/L (22.0-30.0); Chloride 100 mmol/L (98-107); Cholesterol 111 mg/dl (140-200); Creatinine,Serum 0.80 mg/dl (0.52-1.04); Estimated Glomerular Filt Rate 73 ml/min (>60); GFR (African American) 89 ML/MIN (>60); Globulin 2.9 g/dL (1.3-3.2); Glucose 224 mg/dl (74-100); HDL Cholesterol 25 mg/dl (40-60); Potassium 3.8 mmoL/L (3.5-5.1); Sodium 138 mmol/L (136-145); Total Protein,Serum 7.2 g/dl (6.3-8.2); Triglycerides 263 mg/dl (30-150)
[2025-08-25 21:18] LABS: Hemoglobin A1C 7.3 % (4.0-6.0)
--- OUTSIDE RECORDS SUMMARY | 2025-08-26 01:26 | XMS_ITS | Clinical Summary ---
Author Organization [facility] Address [address] [place] [address] Phone Care Team Providers Care Trust Clerk Name Role Phone Ryan Stack NP Primary Care Provider [phone] Allergies Active Allergy Reactions Criticality Noted Date Comments Iodinated Contrast Media Hives Medium 07/18/2022 MRI contrast; not sure about topical betadine ?? Medications Blood Sugar Diagnostic (FREESTYLE LITE STRIPS) [facility] Strip Test blood glucose. 6 Active buPROPion (WELLBUTRIN XL) 150 mg Oral Tablet Sustained Release 24 hr Take 150 mg by mouth daily. 2 Active cetirizine (ZYRTEC) 10 mg Oral Tablet Take 10 mg by mouth daily. 2 Active cevimeline (EVOXAC) 30 mg Oral Capsule Take 30 mg by mouth 3 times daily. 3 Active Cholecalciferol , Vitamin D3, 50 mcg (2,000 unit) Oral Capsule Take 1 Capsule by mouth daily. 2 Active dicyclomine (BENTYL) 20 mg Oral Tablet TAKE 1 TABLET BY MOUTH 3 TIMES DAILY BEFORE MEALS. 3 Active ergocalciferol (DRISDOL) 1,250 mcg (50,000 unit) Oral Capsule Take 1 Capsule by mouth once a week. 2 Active glimepiride (AMARYL) 2 mg Oral Tablet Take 2 mg by mouth daily. 2 Active hydroCHLOROthia zide (MICROZIDE) 12.5 mg Oral Capsule Take 12.5 mg by mouth daily. Patient thinks for swelling, not sure 3 Active lancets [facility] Test blood glucose. 5 Active metFORMIN (GLUCOPHAGE) 500 mg Oral Tablet Take 1,000 mg by mouth 2 times daily. 2 Active nicotine (NICODERM CQ) 21 mg/24 hr TD Patch [address] 1 Patch onto the skin daily. Active omeprazole (PRILOSEC) 40 mg Oral Capsule, Delayed Release(E.C.) Take 40 mg by mouth daily. 3 Active pantoprazole (PROTONIX) 40 mg Oral Tablet, Delayed Release (E.C.) Take 40 mg by mouth. 6 Active XIFAXAN 550 mg Oral Tablet TAKE 1 TABLET 3 TIMES A DAY BY MOUTH FOR 14 DAYS. 3 Active rosuvastatin (CRESTOR) 5 mg Oral Tablet Take 5 mg by mouth daily. 2 Active co-enzyme Q-10 30 mg Oral Capsule Take 100 mg by mouth daily. Active ubrogepant (UBRELVY) 100 mg Oral Tablet Take 1 Tablet by mouth as needed. 2 Active VENTOLIN HFA 90 mcg/actuation Inhl HFA Aerosol Inhaler Inhale 2 Puffs into the lungs as needed. 3 Active cyclobenzaprine (FLEXERIL) 10 mg Oral Tablet 1 Tablet nightly. 3 Active ADVAIR DISKUS 100-50 mcg/dose Inhl Disk with Device Inhale 1 Puff into the lungs 2 times daily. 3 Active OZEMPIC 0.25 mg or 0.5 mg(2 mg/1.5 mL) SubQ Pen Injector 1 Applicator once a week. Uses on Fridays 3 Active HORIZANT 300 mg Oral Tablet Sustained Release 1 Tablet nightly. 3 Active oxyCODONE (ROXICODONE) 5 mg Oral Tablet Take 1 Tablet by mouth every 8 hours as needed for Major Surgery/Trauma (G89.18). 10 Tablet 3 Active ondansetron (ZOFRAN) 4 mg Oral Tablet Take 1 Tablet by mouth every 8 hours as needed for Nausea. 10 Tablet 1 3 Active ibuprofen (ADVIL;MOTRIN) 800 mg Oral Tablet Take 1 Tablet by mouth every 8 hours as needed for Pain. 90 Tablet 2 5 Active Active Problems Problem Noted Date Diagnosed Date Acute medial meniscus tear of right knee 023 Acute medial meniscus tear of right knee 023 Overview (01/09/2023): Added automatically from request for surgery [id number] Chondromalacia of right patella 01/09/2023 Overview (01/09/2023): Added automatically from request for surgery [id number] Encounters Date Type Department Care Team Description 07/22/2025 Refill [facility] [address] [place] [address] Shubham Rivas PA Medication Refill 07/11/2025 4:30 PM EDT Ancillary Procedure [facility] [address] [facility] [address] [place] [address] Pain in right foot; Other sprain of unspecified foot, initial encounter; Strain of right Achilles tendon, subsequent encounter from Last 3 Months Surgical History Surgery Date Site/Laterality Comments NECK SURGERY 06/20/2022 - 07/20/2022 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 ARM SURGERY Right elbow fx repair; all hardware removed KNEE ARTHROSCOPY 02/02/2023 Knee/Right Right knee arthroscopic partial medial meniscectomy with arthroscopic chondroplasty; Surgeon: Toy Erazo MD; Location: [facility]; Service: Orthopedics Medical History Medical History Date Comments Diabetes mellitus (HCC) Dysphagia 1 time episode, no more issues H/O Sjogren's disease Heartburn Sleep apnea no machine Hyperlipidemia Headache migraines Shortness of breath in conjuncti on w/anxiety; has inhalers; no home O2 as of 01/27/23 Irritable bowel syndrome Social History Tobacco Use Types Packs/Day Years Used Date Smoking Tobacco: Every Day Cigarettes Smokeless Tobacco: Never Tobacco Cessation:Ready to Q uit: Not Asked; Counseling Given: Not Answered Alcohol Use Standard Drinks/Week Comments No 0 (1 standard drink = 0.6 oz pur e alcohol) Comments No Sex and Gender Information Value Date Recorded Sex Assigned at Not on file Legal Sex Female 1:30 PM EDT Gender Identity Not on file Sexual Orientation Not on file Last Filed Vital Signs Vital Sign Reading Time Taken Comments Blood Pressure 136/88 02/02/2023 4:15 PM EDT Pulse 76 02/02/2023 4:15 PM EDT Temperature 36.6 C (97.9 F) 02/02/2023 3:10 PM EDT Respiratory Rate 16 02/02/2023 4:15 PM EDT Oxygen Saturation 97% 02/02/2023 4:15 PM EDT Inhaled Oxygen Concentration - - Weight 100.8 kg (222 lb 3 oz) 02/02/2023 1:10 PM EDT Height 170.2 cm (5' 7 ) 02/02/2023 1:10 PM EDT Body Mass Index 34.8 02/02/2023 1:10 PM EDT Plan of Treatment Health Maintenance Due Date Last Done Comments Annual Wellness Exam 1968 Hepatitis C Screening 1983 DTaP/TDaP/Td (1 - Tdap) 1984 Pneumococcal Vaccine 50+ (1 of 2 - PCV) 1984 Cervical Cancer Screening 1986 Pap Smear 1986 HPV/Pap Cotest 1995 Cologuard 2010 Colon Cancer Screening 2010 Colonoscopy 2010 FIT 2010 Sigmoidoscopy 2010 Virtual Colonography 2010 Zoster (1 of 2) 2015 Breast Cancer Screening 11/17/2017 11/17/2015 Influenza Vaccine (#1) 2025 09/20/2024, 2022 Diabetic Eye Exam Discontinued 10/28/2022 COVID-19 Vaccine Completed 07/24/2024, , 03/14/2022, Additional history exists Hepatitis B Vaccine Aged Out No longe r eligible based on patient's age to complete this topic Meningococcal B Vaccine Aged Out No l onger eligible based on patient's age to complete this topic Procedures Procedure Name Priority Date/Time Associated Diagnosis Comments MRI FOOT RIGHT WO CONTRAST Routine 07/11/2025 12:59 PM EDT Pain in right foot Other sprain of unspecified foot, initial encounter Strain of right Achilles tendon, subsequent encounter [facility] DIABETES EYE EXAM Routine 10/28/2022 from Last 3 Months or Most Recently Relevant to Health Maintenance Results * MRI FOOT RIGHT WO CONTRAST (07/11/2025 12:59 PM EDT) Narrative [facility] RAD[facility] - 07/11/2025 12:59 PM EDT Please see the scanned MRI report associated with this order on the Imaging tab of the patient's chart. us Not In [facility] Provider IMG MRI ORDERABLES Final Re sult Performing Organization Address City/[facility]/ZIP Co de Phone Number [facility] * DIABETES EYE EXAM (10/28/2022) Left Diabetic Retinopathy Not Present Present/Not Present SEP OFFICE Right Diabetic Retinopathy Not Present Present/Not Present SEP OFFICE us Historical Provider HEALTH MAINTENANCE Edited Re sult - Final Performing Organization Address City/State/[facility] Co de Phone Number SEP OFFICE from Last 3 Months or Most Recently Relevant to Health Maintenance Care Teams Trust Clerk Relationship Specialty Start Date End Date Ryan Stack NP [address] [place] [id number] PCP - General Nurse Practitioner-Family 12/22/22
--- OUTSIDE RECORDS SUMMARY | 2025-08-26 01:26 | XMS_ITS | Encounter Summary ---
Author Organization [facility] Address [address] [place] [address] Care Team Providers Care Public Affairs Manager Name Role Phone Ryan Stack NP Primary Care Provider [phone] Reason for Visit * Reason Comments Medication Refill Encounter Details Date Type Department Care Team (Late st Contact Info) Description 07/22/2025 [place] [address] Shubham Rivas PA [address] [place] [address] Medication Refill Social History Tobacco Use Types Packs/Day Years [...] on file documented as of this encounter Ordered Prescriptions Prescription Sig Dispense Quantity Refills Last Filled Start Date End Date ibuprofen (ADVIL;MOTRIN) 800 mg Oral Tablet Take 1 Tablet by mouth every 8 hours as needed for Pain. 90 Tablet 2 07/22/2025 documented in this encounter Plan of Treatment Not on file documented as of this encounter Visit Diagnoses Not on filedocumented in this encounter Discontinued Medications Medication Sig Discontinue Reason Start Date End Da te ibuprofen (ADVIL;MOTRIN) 800 mg Oral Tablet Take 1 Tablet by mouth every 8 hours as needed for Pain. 02/10/2025 07/22/2025 documented as of this encounter Care Teams Public Affairs Manager Relationship Specialty Start Date End Date Ryan Stack NP [address] [place] [address] PCP - General Nurse Practitioner-Family 12/22/22 documented as of this encounter
--- OUTSIDE RECORDS SUMMARY | 2025-08-26 01:26 | XMS_ITS | Encounter Summary ---
Author Organization Healthcare Address [address] [id number] Care Team Providers Care Support Group Manager Name Role Phone Ryan Stack APRN Primary Care Provider [phone] Reason for Referral * Consultation (Routine) - Closed Specialty Diagnoses / Procedures Referred By Chiquita t Referred To Contact Rheumatology Diagnoses Elevated rheumatoid factor ELISEO positive Ryan Stcak APRN [address] [place] [address] Phone: tel: fax: Referral ID Status Reason Start Date Expiration Date V isits Requested Visits Authorized [id number] Closed Specialty Services Required 03/15/2022 09/14/2023 1 1 Encounter Details Date Type Department Care Team (Late st Contact Info) Description 03/15/2022 Community [facility] [address] [place] [address] Ryan Stack APRN [address] [place] [address] Elevated rheumatoid factor (Primary Dx); ELISEO positive Social History Tobacco Use Types Packs/Day Years Used Date Smoking Tobacco: Never Assessed Comments Unknown Sex and Gender Information Value Date Recorded Sex Assigned at Not on file Legal Sex Female 3:00 PM EDT Gender Identity Not on file Sexual Orientation Not on file documented as of this encounter Plan of Treatment Scheduled Referrals Name Type Priority Associated Diagnoses Order Schedule Ambulatory referral to Rheumatology Outpatient Referral Routine Elevated rheumatoid factor ELISEO positive 1 Occurrences starting 03/15/2022 until 06/14/2022 documented as of this encounter Visit Diagnoses Diagnosis Elevated rheumatoid factor- Primary Other and unspecified nonspecific immunological findings ELISEO positive documented in this encounter Care Teams Support Group Manager Relationship Specialty Start Date End Date Ryan Stack APRN [address] [place] [address] PCP - General 04/28/22 documented as of this encounter
--- OUTSIDE RECORDS SUMMARY | 2025-08-26 01:26 | XMS_ITS | Clinical Summary ---
Author Organization Healthcare Address [address] [place] [address] Care Team Providers Care Forest Fire Management Officer Name Role Phone Sreekanth Ryan Virgil FARLEY Primary Care Provider Allergies Active Allergy Reactions Criticality Noted Date Comments Iv Contrast Hives Medium 07/18/2022 MRI contrast Medications cholecalciferol (Vitamin D-3) 50 MCG (2000 UT) capsule Take 1 capsule (2,000 Units) by mouth 1 (one) time each day. 2 Active buPROPion XL (Wellbutrin XL) 150 MG 24 hr tablet Take 1 tablet (150 mg) by mouth 1 (one) time each day. 2 Active cetirizine (ZyrTEC) 10 MG tablet Take 1 tablet (10 mg) by mouth 1 (one) time each day. 2 Active cyclobenzaprine (Flexeril) 10 MG tablet Take 1 tablet (10 mg) by mouth at night if needed. 2 Active ergocalciferol 1.25 MG (70157 UT) capsule Take 1 capsule (50,000 Units) by mouth 1 (one) time per week. 2 Active fluticasone (Flonase) 50 MCG/ACT nasal spray Administer 1 spray into each nostril 1 (one) time each day. 2 Active Horizant 300 MG tablet controlled-rele ase ER tablet Take 1 tablet (300 mg) by mouth every night. 2 Active glimepiride (Amaryl) 2 MG tablet Take 1 tablet (2 mg) by mouth 1 (one) time each day. 2 Active hydroCHLOROthia zide (Microzide) 12.5 MG capsule Take 1 capsule (12.5 mg) by mouth 1 (one) time each day. 2 Active metFORMIN (Glucophage) 500 MG tablet Take 1 tablet (500 mg) by mouth 2 (two) times a day. 2 Active pramipexole (Mirapex) 0.25 MG tablet 2 Active rosuvastatin (Crestor) 5 MG tablet Take 1 tablet (5 mg) by mouth 1 (one) time each day. 2 Active Ubrelvy 100 MG tablet Take 1 tablet (100 mg) by mouth 1 (one) time each day if needed. 2 Active co-enzyme Q-10 30 MG capsule Take 100 mg by mouth 1 (one) time each day. Active Vitamin D-Vitamin K (Vitamin K2-Vitamin D3) 45-2000 MCG-UNIT capsule TAKE ONE CAPSULE BY MOUTH DAILY 2 Active topiramate (Topamax Sprinkle) 25 MG capsule Take 1 capsule (25 mg) by mouth 1 (one) time each day. 2 Active ProAir HFA 108 (90 Base) MCG/ACT inhaler INHALE 2 PUFFS INTO THE LUNGS 4 TIMES DAILY 2 Active dicyclomine (Bentyl) 20 MG tablet 2 Active Advair Diskus 100-50 MCG/ACT diskus inhaler INHALE 1 PUFF INTO THE LUNGS TWICE DAILY 2 Active omeprazole (PriLOSEC) [address] capsule Take 1 capsule (40 mg) by mouth 1 (one) time each day. 2 Active urea (Carmol) 40 % cream 2 Active Ozempic, 0.25 or 0.5 MG/DOSE, 2 MG/1.5ML solution pen-injector inj. pen Inject 0.75 mL (1 mg) under the skin 1 (one) time per week. 3 Active ibuprofen 800 MG tablet Take 1 tablet (800 mg) by mouth every 8 (eight) hours if needed. 3 Active Vitamin D3 1.25 MG (90646 UT) capsule Take 1 capsule (50,000 Units) by mouth 1 (one) time per week. 3 Active doxycycline (Vibramycin) 100 MG capsule Take 1 capsule (100 mg) by mouth. 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 Overview (06/28/2022): Added automatically from request for surgery [id number] Immunizations Immunization Administration Dates Next Due Influenza, injectable, quadrivalent, preservativ e free 09/13/2023 Family History Medical History Relation Name Comments No Known Problems Father Diabetes Mother Caroline Almazan Thyroid cancer Mother Caroline Almazan Autoimmune disease Neg Hx Relation Name Status Comments Brother Father Alive Maternal Grandmother Mother Caroline Almazan Alive Sister Social History Tobacco Use Types Packs/Day Years Used Date Smoking Tobacco: Former Cigarettes 0.5 45 0 05/04/1977 - 05/07/2022 Passive Smoke Exposure: Past Smokeless Tobacco: Never Tobacco Cessation:Counseling Given: Not Answered Comments:pt said she is working on quiting Alcohol Use Standard Drinks/Week Comments Yes 0 (1 standard drink = 0.6 oz pur e alcohol) social PHQ-2 Answer Date Recorded Patient Health Questionnaire-2 Score 0 09/06/2024 PHQ-2A Answer Date Recorded Patient Health Questionnaire-2 Score 0 08/31/2023 Comments No Sex and Gender Information Value Date Recorded Sex Assigned at Not on file Legal Sex Female 3:00 PM EDT Gender Identity Not on file Sexual Orientation Not on file Last Filed Vital Signs Vital Sign Reading Time Taken Comments Blood Pressure 115/78 09/06/2024 1:43 PM EDT Pulse 94 09/06/2024 1:43 PM EDT Temperature 36.6 C (97.9 F) 09/06/2024 1:43 PM EDT Respiratory Rate 16 09/06/2024 1:43 PM EDT Oxygen Saturation 96% 09/06/2024 1:43 PM EDT Inhaled Oxygen Concentration - - Weight 103 kg (227 lb 4.7 oz) 09/06/2024 1:43 PM EDT Height 170.2 cm (5' 7 ) 09/06/2024 1:43 PM EDT Body Mass Index 35.6 09/06/2024 1:43 PM EDT Plan of Treatment Health Maintenance Due Date Last Done Comments [facility]-HIV Screening 1965 [facility]-Hepatitis C Screening 1965 [facility]-Infant/Child/Adol SDOH Screenings 1965 [facility]- SDOH Screenings 1983 [facility]-Adult SDOH Screenings 1983 [facility]-DTaP,Tdap,and Td Vaccines (1 - Tdap) 1984 [facility]-Pap Smear 1986 [facility]-Cervical Cancer Screening 1995 [facility]-HPV/Cotest 1995 CT Colonography 2010 Colonoscopy 2010 FIT-DNA 2010 FIT 2010 FOBT 2010 Sigmoidoscopy 2010 [facility]-Colorectal Cancer Screening 2010 [facility]-Breast Cancer Screening 2015 [facility]-Lung Cancer Screening 2015 [facility]-Pneumococcal Vaccine: 50+ Years (1 of 1 - PCV) 2015 [facility]-Zoster Vaccines (1 of 2) 2015 [facility]-Influenza Vaccine (#1) 2025 09/13/2023 [facility]-Depression Screening 09/06/2025 09/06/2024, 07/0 06/2022 [facility]-RSV Vaccine: 60+ Years or (1 - 1-dose 75+ series) 2040 [id number] Vaccine Completed 07/24/2024, 09/13/2023, 03/14/2022, Additional history exists [facility]-Obesity Intervention Completed 024, 03/01/2024, 08/31/2023, Additional history exists HPV Vaccines Aged Out No longer eligi ble based on patient's age to complete this topic [facility]-HIB Vaccines Aged Out No longer e ligible based on patient's age to complete this topic [facility]-Hepatitis A Vaccines Aged Out No longer eligible based on patient's age to complete this topic [facility]-IPV Vaccines Aged Out No longer e ligible based on patient's age to complete this topic [facility]-Rotavirus Vaccines Aged Out No lo nger eligible based on patient's age to complete this topic Insurance [facility] Care Teams Forest Fire Management Officer Relationship Specialty Start Date End Date Ryan Stack APRN [address] [place] [id number] PCP - General 04/28/22
== END 2025-08-25 23:59 ==
LOC: LAB.DROPOF 08-26 01:24
PROVIDERS: PCP Family Medicine; Visit Provider Family Medicine
DX: J45.909 Unspecified asthma, uncomplicated (principal); E11.9 Type 2 diabetes mellitus without complications; E66.9 Obesity, unspecified
CPT/HCPCS: 80053; 80061; 83036; 85025

== ENCOUNTER 2025-09-02 13:30 | Outpatient (CLI) | payer OTHER, SELFPAY ==
--- OUTSIDE RECORDS SUMMARY | 2025-07-11 16:30 | XMS_ITS | Encounter Summary ---
Author Organization [facility] Address [address] [place] [address] Care Team Providers Care Loan Originator Name Role Phone Ryan Stack NP Primary Care Provider [phone] Reason for Visit * MRI/CAT Scan (Routine) [...] Expiration Date V isits Requested Visits Authorized [id number] Pending Review 07/02/2025 07/02/2026 1 1 Encounter Details Date Type Department Care Team (Latest Contact Info) Description 07/11/2025 4:30 PM EDT Ancillary Procedure [facility] MRI [address] [facility] [address] [place] [address] Pain in right foot; Other sprain [...] as of this encounter Plan of Treatment Upcoming Encounters Date Type Department Care Team (Late st Contact Info) Description 09/17/2025 10:45 AM EDT Office Visit [address] [address] Maksim Castorena, DO [address] [place] [address] documented as of this encounter Procedures Procedure Name Priority Date/Time Associated Diagnosis Comments MRI FOOT RIGHT WO CONTRAST Routine 07/11/2025 12:59 PM EDT Pain in right foot Other sprain of unspecified foot, initial encounter Strain of right Achilles tendon, subsequent encounter documented in this encounter Results * MRI FOOT RIGHT WO CONTRAST (07/11/2025 12:59 PM EDT) Narrative [facility] - 07/11/2025 12:59 PM EDT Please see the scanned MRI report associated with this order on the Imaging tab of the patient's chart. us Not In Epic Provider IMG MRI ORDERABLES Final Re sult [facility] documented in this encounter Visit Diagnoses Diagnosis Pain in right foot Pain in limb Other sprain of unspecified foot, initial encounter Strain of right Achilles tendon, subsequent encounter documented in this encounter Care Teams Loan Originator Relationship Specialty Start Date End Date Ryan Stack NP [address] [place] [address] PCP - General Nurse Practitioner-Family 12/22/22 documented as of this encounter
--- OUTSIDE RECORDS SUMMARY | 2025-09-04 08:50 | XMS_ITS | Encounter Summary ---
Author Organization Healthcare Address [address] [id number] Care Team Providers Care Tax Compliance Representative Name Role Phone Ryan Stack APRN Primary Care Provider [phone] Reason for Referral * Consultation (Routine) - Closed Specialty Diagnoses / Procedures Referred By Chiquita t Referred To Contact Rheumatology Diagnoses Elevated rheumatoid factor ELISEO positive Ryan Stack APRN [address] [place] [address] Phone: tel: fax: Referral ID Status Reason Start Date Expiration Date V isits Requested Visits Authorized [id number] Closed Specialty Services Required 03/15/2022 09/14/2023 1 1 Encounter Details Date Type Department Care Team (Late st Contact Info) Description 03/15/2022 Community [facility] [address] [place] [address] Ryan Stack APRN [address] [place] [address] Elevated rheumatoid factor (Primary Dx); ELISEO positive [...] positive documented in this encounter Care Teams Tax Compliance Representative Relationship Specialty Start Date End Date Ryan Stack APRN [address] [place] [address] PCP - General 04/28/22 documented as of this encounter
--- OUTSIDE RECORDS SUMMARY | 2025-09-04 08:50 | XMS_ITS | Data Portability ---
Author Organization [facility] - [facility] - [facility] MIGUEL Lindquist ADMIN Address [address] [place] [address] Assessment Encounter Date Assessment Date Assessment LastModified by Organization Details LastModified Time 10/24/2022 10/24/2022 57-year-old femtutu smith with fecal urgency and diarrhea. No etiology on colonoscopy with random colon biopsies. She likely suffers from IBS-D -Start dicyclomine TID. If this does not manage her symptoms well, will consider treatment with Xifaxan TID x2 weeks. -Continue PPI for heartburn. -Consider celiac serologies at f/u -Repeat colonoscopy due 09/2027 for surveillance [email or web address] Not available 10/26/2022 10:56:26 12/05/2022 12/05/2022 57-year-old femtutu le with fecal urgency and diarrhea. No etiology on colonoscopy with random colon biopsies. She may suffer from IBS-D. Dicyclomine was not helpful. -I will obtain a KUB (to be done at [facility]). If she appears constipated, will start laxative therapy. -If KUB unremarkable, will plant to start Xifaxan TID x2 weeks. -Continue PPI for heartburn. -Consider celiac serologies at f/u -Repeat colonoscopy due 09/2027 for surveillance [email or web address] Not available 12/05/2022 14:48:43 01/16/2023 01/16/2023 57-year-old femtutu le with fecal urgency and diarrhea. No etiology [...] Xifaxan. Patient requests this be sent to [facility]. -Will notify patient if constipation is shown on x-ray. Will advise MiraLax purge to relieve constipation. Discussed this with patient in office today. 4) Heartburn -Continue omeprazole 2 week phone follow-up [email or web address] Not available 04/18/2023 11:24:34 05/26/2023 05/26/2023 57-year-old eulalio le s/p choleycystectomy at [facility] 04/2023 with chronic diarrhea. No etiology [...] patient states she will follow-up as needed [email or web address] Not available 05/26/2023 11:31:46 Plan of Treatment Reminders Order Date Submit Date Provider Last Modified By Organization Details Last Modified Time Details Appointments None recorded. Lab None recorded. Referral None recorded. Procedures None recorded. Surgeries None recorded. Imaging XR, abdomen - Please evaluate stool load for possible constipati on. 2022 023 [email or web address] [facility] (X-Ray), [address], [place], [address], 3 11:28:37 XR, kidney + ureter + bladder 2022 023 [facility] (X-Ray), [address], [place], [address], 3 13:58:58 Medication Orders colestipol 1 gram tablet 2022 023 [facility] [address], [address], [place], [address], 3 11:30:39 cyclobenza jarett 10 mg tablet 2022 023 [facility] [address], [address], [place], [address], 3 11:48:43 Xifaxan 550 mg tablet 2022 023 [facility], [address], [address], [place], [address], 3 11:10:51 dicyclomin e 20 mg tablet 2021 022 [facility], [address], [address], [place], [address], 3 11:48:41 Patient TargetsNo targets recorded. Patient Instructions Encounter Date Encounter Id Patient Instructions Last Modified By Organization Details Last Modified Time 01/16/2023 [id number] DATE OF OPERATION: 09/27/2022 SURGEON: Glenn Dacosta [...] adenoma. Negative for carcinoma or high-grade dysplasia. [email or web address] Not available 01/16/2023 13:44:23 04/18/2023 [id number] DATE OF OPERATION: 09/27/2022 SURGEON: Glenn Dacosta [...] adenoma. Negative for carcinoma or high-grade dysplasia. Not available 04/17/2023 13:44:01 05/26/2023 [id number] DATE OF OPERATION: 09/27/2022 SURGEON: Glenn Dacosta [...] adenoma. Negative for carcinoma or high-grade dysplasia. Not available 05/26/2023 08:56:41 Reason for Referral [...] FINAL RESUL TS REPOR PAOLA. Not Available [facility] ([facility]) [address] [place], [address], 09/27/2022 11:40:41 09/27/20 22 09/27/2022 GASTR OINTE LENNOX L PANEL ,STL PCR C difficile toxin A/B NOT DETECT ED not detect ed Not Available [facility] ([facility]) [address] [place], [address], 09/27/2022 11:40:41 09/27/20 22 09/27/2022 GASTR OINTE LENNOX L PANEL ,STL PCR plesiomonas shigelloides NOT DETECT ED Not Available [facility] ([facility]) [address] [place], [address], 09/27/2022 11:40:41 09/27/20 22 09/27/2022 GASTR OINTE LENNOX L PANEL ,STL PCR salmonella NOT DETECT ED not detect ed Not Available [facility] ([facility]) [address], [place], [address], 09/27/2022 11:40:41 09/27/20 22 09/27/2022 GASTR OINTE LENNOX L PANEL ,STL PCR vibrio NOT DETECT ED not detect ed Not Available [facility] ([facility]) [address], [place], [address], 09/27/2022 11:40:41 09/27/20 22 09/27/2022 GASTR OINTE LENNOX L PANEL ,STL PCR vibrio cholerae NOT DETECT ED not detect ed Not Available [facility] ([facility]) [address], [place], [address], 09/27/2022 11:40:41 09/27/20 22 09/27/2022 GASTR OINTE LENNOX L PANEL ,STL PCR yersinia enterocoliti ca NOT DETECT ED not detect ed Not Available [facility] ([facility]) [address], [place], [address], 09/27/2022 11:40:41 09/27/20 22 09/27/2022 GASTR OINTE LENNOX L PANEL ,STL PCR enteroaggreg ative E coli NOT DETECT ED not detect ed Not Available [facility] ([facility]) [address], [place], [address], 09/27/2022 11:40:41 09/27/20 22 09/27/2022 GASTR OINTE LENNOX L PANEL ,STL PCR enteropathog enic E coli NOT DETECT ED not detect ed Not Available [facility] ([facility]) [address] [place], [address], 09/27/2022 11:40:41 09/27/20 22 09/27/2022 GASTR OINTE LENNOX L PANEL ,STL PCR enterotoxige olaf E coli lt/st NOT DETECT ED not detect ed Not Available [facility] ([facility]) [address] [facility] [place], [address], 09/27/2022 11:40:41 09/27/20 22 09/27/2022 GASTR OINTE LENNOX L PANEL ,STL PCR shiga-toxin- producing E coli NOT DETECT ED not detect ed Not Available [facility] ([facility]) [address], [place], [address], 09/27/2022 11:40:41 09/27/20 22 09/27/2022 GASTR OINTE LENNOX L PANEL ,STL PCR E coli O157 N/A not detect ed Not Available [facility] ([facility]) [address], [place], [address], 09/27/2022 11:40:41 09/27/20 22 09/27/2022 GASTR OINTE LENNOX L PANEL ,STL PCR shigella/ent eroinvasive E coli NOT DETECT ED not detect ed Not Available [facility] ([facility]) [address], [place], [address], 09/27/2022 11:40:41 09/27/20 22 09/27/2022 GASTR OINTE LENNOX L PANEL ,STL PCR cryptosporid ium NOT DETECT ED not detect ed Not Available [facility] ([facility]) [address], [place], [address], 09/27/2022 11:40:41 09/27/20 22 09/27/2022 GASTR OINTE LENNOX L PANEL ,STL PCR cyclospora cayetanensis NOT DETECT ED not detect ed Not Available [facility] ([facility]) [address] [place], [address], 09/27/2022 11:40:41 09/27/20 22 09/27/2022 GASTR OINTE LENNOX L PANEL ,STL PCR entamoeba histolytica NOT DETECT ED not detect ed Not Available [facility] ([facility]) [address] [facility] [place], [address], 09/27/2022 11:40:41 09/27/20 22 09/27/2022 GASTR OINTE LENNOX L PANEL ,STL PCR giardia lamblia NOT DETECT ED not detect ed Not Available [facility] ([facility]) [address], [place], [address], 09/27/2022 11:40:41 09/27/20 22 09/27/2022 GASTR OINTE LENNOX L PANEL ,STL PCR adenovirus F / NOT DETECT ED not detect ed Not Available [facility] ([facility]) [address], [place], [address], 09/27/2022 11:40:41 09/27/20 22 09/27/2022 GASTR OINTE LENNOX L PANEL ,STL PCR astrovirus NOT DETECT ED not detect ed Not Available [facility] ([facility]) [address], [place], [address], 09/27/2022 11:40:41 09/27/20 22 09/27/2022 GASTR OINTE LENNOX L PANEL ,STL PCR norovirus GI/gii NOT DETECT ED not detect ed Not Available [facility] ([facility]) [address], [place], [address], 09/27/2022 11:40:41 09/27/20 22 09/27/2022 GASTR OINTE LENNOX L PANEL ,STL PCR rotavirus A NOT DETECT ED not detect ed Not Available [facility] ([facility]) [address], [place], [address], 09/27/2022 11:40:41 09/27/20 22 09/27/2022 GASTR OINTE [...] se Pedia trici an is recom bela peter. Test Metho dolog y: BioFi re FilmA rray GI Panel - Melti ng curve alex sis, PCR, multi plex, rever se trans cript ase Not Available [facility] ([facility]) [address] , [place], [address], 09/27/2022 11:40:41 12/07/19 23 12/07/2022 XR, kidne y + urete r + bladd er No observ ation record ed. [facility] [address], [place], [address], 12/14/2022 15:52:12 Result Notes None recorded. Problems Name Problem SNOMED Code Status Onset Date Resolution Date Notes Provider Name and Address Organization Details Recorded Time Irritable bowel syndrome with diarrhea 890796057 Active 2021 Emerson Mcdaniel PA-C [address] , [place], [address] , [place] [facility] & [place] 2 14:13:05 Heartburn 15818595 Active 2021 Emerson Mcdaniel PA-C [address], [place], [address] , [place] [facility] & [place] 2 14:13:34 Musculoskelet al pain 678224077 Active 2022 Emerson Mcdaniel PA-C [address], [place], [address] , [place] [facility] [place] & [place] 13:34:00 Problem Notes None recorded. Medical Equipment None Reported. Allergies No known drug allergies Medications Name Sig Start Date Stop Date Status Note LastModified by Organization Details LastModified Time vitamin d3 2,000 unit softg TAKE 1 CAPSULE BY MOUTH ONCE DAILY. active Not Available Not Available No t Available vitamin d3 50 mcg (2000 ut) TAKE 1 CAPSULE BY MOUTH ONCE [...] Date Recorded Body weight Heart rate Systolic And Diastolic Provider Name and Address Organization Details Last Updated DateTime 12/05/2022 640703.88 g 103 /min 161/93 mm[Hg] Yolanda RIVERA [facility] [place] 12/05/2022 14:12:49 Date Recorded Body weight Heart rate Systolic And Diastolic Provider Name and Address Organization Details Last Updated DateTime 01/16/2023 666202.28 g 91 /min 121/80 mm[Hg] Yolanda RIVERA [facility] [place] 01/16/2023 13:09:35 Date Recorded Body weight Body mass index (BMI) Body height Oxygen saturation Oxygen saturation in Arterial blood by Pulse oximetry Heart rate Systolic And Diastolic Provider Name and Address Organization Details Last Updated DateTime 3 535997. 91 g 34.6 kg/m2 170.18 cm 95 % 95 % 86 /min 125/87 mm[Hg] Bianca Yun [facility] & [place] 3 10:19:27 Date Recorded Body weight Heart rate Systolic And Diastolic Provider Name and Address Organization Details Last Updated DateTime 10/24/2022 641136.28 g 80 /min 146/80 mm[Hg] [facility] [place] 10/24/2022 13:33:24 Social History None recorded. Functional Status Question Answer Note LastModified by Organization D etails LastModified Time What is your level of alcohol consumption? None [email or web address] Information not available 12/05/2022 Mental Status None recorded. Family History Nothing Reported. Medical History No medical history recorded. Gynecological HistoryNo gynecological history recorded. Obstetrics History GPAL:G 0 P 0 0 0 0 Past Encounters Encounter ID Performer Location Encounter Start Date Encounter Closed Date Diagnosis/Indication Diagnosis SNOMED-CT Code Diagnosis ICD10 Code Diagnosis IMO Codes Diagnosis Note [id number] Emerson Mcdaniel PA-C [facility] [address] [address] 10/24/2022 13:20:06 10/24/2022 14:13:38 Irritable bowel syndrome with diarrhea 249711540 K58.0 History of polyp of colon 292749145 Z86.010 Heartburn 52114177 R12 [id number] Emerson Mcdaniel PA-C [facility] [address] [address] 12/05/2022 13:57:51 12/05/2022 14:45:08 Irritable bowel syndrome with diarrhea 851179032 K58.0 Heartburn 52395309 R12 History of polyp of colon 013984561 Z86.010 Surveillan ce colonoscop y due 09/2027 [id number] Emerson Mcdaniel PA-C [facility] [address] [place] [address] 01/16/2023 13:02:07 01/16/2023 13:55:54 Irritable bowel syndrome with diarrhea 789496474 K58.0 History of polyp of colon 623538699 Z86.010 Heartburn 52323280 R12 Musculoskeletal pain 279 166931 M79.10 [id number] Glenn Dacosta MD [facility] [address] [address] 04/18/2023 10:07:20 04/18/2023 10:46:37 Irritable bowel syndrome with diarrhea 825127892 K58.0 History of polyp of colon 329648253 Z86.010 Heartburn 64926962 R12 Alteration in bowel elimination: constipation 67534108 K59.00 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 [id number] Glenn Dacosta MD [facility] [address] [address] 05/26/2023 11:01:57 05/26/2023 11:20:04 Irritable bowel syndrome with diarrhea 312015202 K58.0 History of polyp of colon 129207053 Z86.010 Heartburn 63246560 R12 Alteration in bowel elimination: constipation 62704007 K59.00 Bile acid malabsorption syndrome 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 History of cholecystectomy 525713530 Z90.49 Health Concerns Section Related Observation LastModified by Organization Detai ls LastModified Time None Recorded Concern Status LastModified by Organization Details LastModified Time None Recorded Advance Directives Directive None Recorded Payers Insurance Date Sequence Insurance Name Policy Number Policy Ehrnandez Covered Member ID Hernandez Member ID Guarantor Name 10/24/2022 1 [employer] (O) Onelia Almazan [id number] Onelia Tha 05/23/2023 1 [facility] (MEDICAID REPLACEMENT - HMO) DASHAWN Onelia Tha [id number] Onelia Almazan Notes Date Note Type Note Provider Name and Address Organization Details Recorded Time 10/24/2022 text/html Ms. Almazan presents to the office today [...] effect. Emerson Mcdaniel PA-C [address], [place], [address], [facility] 10/26/2022 10:57:00 12/05/2022 text/html PREVIOUS (10/24/22): Ms. Almazan presents to the office today [...] year. Emerson Mcdaniel PA-C [address], [place], [address], [facility] 12/05/2022 14:50:11 01/16/2023 text/html PREVIOUS (12/05/22): Ms. Almazan presents to the office today [...] denies hematemesis or hematochezia. Emerson Mcdaniel PA-C [address], [place], [address], [place] [facility] [place] [facility] [place] 01/16/2023 13:44:32 04/18/2023 text/html PREVIOUS (12/05/22): Ms. Almazan presents to the office today [...] vomiting, hematemesis or hematochezia. COREY BASURTO MSN, GASTROENTEROLOGY NURSE, [employer]-C [address], [place], [address], [place] [facility] [place] [facility] [place] 04/18/2023 11:29:48 05/26/2023 text/html PREVIOUS (01/16/23): Ms. Almazan presents to the [...] patient states she was recently hospitalized at [facility] on 05/01/2023 for abdominal pain. She [...] diagnosis, specifically as above. COREY BASURTO MSN, GASTROENTEROLOGY NURSE, [employer]PERINT[employer]ENT [employer]-C [address], [place], [address], [facility] - [place] - [place] & [place] 05/26/2023 11:35:59 OBGyn Episode No OBEpisode recorded.
--- OUTSIDE RECORDS SUMMARY | 2025-09-04 08:50 | XMS_ITS | Encounter Summary ---
Author Organization [facility] Address [address] [place] [address] Care Team Providers Care Data Processor Name Role Phone Ryan Stack NP Primary Care Provider [phone] Reason for Visit * Reason Comments Medication Refill Encounter Details Date Type Department Care Team (Late Contact Info) Description 07/22/2025 [place] [address] Shubham Rivas PA [address] [place] [address] Medication Refill Social History Tobacco Use Types [...] documented in this encounter Plan of Treatment Upcoming Encounters Date Type Department Care Team (Late st Contact Info) Description 09/17/2025 10:45 [place] [address] Maksim Castorena DO [address] [place] [address] documented as of this encounter Visit Diagnoses Not on filedocumented in this encounter Discontinued Medications Medication Sig Discontinue Reason Start Date End Da te ibuprofen (ADVIL;MOTRIN) 800 mg Oral Tablet Take 1 Tablet by mouth every 8 hours as needed for Pain. 02/10/2025 07/22/2025 documented as of this encounter Care Teams Data Processor Relationship Specialty Start Date End Date Ryan Stack NP [address] [place] [address] PCP - General Nurse Practitioner-Family 12/22/22 documented as of this encounter
--- OUTSIDE RECORDS SUMMARY | 2025-09-04 08:50 | XMS_ITS | Clinical Summary ---
Author Organization [facility] Address [address] [place] [address] Care Team Providers Care Maintenance Craftsman Name Role Phone Sreekanth Ryan Virgil FARLEY [...] if needed. 2 Active ergocalciferol 1.25 MG (07143 UT) capsule Take 1 capsule (50,000 Units) [...] needed. 3 Active Vitamin D3 1.25 MG (61393 UT) capsule Take 1 capsule (50,000 Units) [...] (06/28/2022): Added automatically from request for surgery [id number] Immunizations Immunization Administration Dates Next Due Influenza, [...] or (1 - 1-dose 75+ series) 2040 [id number] Vaccine Completed 07/24/2024, 09/13/2023, 03/14/2022, Additional history [...] patient's age to complete this topic Insurance [facility] Care Teams Maintenance Craftsman Relationship Specialty Start Date End Date Ryan Stack APRN [address] [place] [address] PCP - General 04/28/22
--- OUTSIDE RECORDS SUMMARY | 2025-09-04 08:50 | XMS_ITS | Encounter Summary ---
Author Organization [facility] Address [address] [place] [address] Care Team Providers Care Title One Teacher Name Role Phone Ryan Stack NP Primary Care Provider [phone] Encounter Details Date Type Department Care Team (Late st Contact Info) Description 08/29/2025 [place] [address] Maksim Castorena DO [address] [place] [address] Social History Tobacco Use Types Packs/Day Years [...] on file documented as of this encounter Miscellaneous Notes * Telephone Encounter - Lillian Cook Ortho Tech - 08/29/2025 4:54 PM EDT PLEASE SEE ABOVE * Telephone Encounter - Valerie Haley, Clerical Staff - 08/29/2025 4:52 PM EDT Patient would like a call back to set up an EMG appt. She says it is through [facility] and is approved. documented in this encounter Plan of Treatment Upcoming Encounters Date Type Department Care Team (Late st Contact Info) Description 09/17/2025 10:45 AM EDT Office Visit [facility] [address] [place], [place] [id number] Maksim Castorena DO [address] [place], [place] [id number] documented as of this encounter Visit Diagnoses Not on filedocumented in this encounter Care Teams Title One Teacher Relationship Specialty Start Date End Date Ryan Stack NP [address] [place] [address] PCP - General Nurse Practitioner-Family 12/22/22 documented as of this encounter
--- OUTSIDE RECORDS SUMMARY | 2025-09-04 08:50 | XMS_ITS | Clinical Summary ---
Author Organization [facility] Address [address] [place] [address] Phone Care Team Providers Care Associate Director Name Role Phone Ryan Stack NP Primary Care Provider [phone] Allergies Active Allergy Reactions Criticality Noted Date Comments Iodinated Contrast Media Hives Medium 07/18/2022 MRI contrast; not sure about topical betadine ?? Medications Blood Sugar Diagnostic (FREESTYLE LITE STRIPS) [facility] Strip Test blood glucose. 6 Active buPROPion [...] not sure 3 Active lancets [facility] Test blood glucose. 5 Active metFORMIN (GLUCOPHAGE) [...] as needed for Pain. 90 Tablet 2 Active Active Problems Problem Noted Date Diagnosed Date Acute medial meniscus tear of right knee 023 Acute medial meniscus tear of right knee 023 Overview (01/09/2023): Added automatically from request for surgery [id number] Chondromalacia of right patella 01/09/2023 Overview (01/09/2023): Added automatically from request for surgery [id number] Encounters Date Type Department Care Team Description 08/29/2025 Telephone [facility] [address] [place] [address] Maksim Castorena DO 07/22/2025 Refill [facility] [address] [place] [address] Shubham Rivas, PA Medication Refill 07/11/2025 4:30 PM EDT Ancillary Procedure [facility] MRI [address] [facility] [address] [place] [address] Pain in right foot; Other [...] arthroscopic chondroplasty; Surgeon: Toy Erazo MD; [facility]; Service: Orthopedics Medical History Medical History Date [...] 02/02/2023 1:10 PM EDT Plan of Treatment Upcoming Encounters Date Type Department Care Team (Late st Contact Info) Description 09/17/2025 10:45 AM EDT Office Visit [facility] [address] [place] [address] Maksim Castorena, DO [address] [place] [address] Health Maintenance Due Date Last Done Comments [...] Strain of right Achilles tendon, subsequent encounter DIABETES EYE EXAM Routine 10/28/2022 from Last 3 Months or Most Recently Relevant to Health Maintenance Results * MRI FOOT RIGHT WO CONTRAST (07/11/2025 12:59 PM EDT) Narrative [facility] - 07/11/2025 12:59 PM EDT Please see the scanned MRI report associated with this order on the Imaging tab of the patient's chart. us Not In [facility] Provider IMG MRI ORDERABLES Final Re sult Performing Organization Address City/[facility]/ZIP Co de Phone Number [facility] * DIABETES EYE EXAM (10/28/2022) Left Diabetic Retinopathy Not Present Present/Not Present SEP OFFICE Right Diabetic Retinopathy Not Present Present/Not Present SEP OFFICE us Historical Provider HEALTH MAINTENANCE Edited Re sult - Final SEP OFFICE from Last 3 Months or Most Recently Relevant to Health Maintenance Care Teams Associate Director Relationship Specialty Start Date End Date Ryan Stack NP [address] [place] [id number] PCP - General Nurse Practitioner-Family 12/22/22
== END 2025-09-02 23:59 | disposition home or self-care (01) ==
LOC: LAB.DROPOF 09-04 08:40
PROVIDERS: PCP Obstetrics & Gynecology; Visit Provider Obstetrics & Gynecology
DX: N89.8 Other specified noninflammatory disorders of vagina (principal)
CPT/HCPCS: 87086; 87491; 87529; 87591; 87661; 87798; 87801

== ENCOUNTER 2025-10-13 11:41 | Outpatient (CLI) | payer OTHER, SELFPAY ==
--- OUTSIDE RECORDS SUMMARY | 2025-10-13 11:57 | XMS_ITS | Encounter Summary ---
Author Organization [facility] Address [address] [place] [address] Care Team Providers Care Rn Pain Management Name Role Phone Ryan Stack NP Primary Care Provider [phone] Encounter Details Date Type Department Care Team ([facility] Contact Info) Description 09/15/2025 [place] [address] Maksim Castorena DO [address] [place] [address] Social History Tobacco Use Types Packs/Day Years [...] encounter Miscellaneous Notes * Telephone Encounter - Fanta Krause, Clerical Staff - 09/15/2025 10:57 AM EDT Pt called to cancel EMG documented in this encounter Plan of Treatment Not on file documented as of this encounter Visit Diagnoses Not on filedocumented in this encounter Care Teams Rn Pain Management Relationship Specialty Start Date End Date Ryan Stack NP [address] [place] [address] PCP - General Nurse Practitioner-Family 12/22/22 documented as of this encounter
--- OUTSIDE RECORDS SUMMARY | 2025-10-13 11:57 | XMS_ITS | Encounter Summary ---
Author Organization [facility] Address [address] [place] [address] Care Team Providers Care Castables Worker Name Role Phone Ryan Stack NP Primary Care Provider Encounter Details Date Type Department Care Team (Late st Contact Info) Description 09/19/2025 [place] [address] Maksim Castorena DO [address] [place] [address] Social History Tobacco Use Types Packs/Day Years [...] Encounter - Lillian Cook Ortho Tech - 09/22/2025 7:00 AM EST Please see above * Telephone Encounter - Evonne Rebollar, Clerical Staff - 09/19/2025 4:37 PM EDT [email or web address] called requesting to RS pt for an EMG. She is scheduling on behalf of pt. [phone] ext [phone] documented in this encounter Plan of Treatment Not on file documented as of this encounter Visit Diagnoses Not on filedocumented in this encounter Care Teams Castables Worker Relationship Specialty Start Date End Date Ryan Stack NP [address] [place] [address] PCP - General Nurse Practitioner-Family 12/22/22 documented as of this encounter
--- OUTSIDE RECORDS SUMMARY | 2025-10-13 11:57 | XMS_ITS | Encounter Summary ---
Author Organization [facility] Address [address] [place] [id number] Care Team Providers Care Order Packer Name Role Phone Ryan Stack APRN Primary Care Provider Reason for Referral * Consultation (Routine) - Closed Specialty Diagnoses / Procedures Referred By Chiquita t Referred To Contact Rheumatology Diagnoses Elevated rheumatoid factor ELISEO positive Ryan Stack APRN [address] [place] [address] Phone: tel: fax: Referral ID Status Reason Start Date Expiration Date V isits Requested Visits Authorized [id number] Closed Specialty Services Required 03/15/2022 09/14/2023 1 1 Encounter Details Date Type Department Care Team (Late st Contact Info) Description 03/15/2022 Community [facility] [address] [place] [address] Ryan Stack APRN [address] [place] [address] Elevated rheumatoid factor (Primary Dx); ELISEO positive [...] positive documented in this encounter Care Teams Order Packer Relationship Specialty Start Date End Date Ryan Stack APRN [address] [place] [address] PCP - General 04/28/22 documented as of this encounter
--- OUTSIDE RECORDS SUMMARY | 2025-10-13 11:57 | XMS_ITS | Encounter Summary ---
Author Organization [facility] Address [address] [place] [address] Care Team Providers Care Slate Picker Name Role Phone Ryan Stack NP Primary Care Provider [phone] Encounter Details Date Type Department Care Team (Late st Contact Info) Description 08/29/2025 [place] [address] Maksim Castorena DO [address] [place] [address] Social History Tobacco Use Types Packs/Day Years [...] EMG appt. She [facility] is [facility] and is approved. documented in this encounter Plan of Treatment Not on file documented as of this encounter Visit Diagnoses Not on filedocumented in this encounter Care Teams Slate Picker Relationship Specialty Start Date End Date Ryan Stack NP [address] [place] [address] PCP - General Nurse Practitioner-Family 12/22/22 documented as of this encounter
--- OUTSIDE RECORDS SUMMARY | 2025-10-13 11:58 | XMS_ITS | Clinical Summary ---
Author Organization [facility] Address [address] [place] [address] Care Team Providers Care Bead Maker Name Role Phone Sreekanth Ryan Virgil FARLEY [...] if needed. 2 Active ergocalciferol 1.25 MG (51365 UT) capsule Take 1 capsule (50,000 Units) [...] needed. 3 Active Vitamin D3 1.25 MG (20971 UT) capsule Take 1 capsule (50,000 Units) [...] (06/28/2022): Added automatically from request for surgery [id number] Immunizations Immunization Administration Dates Next Due Influenza, [...] [facility]-HIV Screening 1965 [facility]-Hepatitis C Screening 1965 [facility]-/Child/Adol SDOH Screenings 1965 [facility]- SDOH Screenings 1983 [...] 2015 [facility]-Zoster Vaccines (1 of 2) 2015 [id number]-61 Vaccine ( season) 2025 07/24/2024, 09/13/2023, 03/14/2022, Additional history exists [facility]-Influenza Vaccine (#1) 2025 09/13/2023 [facility]-Depression Screening 09/06/2025 09/06/2024, 07/0 06/2022 [facility]-RSV Vaccine: 60+ Years or (1 - 1-dose 75+ series) 2040 [facility]-Obesity Intervention Completed 024, 03/01/2024, 08/31/2023, Additional [...] patient's age to complete this topic [facility] Care Teams Bead Maker Relationship Specialty Start Date End Date Ryan Stack APRN [address] [place] [address] PCP - General 04/28/22
--- OUTSIDE RECORDS SUMMARY | 2025-10-13 11:58 | XMS_ITS | Clinical Summary ---
Author Organization [facility] Address [address] [place] [address] Phone Care Team Providers Care Director Of Vocational Guidance Name Role Phone Ryan Stack NP Primary Care Provider [phone] Allergies Active Allergy Reactions Criticality Noted Date Comments Iodinated Contrast Media Hives Medium 07/18/2022 MRI contrast; not sure about topical betadine ?? Medications Blood Sugar Diagnostic (FREESTYLE LITE STRIPS) [facility] Strip Test blood glucose. 6 Active buPROPion [...] not sure 3 [facility] Test blood glucose. 5 Active metFORMIN (GLUCOPHAGE) [...] (01/09/2023): Added automatically from request for surgery [id number] Chondromalacia of right patella 01/09/2023 Overview (01/09/2023): Added automatically from request for surgery [id number] Encounters Date Type Department Care Team Description 09/19/2025 [place] [address] Maksim Castorena, DO 09/15/2025 [place] [address] Maksim Castorena, DO 08/29/2025 [place] [address] Maksim Castorena, DO 07/22/2025 [place] [address] Shubham Rivas PA Medication Refill from Last 3 Months Surgical History Surgery Date Site/Laterality Comments NECK SURGERY 06/20/2022 - 07/20/2022 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 ARM SURGERY Right elbow fx repair; all hardware removed KNEE ARTHROSCOPY 02/02/2023 Knee/Right Right knee arthroscopic partial medial meniscectomy with arthroscopic chondroplasty; Surgeon: Toy Erazo MD; Location: [facility]; Service: Orthopedics Medical History Medical History Date [...] 2) 2015 Breast Cancer Screening 11/17/2017 11/17/2015 COVID-19 Vaccine ( season) 2025 07/24/2024, 09/13/2023, 03/14/2022, Additional history exists Influenza Vaccine (#1) 2025 09/20/2024, 2022 Diabetic Eye Exam Discontinued 10/28/2022 Hepatitis B Vaccine Aged Out No longe r eligible based on patient's age to complete this topic Meningococcal B Vaccine Aged Out No l onger eligible based on patient's age to complete this topic Procedures Procedure Name Priority Date/Time Associated Diagnosis Comments DIABETES EYE EXAM Routine 10/28/2022 from Last 3 Months or Most Recently Relevant to Health Maintenance Results * DIABETES EYE EXAM (10/28/2022) Left Diabetic Retinopathy Not Present Present/Not Present SEP OFFICE Right Diabetic Retinopathy Not Present Present/Not Present SEP OFFICE us Historical Provider HEALTH MAINTENANCE Edited Re sult - Final SEP OFFICE from Last 3 Months or Most Recently Relevant to Health Maintenance Care Teams Director Of Vocational Guidance Relationship Specialty Start Date End Date Ryan Stack NP [address] [place] [address] PCP - General Nurse Practitioner-Family 12/22/22
[2025-10-13 12:55] LABS: Alanine Aminotransferase 37 U/L (12-78); Albumin Level 4.5 g/dl (3.5-5.0); Albumin/Globulin Ratio 1.5 (1.1-1.8); Alkaline Phosphatase 79 U/L (38-126); Anion Gap 14.0 mEq/L (5-15); Aspartate Amino Transferase 34 U/L (14-36); Bilirubin,Total 0.4 mg/dl (0.2-1.3); Blood Urea Nitrogen 15 mg/dl (7-17); Calcium 9.7 mg/dl (8.4-10.2); Carbon Dioxide 24 mmol/L (22.0-30.0); Chloride 95 mmol/L (98-107); Creatinine,Serum 0.90 mg/dl (0.52-1.04); Estimated Glomerular Filt Rate 64 ml/min (>60); GFR (African American) 77 ML/MIN (>60); Globulin 3.0 g/dL (1.3-3.2); Potassium 4.0 mmoL/L (3.5-5.1); Sodium 129 mmol/L (136-145); Total Protein,Serum 7.5 g/dl (6.3-8.2)
[2025-10-13 13:09] LABS: Glucose 444 mg/dl (74-100)
== END 2025-10-13 23:59 | disposition home or self-care (01) ==
LOC: LAB 11:42
PROVIDERS: PCP Nurse Practitioner Family; Visit Provider Obstetrics & Gynecology
DX: N18.30 Chronic kidney disease, stage 3 unspecified (principal); R25.2 Cramp and spasm; N39.0 Urinary tract infection, site not specified
CPT/HCPCS: 36415; 80053